=== PATIENT | male | born 1945 | race Caucasian/White ===

== ENCOUNTER → 2020-04-05 | Outpatient (CLI) | payer MEDICARE ==
--- NOTE | 2020-04-05 17:01 | Diagnostic Imaging Report ---
EXAM: CT Abdomen and Pelvis WITHOUT intravenous contrast INDICATION: Abdominal aortic aneurysm COMPARISON: None. TECHNIQUE: Abdomen and pelvis were scanned utilizing a multidetector helical scanner from the lung base to the pubic symphysis without administration of IV contrast. Coronal and sagittal reformations were obtained. IV CONTRAST: None ORAL CONTRAST: Water COMPLICATIONS: None RADIATION DOSE: Total DLP: 695 mGy*cm Dose modulation, iterative reconstruction, and/or weight based adjustment of the mA/kV was utilized to reduce the radiation dose to as low as reasonably achievable. FINDINGS: LOWER THORAX: Normal. HEPATOBILIARY: No focal liver lesion. Status post cholecystectomy. SPLEEN: No splenomegaly. PANCREAS: No focal masses or ductal dilatation. ADRENALS: No adrenal nodules. KIDNEYS/URETERS: No hydronephrosis, stones, or solid mass lesions. PELVIC ORGANS/BLADDER: Unremarkable. PERITONEUM / RETROPERITONEUM: No free air or fluid. LYMPH NODES: No lymphadenopathy. VESSELS: Moderate atherosclerotic calcifications of the abdominal aorta and major branches. Infrarenal abdominal aortic aneurysm measures up to 4.3 x 4.0 cm at its widest point. 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 GI TRACT: Diverticulosis without CT evidence of diverticulitis. No abnormal bowel thickening. No bowel obstruction. Normal appendix. BONES AND SOFT TISSUES: No acute osseous injury. No suspicious lytic or blastic lesions. Prominent degenerative changes of the visualized spine with a prominent Schmorl's node and loss of vertebral body height at L1 and T12. 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 Recommend follow up with [facility] in 12 months for continued surveillance. Signed by: Hal Gallo MD on 04/05/2020 4:58 PM
== END ==
LOC: CARD 15:38
PROVIDERS: ATTEND Family Medicine
DX: I71.4 Abdominal aortic aneurysm, without rupture (principal); I72.3 Aneurysm of iliac artery
CPT/HCPCS: 74176; 93880

== ENCOUNTER 2020-06-21 03:29 | Inpatient (IN) | payer MEDICARE ==
[~2020-06-21] VITALS: Ht 177.8 cm; Wt 81.4 kg
[2020-06-21] MEDS ORDERED: SODIUM CHLORIDE 0.9% 1000ML 1,000 ML IV ONE (03:45)
[2020-06-21] MEDS ORDERED: ACETAMINOPHEN 325 MG TAB PO ONE (03:45)
[2020-06-21] MEDS ORDERED: CEFEPIME 2 GM/NS 0.9% 100 ML 100 ML IV ONE ×2 (03:45→04:15)
[2020-06-21] MEDS ORDERED: PIPER-TAZ 3.375 GM 50 ML IV ONE (03:45)
[2020-06-21 03:55] LABS: BASOPHILS % 0.5 % (0.0-1.0); EOSINOPHILS % 0.1 % (0.0-6.0); HEMOGLOBIN 11.7 g/dL (14.0-18.0); LYMPHOCYTES # (AUTO) 0.6 (1.0-3.2); LYMPHOCYTES % 7.6 % (18.0-39.1); MEAN CORPUSCULAR HEMOGLOBIN 29.1 pg (28-32); MEAN CORPUSCULAR HGB CONC 32.5 g/dL (31-35); MEAN CORPUSCULAR VOLUME 89.6 fL (81-99); MONOCYTES # (AUTO) 0.9 (0.2-0.8); MONOCYTES % 10.3 % (4.4-11.3); NEUTROPHILS # (AUTO) 6.7 (2.1-6.9); PLATELET COUNT 167 x10e3/uL (140-360); RED BLOOD COUNT 4.02 x10e6/uL (4.3-5.7); RED CELL DISTRIBUTION WIDTH 12.8 % (11.7-14.4)
[2020-06-21 03:59] LABS: CLARITY,URINE CLEAR (CLEAR); COLOR,URINE YELLOW (YELLOW); KETONES,URINE 2+ (NEGATIVE); LEUKOCYTE ESTERASE ,URINE NEGATIVE (NEGATIVE); NITRITE,URINE NEGATIVE (NEGATIVE); PROTEIN,URINE DIPSTICK 2+ (NEGATIVE)
[2020-06-21 04:00] LABS: BILIRUBIN,URINE NEGATIVE (NEGATIVE); URINE UROBILINOGEN 1 mg/dL (0.2 - 1)
[2020-06-21 04:04] LABS: INR 1.04; PROTHROMBIN TIME 14.1 seconds (11.9-14.5)
[2020-06-21 04:05] LABS: BACTERIA,URINE FEW /HPF; EPITHELIAL CELLS,URINE MODERATE /LPF; PARTIAL THROMBOPLASTIN TIME 30.7 seconds (23.8-35.5); WBC,URINE (MAN) 0-5 /HPF (0-5)
[2020-06-21] MEDS ORDERED: PIPER-TAZ 3.375 GM 0 ML ONE (04:10)
[2020-06-21 04:13] LABS: AMYLASE 40 U/L (25-125); LIPASE 13 U/L (8-78)
[2020-06-21 04:16] LABS: ALBUMIN 3.9 g/dL (3.5-5.0); ALBUMIN/GLOBULIN RATIO 1.1 (0.8-2.0); ANION GAP 17.7 mmol/L (8-16); CALCIUM 8.9 mg/dL (8.4-10.2); CREATININE, SERUM 2.81 mg/dL (0.72-1.25)
[2020-06-21 04:17] LABS: POTASSIUM 2.7 mmol/L (3.5-5.1)
[2020-06-21 04:22] LABS: CREATINE KINASE MB 2.2 ng/mL (0-5.0)
[2020-06-21] MEDS ORDERED: POTASSIUM CHLORIDE 20MEQ/15ML UDC PO ONE (04:30)
[2020-06-21] MEDS: CEFEPIME 1GM/NS 0.9% 50 ML 50 ML IV SCH ×2 (05:43→18:31)
[2020-06-21] MEDS ORDERED: ONDANSETRON HCL INJ 2MG/ML 2ML 2 MG/ML VIAL IV PRN (05:45)
[2020-06-21] MEDS ORDERED: DEXTROSE IV ONE (09:00)
[2020-06-21] MEDS ORDERED: SOD CHL IV ONE (09:00)
[2020-06-21] MEDS ORDERED: POTASSIUM CHLORIDE IV ONE (09:00)
[2020-06-21] MEDS ORDERED: METFORMIN HCL500 MG PO (13:54)
[2020-06-21] MEDS ORDERED: POTASSIUM CHLO20 ME1 PEG (13:58)
[2020-06-21] MEDS ORDERED: AMARYL4 MG PO (13:59)
[2020-06-21] MEDS ORDERED: BUMETANIDE1 MG PO (13:59)
[2020-06-21] MEDS ORDERED: LISINOPRIL5 MG PO (13:59)
[2020-06-21] MEDS ORDERED: ASPIRIN EC81 MG PO (14:00)
[2020-06-21] MEDS ORDERED: COREG12.5 MG PO (14:00)
[2020-06-21 15:06] VITALS: BP 158/82
[2020-06-21 15:53] VITALS: BP 158/82
[2020-06-21] MEDS ORDERED: VANCOMYCIN 1GM/NS 250 ML 250 ML IV ONE (16:00)
[2020-06-21] MEDS ORDERED: METOPROLOL TART25 MG PO (19:35)
[2020-06-21] MEDS ORDERED: TIZANIDINE HCL4 MG PO (19:35)
[2020-06-21] MEDS ORDERED: RAYALDEE30 MCG PO (19:35)
[2020-06-21] MEDS ORDERED: LASIX80 MG PO (19:35)
[2020-06-21] MEDS ORDERED: NIFEDIPINE ER30 M1 PO (19:35)
[2020-06-21 20:00] VITALS: BP 144/76
[2020-06-21 20:26] VITALS: BP 144/76
[2020-06-21 20:29] VITALS: BP 144/76
[2020-06-22] VITALS: BP 152/87
[2020-06-22] MEDS ORDERED: SODIUM CHLORIDE 0.9% 250ML 250 ML ONE (05:20)
[2020-06-22] MEDS: CEFEPIME 1GM/NS 0.9% 50 ML 50 ML IV SCH ×2 (05:30→18:20)
[2020-06-22] MEDS ORDERED: SIMVASTATIN40 MG PO (07:02)
[2020-06-22] MEDS ORDERED: FAMOTIDINE20 MG PO (07:04)
[2020-06-22] MEDS ORDERED: ASPIRIN ENTERI325 MG PO (07:06)
[2020-06-22] MEDS ORDERED: BENADRYL25 M1 PO (07:08)
[2020-06-22] MEDS ORDERED: FUROSEMIDE40 MG PO (07:10)
[2020-06-22 07:29] LABS: BASOPHILS % 0.6 % (0.0-1.0); EOSINOPHILS # (AUTO) 0.2 (0.0-0.4); EOSINOPHILS % 2.4 % (0.0-6.0); HEMATOCRIT 37.9 % (38.2-49.6); HEMOGLOBIN 12.4 g/dL (14.0-18.0); LYMPHOCYTES % 15.3 % (18.0-39.1); MEAN CORPUSCULAR HEMOGLOBIN 29.8 pg (28-32); MEAN CORPUSCULAR HGB CONC 32.7 g/dL (31-35); MEAN CORPUSCULAR VOLUME 91.1 fL (81-99); MONOCYTES # (AUTO) 0.7 (0.2-0.8); MONOCYTES % 10.7 % (4.4-11.3); NEUTROPHILS # (AUTO) 4.8 (2.1-6.9); NEUTROPHILS % 70.4 % (38.7-80.0); PLATELET COUNT 142 x10e3/uL (140-360); RED BLOOD COUNT 4.16 x10e6/uL (4.3-5.7); RED CELL DISTRIBUTION WIDTH 12.8 % (11.7-14.4)
[2020-06-22 07:35] VITALS: BP 158/78
[2020-06-22] MEDS ORDERED: RAYALDEE30 MCG PO (07:35)
[2020-06-22 07:49] LABS: ALBUMIN 3.7 g/dL (3.5-5.0); ALBUMIN/GLOBULIN RATIO 1.1 (0.8-2.0); ANION GAP 15.3 mmol/L (8-16); CALCIUM 8.9 mg/dL (8.4-10.2); CREATININE, SERUM 2.05 mg/dL (0.72-1.25); POTASSIUM 3.3 mmol/L (3.5-5.1)
[2020-06-22 08:03] LABS: MAGNESIUM 1.9 MG/DL (1.3-2.1)
[2020-06-22] MEDS ORDERED: FLUTICASONE P15.8 ML (08:48)
[2020-06-22] MEDS ORDERED: LOPERAMIDE2 MG PO (08:48)
[2020-06-22] MEDS: LACTASE 3,000 UNIT TAB PO SCH (09:29)
[2020-06-22 11:41] VITALS: BP 144/71
[2020-06-22] MEDS ORDERED: POTASSIUM PHOSPHATE 15 MM in SODIUM CHLORIDE 0.9% 250ML 250 ML IV ONE (12:00)
[2020-06-22] MEDS: ASPIRIN 325 MG TAB EC PO SCH (12:28)
[2020-06-22] MEDS: ALBUTEROL/IPRATROPIUM 3 ML NEB NEB SCH ×2 (13:00→19:03)
[2020-06-22] MEDS: ACETAMINOPHEN 325 MG TAB PO PRN (13:21)
[2020-06-22 15:36] VITALS: BP 133/60
[2020-06-22] MEDS ORDERED: METOPROLOL TARTRATE 25 MG TAB PO SCH (17:00)
[2020-06-22] MEDS ORDERED: LORAZEPAM INJ 2 MG/ML VIAL IV PRN (18:00)
[2020-06-22] MEDS: METOPROLOL TARTRATE 50 MG TAB PO SCH (18:31)
[2020-06-22] MEDS: FAMOTIDINE 20 MG TAB PO SCH (18:31)
[2020-06-22 20:00] VITALS: BP 129/59
[2020-06-22 20:01] VITALS: BP 129/59
[2020-06-22] MEDS: SIMVASTATIN 40 MG TAB PO SCH (20:10)
[2020-06-22] MEDS ORDERED: LACTASE 3,000 UNIT TAB PO SCH (21:00)
[2020-06-23] VITALS (7 sets, daily range): BP systolic 122–139; BP diastolic 46–64
[2020-06-23] MEDS: ALBUTEROL/IPRATROPIUM 3 ML NEB NEB SCH ×3 (01:00→13:00)
[2020-06-23 05:55] LABS: BASOPHILS % 0.8 % (0.0-1.0); HEMATOCRIT 33.2 % (38.2-49.6); HEMOGLOBIN 10.8 g/dL (14.0-18.0); LYMPHOCYTES # (AUTO) 0.6 (1.0-3.2); LYMPHOCYTES % 13.1 % (18.0-39.1); MEAN CORPUSCULAR HEMOGLOBIN 29.5 pg (28-32); MEAN CORPUSCULAR HGB CONC 32.5 g/dL (31-35); MEAN CORPUSCULAR VOLUME 90.7 fL (81-99); MONOCYTES # (AUTO) 0.3 (0.2-0.8); MONOCYTES % 5.7 % (4.4-11.3); NEUTROPHILS # (AUTO) 3.8 (2.1-6.9); NEUTROPHILS % 79.8 % (38.7-80.0); PLATELET COUNT 129 x10e3/uL (140-360); RED BLOOD COUNT 3.66 x10e6/uL (4.3-5.7); RED CELL DISTRIBUTION WIDTH 12.9 % (11.7-14.4)
[2020-06-23] MEDS: CEFEPIME 1GM/NS 0.9% 50 ML 50 ML IV SCH ×2 (05:58→16:49)
[2020-06-23 06:16] LABS: ANION GAP 13.2 mmol/L (8-16); CALCIUM 8.3 mg/dL (8.4-10.2); CREATININE, SERUM 2.18 mg/dL (0.72-1.25); POTASSIUM 3.2 mmol/L (3.5-5.1)
[2020-06-23] MEDS: POTASSIUM CHLORIDE 20 MEQ TAB CR PO SCH (09:52)
[2020-06-23] MEDS: LACTASE 3,000 UNIT TAB PO SCH (09:52)
[2020-06-23] MEDS: ASPIRIN 325 MG TAB EC PO SCH (09:52)
[2020-06-23] MEDS: METOPROLOL TARTRATE 50 MG TAB PO SCH ×2 (09:52→16:49)
[2020-06-23] MEDS: FAMOTIDINE 20 MG TAB PO SCH ×2 (09:52→16:49)
[2020-06-23 16:40] LABS: FREE THYROXINE INDEX 1.6435 (1.4-3.8); THYROID STIMULATING HORMONE 1.978 uIU/mL (0.350-4.940)
[2020-06-23] MEDS: ACETAMINOPHEN 325 MG TAB PO PRN (16:50)
[2020-06-23] MEDS ORDERED: VANCOMYCIN 1GM/NS 250 ML 250 ML IV ONE ×2 (19:00→19:30)
[2020-06-23] MEDS: TAMSULOSIN HCL 0.4 MG CAP PO SCH (19:36)
[2020-06-23] MEDS: SIMVASTATIN 40 MG TAB PO SCH (19:37)
[2020-06-23 21:08] LABS: ALPHA 2 GLOBULIN URINE PEP 24.5 % (.)
[2020-06-23] MEDS: MEROPENEM 1GM 100 ML IV SCH (23:00)
[2020-06-24] VITALS (11 sets, daily range): BP systolic 81–125; BP diastolic 43–64
[2020-06-24] MEDS: ACETAMINOPHEN 325 MG TAB PO PRN ×3 (03:34→22:55)
[2020-06-24] MEDS: MEROPENEM 1GM 100 ML IV SCH ×2 (04:52→13:19)
[2020-06-24 07:12] LABS: ANION GAP 13.3 mmol/L (8-16); CALCIUM 8.4 mg/dL (8.4-10.2); CREATININE, SERUM 2.36 mg/dL (0.72-1.25); MAGNESIUM 1.9 MG/DL (1.3-2.1); PHOSPHORUS 2.7 MG/DL (2.3-4.7); POTASSIUM 3.3 mmol/L (3.5-5.1)
[2020-06-24] MEDS: ALBUTEROL/IPRATROPIUM 3 ML NEB NEB SCH ×3 (07:38→15:02)
[2020-06-24] MEDS: LACTASE 3,000 UNIT TAB PO SCH (09:46)
[2020-06-24] MEDS: ASPIRIN 325 MG TAB EC PO SCH (09:46)
[2020-06-24] MEDS: POTASSIUM CHLORIDE 20 MEQ TAB CR PO SCH (09:46)
[2020-06-24] MEDS: FAMOTIDINE 20 MG TAB PO SCH ×2 (09:47→17:14)
[2020-06-24] MEDS: METOPROLOL TARTRATE 50 MG TAB PO SCH ×2 (09:47→17:00)
[2020-06-24] MEDS: DOCUSATE SODIUM 100 MG CAP PO SCH (10:04)
[2020-06-24] MEDS: SODIUM CHLORIDE 0.9% 1000ML 1,000 ML IV SCH (13:19)
[2020-06-24] MEDS: TAMSULOSIN HCL 0.4 MG CAP PO SCH (20:44)
[2020-06-24] MEDS: SIMVASTATIN 40 MG TAB PO SCH (20:44)
[2020-06-25] VITALS (35 sets, daily range): BP systolic 70–145; BP diastolic 31–99
[2020-06-25] MEDS: SODIUM CHLORIDE 0.9% 1000ML 1,000 ML IV SCH ×3 (00:25→18:05)
[2020-06-25] MEDS: ALBUTEROL/IPRATROPIUM 3 ML NEB NEB SCH ×4 (01:00→19:25)
[2020-06-25] MEDS ORDERED: SODIUM CHLORIDE 0.9% 1000ML 1,000 ML IV SCH (03:45)
[2020-06-25 04:07] LABS: ABG HCO3 22 mmol/L (22-26); ABG PCO2 35 mmHg (35-45); ABG PH 7.39 (7.35-7.45); ABG PO2 76 mmHg (80-105)
[2020-06-25 04:08] LABS: ABG TCO2 23
[2020-06-25 04:10] LABS: BASOPHILS % 0.5 % (0.0-1.0); EOSINOPHILS % 0.3 % (0.0-6.0); HEMATOCRIT 29.1 % (38.2-49.6); HEMOGLOBIN 9.6 g/dL (14.0-18.0); LYMPHOCYTES # (AUTO) 0.4 (1.0-3.2); LYMPHOCYTES % 5.6 % (18.0-39.1); MEAN CORPUSCULAR VOLUME 87.9 fL (81-99); MONOCYTES # (AUTO) 0.4 (0.2-0.8); MONOCYTES % 6.2 % (4.4-11.3); NEUTROPHILS # (AUTO) 5.5 (2.1-6.9); NEUTROPHILS % 86.2 % (38.7-80.0); PLATELET COUNT 90 x10e3/uL (140-360); RED BLOOD COUNT 3.31 x10e6/uL (4.3-5.7); RED CELL DISTRIBUTION WIDTH 13.1 % (11.7-14.4)
[2020-06-25] MEDS ORDERED: NOREPINEPHRINE 8 MG/D5W 250 ML 250 ML ONE (04:32)
[2020-06-25 04:33] LABS: ALBUMIN 2.8 g/dL (3.5-5.0); ANION GAP 13.6 mmol/L (8-16); CALCIUM 7.9 mg/dL (8.4-10.2); CREATININE, SERUM 3.36 mg/dL (0.72-1.25); POTASSIUM 3.6 mmol/L (3.5-5.1)
[2020-06-25] MEDS: NOREPINEPHRINE INJ 4MG/4ML 8 MG in DEXTROSE 5% 250ML 250 ML IV SCH ×2 (04:37→05:11)
[2020-06-25] MEDS: MEROPENEM 500MG/ NS 50ML 50 ML IV SCH (06:07)
[2020-06-25] MEDS ORDERED: MIDAZOLAM HCL 2 MG/2 ML VIAL IV STA (08:19)
[2020-06-25] MEDS ORDERED: MORPHINE SULFATE INJ 4 MG/ML INJ 1ML ONE (08:20)
[2020-06-25] MEDS ORDERED: LIDOCAINE HCL 2% LOCAL 20 ML VIAL ONE (08:28)
[2020-06-25] MEDS ORDERED: MIDAZOLAM HCL 2 MG/2 ML VIAL ONE (08:30)
[2020-06-25] MEDS ORDERED: MORPHINE SULFATE INJ 4 MG/ML INJ 1ML IV ONE (08:30)
[2020-06-25] MEDS: METOPROLOL TARTRATE 50 MG TAB PO SCH ×2 (09:00→17:00)
[2020-06-25] MEDS: FAMOTIDINE 20 MG TAB PO SCH ×2 (09:00→17:00)
[2020-06-25] MEDS: POTASSIUM CHLORIDE 20 MEQ TAB CR PO SCH (09:00)
[2020-06-25] MEDS: ASPIRIN 325 MG TAB EC PO SCH (09:00)
[2020-06-25] MEDS: DOCUSATE SODIUM 100 MG CAP PO SCH (09:00)
[2020-06-25] MEDS: LACTASE 3,000 UNIT TAB PO SCH (09:00)
[2020-06-25] MEDS ORDERED: SODIUM BICARBONATE 8.4% INJ 50 ML SYR IV NR (09:30)
[2020-06-25] MEDS ORDERED: SODIUM BICARB 4.2% 150 MEQ in DEXTROSE 5% 1,000 ML IV SCH (10:00)
[2020-06-25] MEDS: SODIUM BICARBONATE 8.4% 150 ML in DEXTROSE 5% 1,000 ML IV SCH (10:00)
[2020-06-25] MEDS ORDERED: HEPARIN SOD (PORCINE) 1000 UNIT/ML SDV ONE (11:32)
[2020-06-25] MEDS ORDERED: HEPARIN SOD (PORCINE) 1000 UNIT/ML SDV IV PRN (13:00)
[2020-06-25 13:49] LABS: ANION GAP 14.8 mmol/L (8-16); CALCIUM 7.7 mg/dL (8.4-10.2); CREATININE, SERUM 3.77 mg/dL (0.72-1.25); POTASSIUM 3.8 mmol/L (3.5-5.1)
[2020-06-25] MEDS: ACETAMINOPHEN 325 MG SUPP PR PRN (14:49)
[2020-06-25] MEDS: LINEZOLID 600 MG/D5W 300ML 300 ML IV SCH (17:59)
[2020-06-25] MEDS: ACETAMINOPHEN/CODEINE 300MG - 30MG TAB PO PRN (19:30)
[2020-06-25] MEDS: SIMVASTATIN 40 MG TAB PO SCH (20:33)
[2020-06-25] MEDS: TAMSULOSIN HCL 0.4 MG CAP PO SCH (20:33)
[2020-06-25] MEDS: HEPARIN SOD (PORCINE) 5,000 UNIT/ML VIAL SC SCH (21:00)
[2020-06-26] VITALS (17 sets, daily range): BP systolic 97–144; BP diastolic 40–98
[2020-06-26] MEDS: ALBUTEROL/IPRATROPIUM 3 ML NEB NEB SCH ×4 (00:50→19:00)
[2020-06-26] MEDS: SODIUM BICARBONATE 8.4% 150 ML in DEXTROSE 5% 1,000 ML IV SCH ×2 (00:57→18:33)
[2020-06-26] MEDS: ACETAMINOPHEN 325 MG TAB PO PRN (01:38)
[2020-06-26] MEDS ORDERED: NOREPINEPHRINE 8 MG/D5W 250 ML 250 ML ONE (05:20)
[2020-06-26 05:31] LABS: BASOPHILS % 0.6 % (0.0-1.0); EOSINOPHILS # (AUTO) 0.1 (0.0-0.4); EOSINOPHILS % 0.7 % (0.0-6.0); HEMOGLOBIN 8.9 g/dL (14.0-18.0); LYMPHOCYTES # (AUTO) 0.7 (1.0-3.2); LYMPHOCYTES % 10.3 % (18.0-39.1); MEAN CORPUSCULAR HEMOGLOBIN 28.6 pg (28-32); MEAN CORPUSCULAR VOLUME 86.8 fL (81-99); MONOCYTES # (AUTO) 0.2 (0.2-0.8); MONOCYTES % 3.4 % (4.4-11.3); NEUTROPHILS # (AUTO) 5.9 (2.1-6.9); NEUTROPHILS % 84.3 % (38.7-80.0); PLATELET COUNT 85 x10e3/uL (140-360); RED BLOOD COUNT 3.11 x10e6/uL (4.3-5.7); RED CELL DISTRIBUTION WIDTH 13.2 % (11.7-14.4)
[2020-06-26] MEDS: LINEZOLID 600 MG/D5W 300ML 300 ML IV SCH (05:33)
[2020-06-26] MEDS: MEROPENEM 500MG/ NS 50ML 50 ML IV SCH (05:33)
[2020-06-26] MEDS: NOREPINEPHRINE INJ 4MG/4ML 8 MG in DEXTROSE 5% 250ML 250 ML IV SCH (05:35)
[2020-06-26] MEDS: ACETAMINOPHEN/CODEINE 300MG - 30MG TAB PO PRN ×2 (05:38→20:53)
[2020-06-26 05:48] LABS: INR 1.2; PROTHROMBIN TIME 15.8 seconds (11.9-14.5)
[2020-06-26 06:04] LABS: ALBUMIN 2.6 g/dL (3.5-5.0); ALBUMIN/GLOBULIN RATIO 1.1 (0.8-2.0); ANION GAP 14.3 mmol/L (8-16); CALCIUM 7.7 mg/dL (8.4-10.2); CREATININE, SERUM 4.7 mg/dL (0.72-1.25); POTASSIUM 3.3 mmol/L (3.5-5.1)
[2020-06-26] MEDS: SODIUM CHLORIDE 0.9% 1000ML 1,000 ML IV SCH (07:25)
[2020-06-26] MEDS: HEPARIN SOD (PORCINE) 5,000 UNIT/ML VIAL SC SCH (07:46)
[2020-06-26] MEDS: ASPIRIN 325 MG TAB EC PO SCH (07:48)
[2020-06-26] MEDS: DOCUSATE SODIUM 100 MG CAP PO SCH (07:48)
[2020-06-26] MEDS: POTASSIUM CHLORIDE 20 MEQ TAB CR PO SCH (07:49)
[2020-06-26] MEDS: FAMOTIDINE 20 MG TAB PO SCH ×2 (07:49→18:18)
[2020-06-26] MEDS: METOPROLOL TARTRATE 50 MG TAB PO SCH (07:49)
[2020-06-26 08:19] LABS: BAND NEUTROPHILS % (MANUAL) 9 %; LYMPHOCYTES % (MANUAL) 11 % (19-48); MONOCYTES % (MANUAL) 3 % (3.4-9.0); NEUTROPHILS % (MANUAL) 77 % (40-74)
[2020-06-26 08:20] LABS: PLATELET ESTIMATE SLIGHTLY DECREASED; PLATELET MORPHOLOGY COMMENT NORMAL; RBC MORPHOLOGY COMMENT NORMAL
[2020-06-26] MEDS: LACTASE 3,000 UNIT TAB PO SCH (09:00)
[2020-06-26] MEDS ORDERED: POTASSIUM PHOSPHATE 15 MM in SODIUM CHLORIDE 0.9% 250ML 250 ML IV ONE (12:00)
[2020-06-26] MEDS ORDERED: AMIODARONE HCL 150 MG/100 ML BAG IV ONE (18:15)
[2020-06-26] MEDS ORDERED: AMIODARONE HCL 900 MG in DEXTROSE 5% 500ML 500 ML IV SCH (18:15)
[2020-06-26] MEDS ORDERED: AMIODARONE HCL 100 ML IV ONE (18:26)
[2020-06-26] MEDS ORDERED: AMIODARONE HCL 150 MG in DEXTROSE 5% 100ML 100 ML IV SCH (18:35)
[2020-06-26] MEDS ORDERED: HEPARIN SOD (PORCINE) 1000 UNIT/ML SDV IV ONE (18:35)
[2020-06-26] MEDS ORDERED: AMIODARONE HCL 900 MG in DEXTROSE 5 % 500ML BOTTLE 500 ML IV SCH (18:40)
[2020-06-26] MEDS: ACETAMINOPHEN 325 MG SUPP PR PRN (19:45)
[2020-06-26] MEDS: HEPARIN 25,000 UNIT 900 UNIT in DEXTROSE 5% 250ML 250 ML IV SCH (19:46)
[2020-06-26] MEDS: SIMVASTATIN 40 MG TAB PO SCH (20:28)
[2020-06-27] VITALS (15 sets, daily range): BP systolic 81–136; BP diastolic 42–84
[2020-06-27] MEDS: ALBUTEROL/IPRATROPIUM 3 ML NEB NEB SCH ×4 (01:00→22:18)
[2020-06-27] MEDS: SODIUM CHLORIDE 0.9% 1000ML 1,000 ML IV SCH (01:52)
[2020-06-27 06:24] LABS: ANION GAP 17.5 mmol/L (8-16); CALCIUM 7.3 mg/dL (8.4-10.2); CREATININE, SERUM 5.67 mg/dL (0.72-1.25); MAGNESIUM 1.8 MG/DL (1.3-2.1); PHOSPHORUS 2.8 MG/DL (2.3-4.7); POTASSIUM 3.5 mmol/L (3.5-5.1)
[2020-06-27] MEDS: SODIUM BICARBONATE 8.4% 150 ML in DEXTROSE 5% 1,000 ML IV SCH (06:46)
[2020-06-27] MEDS: ASPIRIN 325 MG TAB EC PO SCH (08:52)
[2020-06-27] MEDS: DOCUSATE SODIUM 100 MG CAP PO SCH (08:52)
[2020-06-27] MEDS: FAMOTIDINE 20 MG TAB PO SCH ×2 (08:52→18:00)
[2020-06-27] MEDS: POTASSIUM CHLORIDE 20 MEQ TAB CR PO SCH (08:52)
[2020-06-27] MEDS: FUROSEMIDE 20 MG TAB PO SCH (08:52)
[2020-06-27] MEDS: LACTASE 3,000 UNIT TAB PO SCH (08:52)
[2020-06-27] MEDS ORDERED: MANNITOL 25% 12.5GM/50ML 100 ML ONE (10:50)
[2020-06-27] MEDS ORDERED: SODIUM CHLORIDE 0.9% 1000ML 2,000 ML ONE (10:51)
[2020-06-27] MEDS ORDERED: HEPARIN SOD (PORCINE) 1000 UNIT/ML SDV ONE (10:51)
[2020-06-27] MEDS ORDERED: SODIUM CHLORIDE 0.9% 1000ML 1,000 ML ONE (11:36)
[2020-06-27] MEDS: AMIODARONE HCL 200 MG TAB PO SCH ×2 (13:50→21:35)
[2020-06-27] MEDS: HEPARIN 25,000 UNIT 900 UNIT in DEXTROSE 5% 250ML 250 ML IV SCH (20:00)
[2020-06-27] MEDS: SIMVASTATIN 40 MG TAB PO SCH (21:34)
[2020-06-27] MEDS: ACETAMINOPHEN/CODEINE 300MG - 30MG TAB PO PRN (21:34)
[2020-06-28] VITALS (18 sets, daily range): BP systolic 95–140; BP diastolic 46–106
[2020-06-28] MEDS: ALBUTEROL/IPRATROPIUM 3 ML NEB NEB SCH ×5 (01:00→23:55)
[2020-06-28] MEDS: NOREPINEPHRINE INJ 4MG/4ML 8 MG in DEXTROSE 5% 250ML 250 ML IV SCH (03:00)
[2020-06-28] MEDS: AMIODARONE HCL 200 MG TAB PO SCH ×3 (05:59→20:59)
[2020-06-28] MEDS: ACETAMINOPHEN/CODEINE 300MG - 30MG TAB PO PRN ×3 (05:59→21:17)
[2020-06-28 06:02] LABS: BASOPHILS % 0.3 % (0.0-1.0); EOSINOPHILS # (AUTO) 0.6 (0.0-0.4); EOSINOPHILS % 4.8 % (0.0-6.0); HEMATOCRIT 25.4 % (38.2-49.6); HEMOGLOBIN 8.3 g/dL (14.0-18.0); LYMPHOCYTES # (AUTO) 1.8 (1.0-3.2); LYMPHOCYTES % 13.9 % (18.0-39.1); MEAN CORPUSCULAR HEMOGLOBIN 28.6 pg (28-32); MEAN CORPUSCULAR HGB CONC 32.7 g/dL (31-35); MEAN CORPUSCULAR VOLUME 87.6 fL (81-99); MONOCYTES # (AUTO) 0.6 (0.2-0.8); MONOCYTES % 4.2 % (4.4-11.3); NEUTROPHILS # (AUTO) 10.1 (2.1-6.9); RED CELL DISTRIBUTION WIDTH 13.7 % (11.7-14.4)
[2020-06-28 06:09] LABS: PLATELET COUNT 114 x10e3/uL (140-360)
[2020-06-28 06:27] LABS: ALBUMIN 2.6 g/dL (3.5-5.0); ANION GAP 15.2 mmol/L (8-16); CALCIUM 7.5 mg/dL (8.4-10.2); CREATININE, SERUM 5.36 mg/dL (0.72-1.25); POTASSIUM 4.2 mmol/L (3.5-5.1)
[2020-06-28 06:56] LABS: EOSINOPHILS % (MANUAL) 3 % (0-7); LYMPHOCYTES % (MANUAL) 15 % (19-48); MONOCYTES % (MANUAL) 1 % (3.4-9.0); NEUTROPHILS % (MANUAL) 81 % (40-74); PLATELET ESTIMATE SLIGHTLY DECREASED; PLATELET MORPHOLOGY COMMENT NORMAL; RBC MORPHOLOGY COMMENT NORMAL
[2020-06-28] MEDS: DOCUSATE SODIUM 100 MG CAP PO SCH (08:04)
[2020-06-28] MEDS: ASPIRIN 325 MG TAB EC PO SCH (08:04)
[2020-06-28] MEDS: POTASSIUM CHLORIDE 20 MEQ TAB CR PO SCH (08:05)
[2020-06-28] MEDS: LACTASE 3,000 UNIT TAB PO SCH (08:05)
[2020-06-28] MEDS: FUROSEMIDE 20 MG TAB PO SCH (08:05)
[2020-06-28] MEDS: FAMOTIDINE 20 MG TAB PO SCH ×2 (08:05→17:54)
[2020-06-28] MEDS ORDERED: SODIUM CHLORIDE 0.9% 1000ML 1,000 ML ONE (08:35)
[2020-06-28] MEDS ORDERED: HEPARIN SOD (PORCINE) 1000 UNIT/ML SDV IV PRN (11:00)
[2020-06-28] MEDS ORDERED: SODIUM CHLORIDE 0.9% 1000ML 2,000 ML IV PRN (11:00)
[2020-06-28] MEDS: HEPARIN 25,000 UNIT 900 UNIT in DEXTROSE 5% 250ML 250 ML IV SCH (18:45)
[2020-06-28] MEDS: SIMVASTATIN 40 MG TAB PO SCH (20:59)
[2020-06-29] VITALS (7 sets, daily range): BP systolic 94–132; BP diastolic 60–92
[2020-06-29 04:51] LABS: BASOPHILS % 0.3 % (0.0-1.0); EOSINOPHILS # (AUTO) 0.2 (0.0-0.4); EOSINOPHILS % 1.8 % (0.0-6.0); HEMATOCRIT 23.3 % (38.2-49.6); HEMOGLOBIN 7.8 g/dL (14.0-18.0); LYMPHOCYTES # (AUTO) 1.1 (1.0-3.2); LYMPHOCYTES % 9.5 % (18.0-39.1); MEAN CORPUSCULAR HGB CONC 33.5 g/dL (31-35); MEAN CORPUSCULAR VOLUME 89.6 fL (81-99); MONOCYTES # (AUTO) 0.5 (0.2-0.8); MONOCYTES % 4.7 % (4.4-11.3); NEUTROPHILS # (AUTO) 9.2 (2.1-6.9); NEUTROPHILS % 82.9 % (38.7-80.0); PLATELET COUNT 152 x10e3/uL (140-360); RED CELL DISTRIBUTION WIDTH 13.8 % (11.7-14.4)
[2020-06-29 05:10] LABS: ANION GAP 14.2 mmol/L (8-16); CALCIUM 7.5 mg/dL (8.4-10.2); CREATININE, SERUM 4.42 mg/dL (0.72-1.25); POTASSIUM 4.2 mmol/L (3.5-5.1)
[2020-06-29] MEDS: AMIODARONE HCL 200 MG TAB PO SCH ×3 (06:08→21:40)
[2020-06-29 07:10] LABS: EOSINOPHILS % (MANUAL) 2 % (0-7); LYMPHOCYTES % (MANUAL) 9 % (19-48); MONOCYTES % (MANUAL) 4 % (3.4-9.0); NEUTROPHILS % (MANUAL) 85 % (40-74)
[2020-06-29 07:11] LABS: HYPOCHROMASIA SLIGHT
[2020-06-29 07:12] LABS: PLATELET ESTIMATE ADEQUATE; PLATELET MORPHOLOGY COMMENT NORMAL; RBC MORPHOLOGY COMMENT NORMAL
[2020-06-29] MEDS: ALBUTEROL/IPRATROPIUM 3 ML NEB NEB SCH ×3 (07:20→19:20)
[2020-06-29] MEDS: DOCUSATE SODIUM 100 MG CAP PO SCH (08:10)
[2020-06-29] MEDS: ASPIRIN 325 MG TAB EC PO SCH (08:10)
[2020-06-29] MEDS: FUROSEMIDE 20 MG TAB PO SCH (08:10)
[2020-06-29] MEDS: LACTASE 3,000 UNIT TAB PO SCH (08:10)
[2020-06-29] MEDS: POTASSIUM CHLORIDE 20 MEQ TAB CR PO SCH (08:10)
[2020-06-29] MEDS: FAMOTIDINE 20 MG TAB PO SCH ×2 (08:11→18:11)
[2020-06-29] MEDS: ACETAMINOPHEN/CODEINE 300MG - 30MG TAB PO PRN ×2 (08:11→13:29)
[2020-06-29] MEDS ORDERED: HEPARIN SOD (PORCINE) 1000 UNIT/ML SDV IV PRN (08:15)
[2020-06-29 08:56] LABS: % IRON SATURATION 15 % (15-50); IRON 24 ug/dL (65-175); TOTAL IRON BINDING CAPACITY 162 ug/dL (261-478); TRANSFERRIN 116 mg/dL (174-364)
[2020-06-29] MEDS: HEPARIN 25,000 UNIT 900 UNIT in DEXTROSE 5% 250ML 250 ML IV SCH (18:45)
[2020-06-29] MEDS: TAMSULOSIN HCL 0.4 MG CAP PO SCH (21:40)
[2020-06-29] MEDS: SIMVASTATIN 40 MG TAB PO SCH (21:40)
[2020-06-30] VITALS (11 sets, daily range): BP systolic 87–138; BP diastolic 46–95
[2020-06-30] MEDS: ACETAMINOPHEN 325 MG TAB PO PRN (00:20)
[2020-06-30] MEDS: ALBUTEROL/IPRATROPIUM 3 ML NEB NEB SCH ×4 (00:50→20:15)
[2020-06-30] MEDS: AMIODARONE HCL 200 MG TAB PO SCH (06:37)
[2020-06-30] MEDS: ASPIRIN 325 MG TAB EC PO SCH (08:43)
[2020-06-30] MEDS: LACTASE 3,000 UNIT TAB PO SCH (08:43)
[2020-06-30] MEDS: FAMOTIDINE 20 MG TAB PO SCH ×2 (08:43→17:00)
[2020-06-30] MEDS: DOCUSATE SODIUM 100 MG CAP PO SCH (08:43)
[2020-06-30 12:26] LABS: INR 1.28; PROTHROMBIN TIME 16.6 seconds (11.9-14.5)
[2020-06-30] MEDS ORDERED: FENTANYL CITRATE/PF 100MCG/2 ML INJ ONE (15:50)
[2020-06-30] MEDS ORDERED: MIDAZOLAM HCL 2 MG/2 ML VIAL ONE (15:50)
[2020-06-30] MEDS ORDERED: HEPARIN SOD (PORCINE) 1000 UNIT/ML SDV ONE (15:51)
[2020-06-30] MEDS ORDERED: LIDOCAINE HCL 1% LOCAL INJ 20 ML VIAL ONE (15:51)
[2020-06-30] MEDS ORDERED: SODIUM CHLORIDE 0.9% 250ML 250 ML ONE (15:52)
[2020-06-30] MEDS: TAMSULOSIN HCL 0.4 MG CAP PO SCH (20:51)
[2020-06-30] MEDS: SIMVASTATIN 40 MG TAB PO SCH (20:51)
[2020-07-01] VITALS (8 sets, daily range): BP systolic 86–113; BP diastolic 39–65
[2020-07-01] MEDS: ACETAMINOPHEN 325 MG TAB PO PRN ×2 (00:17→22:58)
[2020-07-01] MEDS: ALBUTEROL/IPRATROPIUM 3 ML NEB NEB SCH ×4 (01:10→19:00)
[2020-07-01 06:22] LABS: ALBUMIN 2.4 g/dL (3.5-5.0); ALBUMIN/GLOBULIN RATIO 0.9 (0.8-2.0); ANION GAP 15.8 mmol/L (8-16); CALCIUM 7.6 mg/dL (8.4-10.2); CREATININE, SERUM 5.8 mg/dL (0.72-1.25); POTASSIUM 3.8 mmol/L (3.5-5.1)
[2020-07-01 07:27] LABS: BASOPHILS % 0.4 % (0.0-1.0); EOSINOPHILS # (AUTO) 0.2 (0.0-0.4); EOSINOPHILS % 2.3 % (0.0-6.0); HEMATOCRIT 22.9 % (38.2-49.6); HEMOGLOBIN 7.4 g/dL (14.0-18.0); LYMPHOCYTES # (AUTO) 0.9 (1.0-3.2); MEAN CORPUSCULAR HEMOGLOBIN 28.4 pg (28-32); MEAN CORPUSCULAR HGB CONC 32.3 g/dL (31-35); MEAN CORPUSCULAR VOLUME 87.7 fL (81-99); MONOCYTES # (AUTO) 0.4 (0.2-0.8); MONOCYTES % 4.1 % (4.4-11.3); NEUTROPHILS # (AUTO) 8.5 (2.1-6.9); PLATELET COUNT 210 x10e3/uL (140-360); RED BLOOD COUNT 2.61 x10e6/uL (4.3-5.7); RED CELL DISTRIBUTION WIDTH 14.3 % (11.7-14.4)
[2020-07-01] MEDS ORDERED: SODIUM CHLORIDE 0.9% 1000ML 2,000 ML IV PRN (10:15)
[2020-07-01] MEDS ORDERED: HEPARIN SOD (PORCINE) 1000 UNIT/ML SDV IV PRN (10:15)
[2020-07-01] MEDS ORDERED: MANNITOL 25% 12.5GM/50 ML VIAL IV PRN (10:15)
[2020-07-01] MEDS ORDERED: ALBUMIN 25% 12.5GM 0.25 GM/ML BTL IV PRN (10:15)
[2020-07-01] MEDS ORDERED: SODIUM CHLORIDE 0.9% 250ML 500 ML IV PRN (10:15)
[2020-07-01] MEDS ORDERED: SODIUM CHLORIDE 0.9% 250ML 250 ML IV ONE (11:30)
[2020-07-01] MEDS: LACTASE 3,000 UNIT TAB PO SCH (11:57)
[2020-07-01] MEDS: ASPIRIN 325 MG TAB EC PO SCH (11:57)
[2020-07-01] MEDS: DOCUSATE SODIUM 100 MG CAP PO SCH (11:57)
[2020-07-01] MEDS: FAMOTIDINE 20 MG TAB PO SCH ×2 (11:58→19:41)
[2020-07-01] MEDS: HEPARIN 25,000 UNIT 25,000 UNIT in DEXTROSE 5% 250ML 250 ML IV SCH (12:45)
[2020-07-01] MEDS: AMIODARONE HCL 200 MG TAB PO SCH ×2 (13:54→21:50)
[2020-07-01] MEDS: SODIUM CHLORIDE FLUSH 10 ML SYR INJ PRN (14:26)
[2020-07-01] MEDS: TAMSULOSIN HCL 0.4 MG CAP PO SCH (20:59)
[2020-07-01] MEDS: SIMVASTATIN 40 MG TAB PO SCH (20:59)
[2020-07-02] VITALS (14 sets, daily range): BP systolic 88–149; BP diastolic 47–122
[2020-07-02] MEDS: ALBUTEROL/IPRATROPIUM 3 ML NEB NEB SCH ×3 (01:00→12:25)
[2020-07-02] MEDS: ACETAMINOPHEN 325 MG TAB PO PRN ×3 (04:00→21:41)
[2020-07-02] MEDS: AMIODARONE HCL 200 MG TAB PO SCH ×4 (05:42→22:04)
[2020-07-02 05:54] LABS: BASOPHILS # (AUTO) 0.1 (0.0-0.1); BASOPHILS % 0.7 % (0.0-1.0); EOSINOPHILS # (AUTO) 0.3 (0.0-0.4); EOSINOPHILS % 3.3 % (0.0-6.0); HEMATOCRIT 24.8 % (38.2-49.6); HEMOGLOBIN 8.2 g/dL (14.0-18.0); LYMPHOCYTES # (AUTO) 1.3 (1.0-3.2); MEAN CORPUSCULAR HEMOGLOBIN 29.3 pg (28-32); MEAN CORPUSCULAR HGB CONC 33.1 g/dL (31-35); MEAN CORPUSCULAR VOLUME 88.6 fL (81-99); MONOCYTES # (AUTO) 0.5 (0.2-0.8); MONOCYTES % 5.3 % (4.4-11.3); NEUTROPHILS # (AUTO) 6.4 (2.1-6.9); NEUTROPHILS % 74.8 % (38.7-80.0); PLATELET COUNT 217 x10e3/uL (140-360); RED CELL DISTRIBUTION WIDTH 14.4 % (11.7-14.4)
[2020-07-02] MEDS: FAMOTIDINE 20 MG TAB PO SCH ×2 (09:18→16:50)
[2020-07-02] MEDS: LACTASE 3,000 UNIT TAB PO SCH (09:18)
[2020-07-02] MEDS: DOCUSATE SODIUM 100 MG CAP PO SCH (09:18)
[2020-07-02] MEDS: ASPIRIN 325 MG TAB EC PO SCH (09:18)
[2020-07-02] MEDS: HEPARIN 25,000 UNIT 25,000 UNIT in DEXTROSE 5% 250ML 250 ML IV SCH (15:06)
[2020-07-02] MEDS: SODIUM CHLORIDE FLUSH 10 ML SYR INJ PRN (15:08)
[2020-07-02] MEDS: LEVALBUTEROL HCL SOLN NEBU 1.25 MG/3 ML NEB INH SCH (18:39)
[2020-07-02] MEDS: SIMVASTATIN 40 MG TAB PO SCH (21:30)
[2020-07-02] MEDS: TAMSULOSIN HCL 0.4 MG CAP PO SCH (21:30)
[2020-07-03] VITALS (12 sets, daily range): BP systolic 83–112; BP diastolic 47–74
[2020-07-03] MEDS: LEVALBUTEROL HCL SOLN NEBU 1.25 MG/3 ML NEB INH SCH ×4 (01:00→18:35)
[2020-07-03] MEDS: AMIODARONE HCL 200 MG TAB PO SCH ×3 (06:59→20:15)
[2020-07-03] MEDS: DOCUSATE SODIUM 100 MG CAP PO SCH (08:33)
[2020-07-03] MEDS: FAMOTIDINE 20 MG TAB PO SCH ×2 (08:33→17:34)
[2020-07-03] MEDS: ASPIRIN 325 MG TAB EC PO SCH (08:33)
[2020-07-03] MEDS: LACTASE 3,000 UNIT TAB PO SCH (08:33)
[2020-07-03] MEDS ORDERED: ZOLPIDEM TARTRATE 5 MG TAB PO ONE (20:00)
[2020-07-03] MEDS: SIMVASTATIN 40 MG TAB PO SCH (20:15)
[2020-07-03] MEDS: TAMSULOSIN HCL 0.4 MG CAP PO SCH (20:15)
[2020-07-04] VITALS (9 sets, daily range): BP systolic 106–119; BP diastolic 49–64
[2020-07-04] MEDS: LEVALBUTEROL HCL SOLN NEBU 1.25 MG/3 ML NEB INH SCH ×4 (00:50→19:25)
[2020-07-04] MEDS: AMIODARONE HCL 200 MG TAB PO SCH ×2 (04:53→15:03)
[2020-07-04] MEDS ORDERED: MIDAZOLAM HCL 2 MG/2 ML VIAL ONE (07:44)
[2020-07-04] MEDS ORDERED: HEPARIN SOD (PORCINE) 1000 UNIT/ML SDV ONE (07:44)
[2020-07-04] MEDS ORDERED: FENTANYL CITRATE/PF 100MCG/2 ML INJ ONE (07:44)
[2020-07-04] MEDS ORDERED: LIDOCAINE HCL 1% LOCAL INJ 20 ML VIAL ONE (08:24)
[2020-07-04] MEDS ORDERED: SODIUM CHLORIDE 0.9% 250ML 250 ML ONE (08:25)
[2020-07-04] MEDS: FAMOTIDINE 20 MG TAB PO SCH ×2 (09:50→16:31)
[2020-07-04] MEDS: LACTASE 3,000 UNIT TAB PO SCH (09:50)
[2020-07-04] MEDS: DOCUSATE SODIUM 100 MG CAP PO SCH (09:50)
[2020-07-04] MEDS: ASPIRIN 325 MG TAB EC PO SCH (09:50)
[2020-07-04] MEDS ORDERED: ONDANSETRON HCL 4 MG ORAL DISINTEGRATING TAB PO PRN (11:00)
[2020-07-04] MEDS: SIMVASTATIN 40 MG TAB PO SCH (21:00)
[2020-07-04] MEDS: TAMSULOSIN HCL 0.4 MG CAP PO SCH (21:00)
[2020-07-04] MEDS: ACETAMINOPHEN 325 MG TAB PO PRN (22:00)
[2020-07-05] VITALS (9 sets, daily range): BP systolic 98–137; BP diastolic 55–76
[2020-07-05] MEDS: LEVALBUTEROL HCL SOLN NEBU 1.25 MG/3 ML NEB INH SCH ×4 (02:20→19:25)
[2020-07-05 04:47] LABS: BASOPHILS % 0.7 % (0.0-1.0); EOSINOPHILS # (AUTO) 0.1 (0.0-0.4); EOSINOPHILS % 1.3 % (0.0-6.0); HEMATOCRIT 24.4 % (38.2-49.6); LYMPHOCYTES # (AUTO) 1.8 (1.0-3.2); LYMPHOCYTES % 30.6 % (18.0-39.1); MEAN CORPUSCULAR HEMOGLOBIN 29.3 pg (28-32); MEAN CORPUSCULAR HGB CONC 32.8 g/dL (31-35); MEAN CORPUSCULAR VOLUME 89.4 fL (81-99); MONOCYTES # (AUTO) 0.5 (0.2-0.8); NEUTROPHILS # (AUTO) 3.5 (2.1-6.9); NEUTROPHILS % 58.6 % (38.7-80.0); PLATELET COUNT 231 x10e3/uL (140-360); RED BLOOD COUNT 2.73 x10e6/uL (4.3-5.7); RED CELL DISTRIBUTION WIDTH 14.6 % (11.7-14.4)
[2020-07-05 05:10] LABS: ANION GAP 14.6 mmol/L (8-16); CALCIUM 7.6 mg/dL (8.4-10.2); CREATININE, SERUM 3.62 mg/dL (0.72-1.25); POTASSIUM 3.6 mmol/L (3.5-5.1)
[2020-07-05] MEDS: DOCUSATE SODIUM 100 MG CAP PO SCH (08:48)
[2020-07-05] MEDS: LACTASE 3,000 UNIT TAB PO SCH (08:48)
[2020-07-05] MEDS: AMIODARONE HCL 200 MG TAB PO SCH (08:48)
[2020-07-05] MEDS: FAMOTIDINE 20 MG TAB PO SCH ×2 (08:48→17:26)
[2020-07-05] MEDS: ASPIRIN 325 MG TAB EC PO SCH (08:48)
[2020-07-05] MEDS: APIXAB 2.5 MG TABLET PO SCH ×2 (09:15→17:26)
[2020-07-05] MEDS: SERTRALINE HCL 50 MG TAB PO SCH (10:16)
[2020-07-05] MEDS: ACETAMINOPHEN 325 MG TAB PO PRN ×2 (10:25→22:37)
[2020-07-05] MEDS: TAMSULOSIN HCL 0.4 MG CAP PO SCH (20:50)
[2020-07-05] MEDS: SIMVASTATIN 40 MG TAB PO SCH (20:50)
[2020-07-06] VITALS (13 sets, daily range): BP systolic 93–135; BP diastolic 47–72
[2020-07-06] MEDS: LEVALBUTEROL HCL SOLN NEBU 1.25 MG/3 ML NEB INH SCH ×4 (01:20→19:00)
[2020-07-06] MEDS: DOCUSATE SODIUM 100 MG CAP PO SCH (09:00)
[2020-07-06] MEDS: SERTRALINE HCL 50 MG TAB PO SCH (13:11)
[2020-07-06] MEDS: LACTASE 3,000 UNIT TAB PO SCH (13:11)
[2020-07-06] MEDS: FAMOTIDINE 20 MG TAB PO SCH ×2 (13:11→19:19)
[2020-07-06] MEDS: APIXAB 2.5 MG TABLET PO SCH ×2 (13:11→19:19)
[2020-07-06] MEDS: AMIODARONE HCL 200 MG TAB PO SCH (13:11)
[2020-07-06] MEDS: ASPIRIN 325 MG TAB EC PO SCH (13:16)
[2020-07-06] MEDS: ACETAMINOPHEN 325 MG TAB PO PRN (21:02)
[2020-07-06] MEDS: SIMVASTATIN 40 MG TAB PO SCH (21:02)
[2020-07-06] MEDS: TAMSULOSIN HCL 0.4 MG CAP PO SCH (21:02)
[2020-07-07] VITALS (11 sets, daily range): BP systolic 104–145; BP diastolic 54–72
[2020-07-07] MEDS: LEVALBUTEROL HCL SOLN NEBU 1.25 MG/3 ML NEB INH SCH ×3 (01:00→12:55)
[2020-07-07] MEDS: DOCUSATE SODIUM 100 MG CAP PO SCH (09:01)
[2020-07-07] MEDS: ASPIRIN 325 MG TAB EC PO SCH (09:01)
[2020-07-07] MEDS: AMIODARONE HCL 200 MG TAB PO SCH (09:01)
[2020-07-07] MEDS: FAMOTIDINE 20 MG TAB PO SCH (09:01)
[2020-07-07] MEDS: LACTASE 3,000 UNIT TAB PO SCH (09:01)
[2020-07-07] MEDS: APIXAB 2.5 MG TABLET PO SCH (09:01)
[2020-07-07] MEDS: SERTRALINE HCL 50 MG TAB PO SCH (09:01)
[2020-07-07] MEDS ORDERED: SIMVASTATIN40 MG PO (12:07)
[2020-07-07] MEDS ORDERED: XOPENEX1.25 MG/3 INH (12:07)
[2020-07-07] MEDS ORDERED: METOPROLOL TART50 MG PO (12:07)
[2020-07-07] MEDS ORDERED: FAMOTIDINE20 MG PO (12:07)
[2020-07-07] MEDS ORDERED: ZOLOFT50 MG PO (12:07)
[2020-07-07] MEDS ORDERED: ELIQUIS2.5 MG PO (12:07)
[2020-07-07] MEDS ORDERED: AMIODARONE HCL200 MG PO (12:07)
[2020-07-07] MEDS ORDERED: FLOMAX0.4 MG PO (12:07)
== END 2020-07-07 13:44 | DRG 871 ==
LOC: ER 03:33 → ERHOLD 05:47 → MED/SURG3 14:45 → IMCU 06-24 14:52 → ICU 06-25 09:38 → IMCU 06-29 21:14
PROVIDERS: ADMIT Internal Medicine; ATTEND Internal Medicine
PROC: 05HY33Z Insertion of Infusion Device into Upper Vein, Percutaneous Approach (ICD-10-PCS; principal; 2020-06-21)
PROC: 5A1D70Z Performance of Urinary Filtration, Intermittent, Less than 6 Hours Per Day (ICD-10-PCS; 2020-06-27)
PROC: 0JH63XZ Insertion of Tunneled Vascular Access Device into Chest Subcutaneous Tissue and Fascia, Percutaneous Approach (ICD-10-PCS; 2020-07-04)
PROC: 06H033Z Insertion of Infusion Device into Inferior Vena Cava, Percutaneous Approach (ICD-10-PCS; 2020-07-04)
DX: A41.9 Sepsis, unspecified organism (principal); J15.9 Unspecified bacterial pneumonia; I63.9 Cerebral infarction, unspecified; N18.6 End stage renal disease; N17.0 Acute kidney failure with tubular necrosis; G81.94 Hemiplegia, unspecified affecting left nondominant side; I12.0 Hypertensive chronic kidney disease with stage 5 chronic kidney disease or end stage renal disease; J44.0 Chronic obstructive pulmonary disease with (acute) lower respiratory infection; Z11.59 Encounter for screening for other viral diseases; I25.10 Atherosclerotic heart disease of native coronary artery without angina pectoris; I25.2 Old myocardial infarction; E87.6 Hypokalemia; I71.9 Aortic aneurysm of unspecified site, without rupture; Z99.2 Dependence on renal dialysis; I48.0 Paroxysmal atrial fibrillation; E83.39 Other disorders of phosphorus metabolism
CPT/HCPCS: 36415; 36556; 36558; 36600; 70450; 71045; 71250; 72125; 72131; 74176; 74470; 76937; 77001; 78306; 80048; 80053; 80202; 81001; 82140; 82150; 82550; 82553; 82575; 82805; 82948; 83010; 83519; 83540; 83605; 83615; 83690; 83735; 83874; 83970; 84100; 84146; 84165; 84166; 84436; 84443; 84466; 84479; 84484; 84550; 85025; 85610; 85651; 85730; 86021; 86039; 86140; 86160; 86200; 86235; 86255; 86431; 86704; 86705; 86706; 86850; 86900; 86920; 87040; 87340; 90962; 93005; 93306; 93970; 94640; 95812; 96361; 96366; 97139; 99152; 99153; 99251; 99284; A9570; C1769; C1892; J0692; J1644; J2001; J2020; J2150; J2250; J2270; J2405; J2543; J3010; J3370; J3480; J7030; J7042; J7050; J7070; P9016; U0002

== ENCOUNTER 2020-07-10 10:02 | Observation (INO) | payer MEDICARE ==
[~2020-07-10] VITALS: Ht 177.8 cm; Wt 81.2 kg
[~2020-07-10 10:02] MED LIST: AMARYL4 MG PO; AMIODARONE HCL200 MG PO; ASPIRIN EC81 MG PO; ASPIRIN ENTERI325 MG PO; BENADRYL25 M1 PO; BUMETANIDE1 MG PO; COREG12.5 MG PO; ELIQUIS2.5 MG PO; FAMOTIDINE20 MG PO; FLOMAX0.4 MG PO; FLUTICASONE P15.8 ML; FUROSEMIDE40 MG PO; LASIX80 MG PO; LISINOPRIL5 MG PO; LOPERAMIDE2 MG PO; METFORMIN HCL500 MG PO; METOPROLOL TART25 MG PO; METOPROLOL TART50 MG PO; NIFEDIPINE ER30 M1 PO; POTASSIUM CHLO20 ME1 PEG; RAYALDEE30 MCG PO; SIMVASTATIN40 MG PO; TIZANIDINE HCL4 MG PO; XOPENEX1.25 MG/3 INH; ZOLOFT50 MG PO
[2020-07-10] MEDS ORDERED: ASPIRIN 81 MG CHEW TAB PO ONE ×2 (10:30→12:45)
--- OUTSIDE RECORDS SUMMARY | 2020-07-10 11:03 | XMS REPORT | Continuity of Care Document ---
Author Author [facility] t Organization [facility] Address [address] [place] [address] Phone Unavailable Care Team Providers Care Communications Specialist Name Role Phone DO BOBBI MURCIA PCP CHELSEY GALDAMEZ Attphys Unavailable BOBBI MURCIA Attphys Unavailable CHELSEY GALDAMEZ Admphys Unavailable Payers Payer Name Policy Type Policy Number Effective Date Expiration Date Fermin leger [employer] Medicare Replacement [id number] 2019 00:00:0 0 [facility] Problems Condition Name Condition Details Condition Category Status Onset Date Resolution Date Last Treatment Date Treating Clinician Comments Source Fever Problem Active [facility] Renal insufficiency Problem Active [facility] Weakness Problem Active [facility] Abdominal pain Problem Active [facility] Allergies, Adverse Reactions, Alerts Allergy Name Allergy Type Status Severity Reaction(s) Onset Date Inacti ve Date Treating Clinician Comments Source Penicillin Allergy to substance Active 2020-06-21 00:00:00 [facility] Penicillins DA Active SV 2015-12-13 00:00:00 [facility] tetracycline DA Active MO 2015-12-13 00:00:00 [facility] TERAMYCIN DA Active IA 2015-12-13 00:00:00 [facility] Social History Social Habit Start Date Stop Date Quantity Comments Source Sex Assigned At 1945 00:00:00 1945 00:00:00 Male [facility] Medications Ordered Medication Name Filled Medication Name Start Date Stop Da te Current Medication? Ordering Clinician Indication Dosage Frequency Signature (SIG) Comments Components Source Aspirin (Aspirin Enteric Coated) 325 Mg TABEC Aspirin (Aspirin Enteric Coated) 325 Mg TABEC Yes 325 Daily [facility] Calcifediol (Rayaldee) 30 Mcg CAP.SA.24H Calcifediol ( Rayaldee) 30 Mcg CAP.SA.24H Yes 1 Bedtime [facility] Diphenhydramine Hcl (Benadryl) 25 Mg CAPSULE Diphenhyd ramine Hcl (Benadryl) 25 Mg CAPSULE Yes 50 Twice A Day as needed for A llergy [facility] Famotidine Famotidine Yes 20 Twice A Day [facility] Fluticasone Propionate Fluticasone Propionate Yes 1 as needed for Allergy [facility] Furosemide (Lasix) 80 Mg TABLET Furosemide (Lasix) 80 Mg TABLET Yes 80 Twice A Day [facility] Loperamide Hcl (Loperamide) 2 Mg TABLET Loperamide Hcl (Trevor ramide) 2 Mg TABLET Yes .5 As Needed as needed for Diarrhe a [facility] Metoprolol Tartrate Metoprolol Tartrate Yes 25 Twice A Day [facility] Nifedipine (Nifedipine Er) 30 Mg TAB.ER.24 Nifedipine (Nifedipine Er) 30 Mg TAB.ER.24 Yes 60 Daily [facility] Simvastatin Simvastatin Yes 40 Bedtime [facility] Tizanidine Hcl Tizanidine Hcl Yes 2 Bedtime [facility] Calcifediol (Rayaldee) 30 Mcg CAP.SA.24H Calcifediol ( Rayaldee) 30 Mcg CAP.SA.24H 2020-06-22 00:00:00 No Bedtime [facility] Furosemide Furosemide 2020-06-22 00:00:00 No 40 Twi ce A Day [facility] Aspirin (Aspirin Ec) 81 Mg TABLET. Aspirin (Aspirin Ec) 81 Mg TABLET. 2020-06-21 00:00:00 No 81 Daily [facility] Bumetanide Bumetanide 2020-06-21 00:00:00 No 1 Twi ce A Day [facility] Carvedilol (Coreg) 12.5 Mg TAB Carvedilol (Coreg) 12.5 Mg TAB 2020-06-21 00:00:00 No 25 Twice A Day [facility] Glimepiride (Amaryl) 4 Mg TABLET Glimepiride (Amaryl) 4 Mg TABLE T 2020-06-21 00:00:00 No 4 Daily [facility] Lisinopril Lisinopril 2020-06-21 00:00:00 No 5 Twi ce A Day [facility] Metformin Hcl Metformin Hcl 2020-06-21 00:00:00 No 500 Twice A Day [facility] Potassium Chloride Potassium Chloride 2020-06-21 00:00:00 No 1 Daily [facility] Vital Signs Vital Name Observation Time Observation Value Comments Source Body Temperature 2020-07-07 12:30:00 98.0 [degF] [facility] BMI (Body Mass Index) 2020-07-02 16:55:00 25.8 kg/m2 [facility] Weight 2020-06-30 06:38:00 179.50 [lb_av] [facility] Procedures Procedure Date / Time Performed Performing Clinician [facility] e Ultrasound guidance for vascular access 2020-06-25 00:00:00 [facility] Computed tomography of cervical spine without contrast 2020-06-07 0 00:00:00 [facility] Computed tomography of lumbar spine without contrast 2020-06-25 00:00:00 [facility] Computed tomography of chest without contrast 2020-06-22 00:00:0 0 [facility] Computed tomography of brain without radiopaque contrast 2020-06 00:00:[address] [facility] [address] of abdomen and pelvis without contrast 2020-06-21 00:00:[address] [facility] [address] of abdomen and pelvis without contrast 2020-04-05 00:00:00 [facility] Encounters Start Date/Time End Date/Time Encounter Type Admission Type Attendi [facility] Care Department Encounter ID Source 2020-04-05 15:38:00 2020-04-05 15:38:00 Registered Clinic 3 BOBBI MURCIA [facility] [id number] [facility] Results Test Description Test Time Test Comments Results Result Comments Source Blood leukocytes automated count (number/volume) 2020-07-05 04:30:00 Test Item White Blood Count (test code = 6690-2) 6.01 4.8-10.8 [facility] count (number/volume)2020-07-05 04:30:00* Test Item Value Reference Range Interpretation Comments Red Blood Count (test code = 789-8) 2.73 4.3-5.7 [facility] measurement (moles/volume)2020-07-05 04:30:00* Test Item Value Reference Range Interpretation Comments Hemoglobin (test code = 48161-4) 8.0 14.0-18.0 [facility] hematocrit (volume fraction)2020-07-05 04:30:00* Test Item Value Reference Range Interpretation Comments Hematocrit (test code = 4544-3) 24.4 38.2-49.6 [facility] erythrocyte mean corpuscular [id number] 04:30:00* Test Item Value Reference Range Interpretation Comments Mean Corpuscular Volume (test code = 787-2) 89.4 81-99 [facility] mean corpuscular hemoglobin (mass per erythrocyte)2020-07-05 04:30:00* Test Item Value Reference Range Interpretation Comments Mean Corpuscular Hemoglobin (test code = 785-6) 29.3 28-32 [facility] erythrocyte mean corpuscular hemoglobin concentration measurement (mass/volume)2020-07-05 04:30:00* Test Item Value Reference Range Interpretation Comments Mean Corpuscular Hemoglobin Concent (test code = 786-4) 32.8 31-35 [facility] HospitalRDW VlgVk-Asb0141-06-30 04:30:00* Test Item Value Reference Range Interpretation Comments Red Cell Distribution Width (test code = 35917-5) 14.6 11.7 -14.4 [facility] platelet count (count/volume)2020-07-05 04:30:00* Test Item Value Reference Range Interpretation Comments Platelet Count (test code = 777-3) 231 140-360 [facility] segmented neutrophil count as percentage of total [id number] 04:30:00* Test Item Value Reference Range Interpretation Comments Neutrophils (%) (Auto) (test code = 01303-7) 58.6 38.7-80.0 [facility] lymphocyte count as percentage ot total wooegsqmwh2252-08-67 04:30:00* Test Item Value Reference Range Interpretation Comments Lymphocytes (%) (Auto) (test code = 736-9) 30.6 18.0-39.1 [facility] monocyte count as percentage of total mlpozcbxfq7826-74-29 04:30:00* Test Item Value Reference Range Interpretation Comments Monocytes (%) (Auto) (test code = 5905-5) 8.0 4.4-11.3 [facility] blood eosinophil count as percentage of total kyvimpoake6457-92-80 04:30:00* Test Item Value Reference Range Interpretation Comments Eosinophils (%) (Auto) (test code = 713-8) 1.3 0.0-6.0 [facility] blood basophil count as percentage of total ruzrabgymr5532-46-12 04:30:00* Test Item Value Reference Range Interpretation Comments Basophils (%) (Auto) (test code = 706-2) 0.7 0.0-1.0 [facility] HospitalFluoroscopic procedure less than one hour phsvtvsp8571-06-23 04:30:00* Test Item Value Reference Range Interpretation Comments IM GRANULOCYTES % (test code = IM GRANULOCYTES %) 0.8 0.0- 1.0 [facility] blood neutrophil count 2020-07-05 04:30:00* Test Item Value Reference Range Interpretation Comments Neutrophils # (Auto) (test code = 751-8) 3.5 2.1-6.9 [facility] lymphocytes count (number/volume) 2020-07-05 04:30:00* Test Item Value Reference Range Interpretation Comments Lymphocytes # (Auto) (test code = 61196-7) 1.8 1.0-3.2 [facility] monocytes automated count (number/volume)2020-07-05 04:30:00* Test Item Value Reference Range Interpretation Comments Monocytes # (Auto) (test code = 742-7) 0.5 0.2-0.8 [facility] HospitalAutom[facility] blood eosinophil count 2020-07-05 04:30:00* Test Item Value Reference Range Interpretation Comments Eosinophils # (Auto) (test code = 711-2) 0.1 0.0-0.4 [facility] HospitalAutom[facility] blood basophil count (count/volume)2020-07-05 04:30:00* Test Item Value Reference Range Interpretation Comments Basophils # (Auto) (test code = 704-7) 0.0 0.0-0.1 [facility] HospitalFluoroscopic procedure less than one hour [id number] 04:30:00* Test Item Value Reference Range Interpretation Comments Absolute Immature Granulocyte (auto (gold t code = Absolute Immature Granulocyte (auto) 0.05 0-0.1 [facility] sodium measurement (moles/volume)2020-07-05 04:30:00* Test Item Value Reference Range Interpretation Comments Sodium Level (test code = 2951-2) 141 136-145 [facility] plasma potassium measurement (moles/volume)2020-07-05 04:30:00* Test Item Value Reference Range Interpretation Comments Potassium Level (test code = 2823-3) 3.6 3.5-5.1 [facility] plasma chloride measurement (moles/volume)2020-07-05 04:30:00* Test Item Value Reference Range Interpretation Comments Chloride Level (test code = 2075-0) 103 98-107 [facility] or plasma carbon dioxide, total measurement (moles/volume)2020-07-05 04:30:00* Test Item Value Reference Range Interpretation Comments Carbon Dioxide Level (test code = 2028-9) 27 22-29 [facility] or plasma anion amc3298-22-70 04:30:00* Test Item Value Reference Range Interpretation Comments Anion Gap (test code = 74174-7) 14.6 8-16 [facility] or plasma urea nitrogen measurement (mass/volume)2020-07-05 04:30:00* Test Item Value Reference Range Interpretation Comments Blood Urea Nitrogen (test code = 3094-0) 22 7-26 [facility] plasma creatinine measurement (mass/volume)2020-07-05 04:30:00* Test Item Value Reference Range Interpretation Comments Creatinine (test code = 2160-0) 3.62 0.72-1.25 [facility] or plasma urea nitrogen/creatinine mass tthhg8929-03-76 04:30:00* Test Item Value Reference Range Interpretation Comments BUN/Creatinine Ratio (test code = 3097-3) 6 6-25 [facility] HospitalEstimated glomerular filtration rate (GFR) tnhohgjnfdyxp9536-48-98 04:30:00* Test Item Value Reference Range Interpretation Comments Estimat Glomerular Filtration Rate (test code = 437326426) 17 >60 Ranges were taken from the National Kidney Disease Education Program and the [facility] literature.Reference ranges:60 or greater: Ryuujl64-08 ( for 3 consecutive months): Chronic kidney disease 15 or less: Kidney failureLegent Orthopedic HospitalGlucose gcitbprjlwd9907-57-69 04:30:00* Test Item Value Reference Range Interpretation Comments Glucose Level (test code = DFI2905) 100 74-118 [facility] or plasma calcium measurement (mass/volume)2020-07-05 04:30:00* Test Item Value Reference Range Interpretation Comments Calcium Level (test code = 44321-4) 7.6 8.4-10.2 [facility] HospitalIR [id number] 09:34:00 [facility] [address] [address] Patient Name: NUVIA HSU MR #: [id number] : 1945 Age/Sex: 74/M Req #: [id number] Adm Physician: CHELSEY GALDAMEZ MD Ordered by: RADHA WALLER, AYESHA WALLER Report #: [id number] Location: [facility] Room/Bed: [place] [address] Procedure: [id number] DX/IR CONSULT Exam Date: Exam Time: REPORT STATUS: Signed Conversion of a nontunneled to tunnel ed dialysis catheter. History: Renal fa ilure. Modality: Fluorosco py. Sedation: Versed 1.5 mg and fentanyl 75 mcg was given intravenously for conscious sedation. Vital signs were monit ored throughout the procedure by a nurse, and remained stable. Physician intra -service time was 20 minutes. Administrative Assistant Receptionist: MD Ramona. Business Insurance Agent: None. Approach: Right internal jugular vein Estimated blood loss: < 5 cc. Specimen: None. Fluoroscopy Time: 0.2 min. Dose (Ka,r): 1.39 mGy. Technique: Informed written consent was obtained. Discussion of risks, benefits, and alternatives were made with the patient. The patient expressed understanding and agreed to proceed. All elements maximal sterile barrier technique was utilized for this procedure, including utilization of sterile scrub solution for skin prep, a large sterile sheet to cover the areas of the patient that were not prepped, and hand hygiene, mask, head covering, and sterile gown for performing radiologist and scrub technologist. The skin was anesthetized with 2% lidocaine. A 0.35 inch diameter guidewire was inserted through the existing nontunneled dialysis catheter into the IVC. A subcutaneous tunnel was created in the right anterior chest wall by blunt dissection. A 19 cm tip to cuff 14.5 Grenadian palindrome catheter was brought through the tunnel. The existing nontunneled hemodialysis catheter was then removed over the guidewire. A peel-away sheath was placed in the right IJ vein and the catheter was advanced through the sheath, with its distal tip terminating in the right atrium. The peel-away sheath was removed. The ports were flushed and aspirated easily following placement. The catheter was sutured to the skin to secure its placement. There is a pursestring suture was placed at the catheter exit site. The small jugular incision site was closed using Dermabond. Vital signs were monitored throughout the procedure by a nurse, and remained stable. The patient tolerated the procedure well and left the department in the same condition. Results: Spot radiograph of the chest demonstrates the new dialysis catheter to lie in the expected position with its tip overlying the superior right atrium. Impression: Successful, uncomplicated conversion of a nontunneled right internal jugular to a tunneled dialysis catheter. Signed by: Dr. Gualberto Greene MD on 9:35 AM Dictated By: GUALBERTO GREENE MD 4 Transcribed By: CONRADO on 07/04/20934 COPY TO: AYESHA GARCIA [facility] [id number] 09:34:00 [place] [address] Patient Name: NUVIA HSU MR #: [id number] : 1945 Age/Sex: 74/M Req #: [id number] Adm Physician: CHELSEY GALDAMEZ MD Ordered by: AYESHA GARCIA MD, MD Report #: [id number] Location: [facility] Room/Bed: [place] [address] Procedure: [id number] FARIDA/MYESHA LOWE CENT DOMINIC PLMT OR REM Exam Date: 07/04/20 Exam Time: 0800 REPORT STATUS: Signed Conve rsion of a nontunneled to tunneled dialysis catheter. History: Renal failure. Modality: Fluoroscopy. Sedat ion: Versed 1.5 mg and fentanyl 75 mcg was given intravenously for conscious s edation. Vital signs were monitored throughout the procedure by a nurse, and remained stable. Physician intra-service time was 20 minutes. Administrative Assistant Receptionist: MD Ramona. Business Insurance Agent: None. Approach: Right internal jugular vein Estimated blood loss: < 5 cc. Specimen: None. Fluoroscopy Time: 0.2 min. Dose (Ka,r): 1.39 mGy. Technique: Informed written consent was obtained. Discussion of risks, benefits, and alternatives were made with the patient. The patient expressed understanding and agreed to proceed. All elements maximal sterile barrier technique was utilized for this procedure, including utilization of sterile scrub solution for skin prep, a large sterile sheet to cover the areas of the patient that were not prepped, and hand hygiene, mask, head covering, and sterile gown for performing radiologist and scrub technologist. The skin w as anesthetized with 2% lidocaine. A 0.35 inch diameter guidewire was inserted through the existing nontunneled dialysis catheter into the IVC. A subcuta neous tunnel was created in the right anterior chest wall by blunt dissection. A 19 cm tip to cuff 14.5 Grenadian palindrome catheter was brought through the tunnel. The existing nontunneled hemodialysis catheter was then removed over t he guidewire. A peel-away sheath was placed in the right IJ vein and the sherwin ter was advanced through the sheath, with its distal tip terminating in the ri ght atrium. The peel-away sheath was removed. The ports were flushed and aspi rated easily following placement. The catheter was sutured to the skin to sec ure its placement. There is a pursestring suture was placed at the catheter ex it site. The small jugular incision site was closed using Dermabond. Vital sig ns were monitored throughout the procedure by a nurse, and remained stable. T he patient tolerated the procedure well and left the department in the same co ndition. Results: Spot radiograph of the chest demonstrates the new dial ysis catheter to lie in the expected position with its tip overlying the super ior right atrium. Impression: Successful, uncomplicated conversion of a nontunneled right internal jugu lar to a tunneled dialysis catheter. Signed by: Dr. Gualberto Greene MD on 9:35 AM Dictated By: GUALBERTO GREENE MD 4 Transcribed By: CONRADO on 07/04/20934 COPY TO: AYESHA GARCIA TUNNELLED CVC INSERT W/O [id number] 09:34:00 [place] [address] Patient Name: NUVIA HSU MR #: [id number] : 1945 Age/Sex: 74/M Req #: [id number] Adm Physician: CHELSEY GALDAMEZ MD Ordered by: AYESHA GARCIA MD, MD Re port #: [id number] Location: [facility] Room/ Bed: [place] [address] Procedure: IR/TUNNELLED CVC INSERT W/O PORT Exam Date: Exam Time: REPORT STATUS: Signed Conversion of a no ntunneled to tunneled dialysis catheter. History: Renal failure. Modality: Fluoroscopy. Sedation: Versed 1 .5 mg and fentanyl 75 mcg was given intravenously for conscious sedation. Vit al signs were monitored throughout the procedure by a nurse, and remained stab le. Physician intra-service time was 20 minutes. Administrative Assistant Receptionist: MD Ramona. Business Insurance Agent: None. Approach: Right internal jugular vein Estimated blood loss: < 5 cc. Specimen: None. Fluoroscopy Time: 0.2 min. Dose (Ka,r): 1.39 mGy. Technique: Informed written consent was obtained. Discussion of risks, benefits, and alternatives were made with the patient. The patient expressed understanding and agreed to proceed. All elements maximal sterile barrier technique was utilized for this procedure, including utilization of sterile scrub solution for skin prep, a large sterile sheet to cover the areas of the patient that were not prepped, and hand hygiene, mask, head covering, and sterile gown for performing radiologist and scrub technologist. The skin was anesthetized with 2% lidocaine. A 0.35 inch diameter guidewire was inserted through the existing nontunneled dialysis catheter into the IVC. A subcutaneous tunnel was created in the right anterior chest wall by blunt dissection. A 19 cm tip to cuff 14.5 Grenadian palindrome catheter was brought through the tunnel. The existing nontunneled hemodialysis catheter was then removed over the guidewire. A peel-away sheath was placed in the right IJ vein and the catheter was advanced through the sheath, with its distal tip terminating in the right atrium. The peel-away sheath was removed. The ports were flushed and aspi rated easily following placement. The catheter was sutured to the skin to sec ure its placement. There is a pursestring suture was placed at the catheter ex it site. The small jugular incision site was closed using Dermabond. Vital sig ns were monitored throughout the procedure by a nurse, and remained stable. T he patient tolerated the procedure well and left the department in the same co ndition. Results: Spot radiograph of the chest demonstrates the new dial ysis catheter to lie in the expected position with its tip overlying the super ior right atrium. Impression: Successful, uncomplicated conversion of a nontunneled right internal jugu lar to a tunneled dialysis catheter. Signed by: Dr. Gualberto Greene MD on 9:35 AM Dictated By: GUALBERTO GREENE MD 4 Transcribed By: CONRADO on 07/04/20934 COPY TO: AYESHA GARCIA Activated partial thromboplastin time (aPTT) in platelet poor plasma by coagulation [id number] 14:25:00* Test Item Value Reference Range Interpretation Comments Activated Partial Thromboplast Time (test code = 64651-2) 47.5 23.8-35.5 [facility] SINGLE (PORTABLE)2020-07-03 08:33:00 [facility] [address] [address] Patient Name: NUVIA HSU MR #: [id number] : 1945 Age/Sex: 74/M Req #: [id number] Adm Physician: CHELSEY GALDAMEZ MD Ordered by: JESÚS SALCEDO MD Report #: [id number] Location: [facility] Room/Bed: [place] [address] Procedure: [id number] DX/CHEST SING LE (PORTABLE) Exam Date: 07/03/20 Exam Time: 0545 REPORT STATUS: Signed EXAMINATION: CHEST SINGLE (PORTABLE) INDICATION: Abdominal pain, fever COMPAR JANICE: Chest radiograph 06/28/2020 FINDINGS: LINES/TUBES:Left IJ ce ntral venous catheter travels superiorly up the right internal jugular vein wh ere it terminates. Right IJ temporary dialysis catheter terminates in the SVC. EKG leads overlie the chest. LUNGS:The lungs are well-inflated. There is l eft basilar opacity silhouetting the left chantal diaphragm. PLEURA:Small le ft pleural effusion. No pneumothorax. MEDIASTINUM:The cardiomediastinal oniel houette appears unchanged in size and shape. Atherosclerotic calcifications of the thoracic aorta. BONES/SOFT TISSUES:No acute osseous injury. ABDOM EN:No free air under the diaphragm. IMPRESSION: Left IJ central venou s catheter remains malpositioned. Increasing left basilar patchy airspace o pacities may represent atelectasis or less likely superimposed aspiration or p neumonia. Small left pleural effusion. Signed by: Sunday Lucero MD on 8:36 AM Dictated By: SUNDAY LUCERO MD 5 Transcribed By: CONRADO on 07/03/20835 COPY TO: JESÚS SALCEDO MD Serum or plasma total bilirubin measurement (mass/volume)2020-07-01 05:30:00* Test Item Value Reference Range Interpretation Comments Total Bilirubin (test code = 1975-2) 0.8 0.2-1.2 [facility] procedure less than one hour [id number] 05:30:00* Test Item Value Reference Range Interpretation Comments Aspartate Amino Transf (AST/SGOT) (test code = Aspartate Amino Transf (AST/SGOT)) 68 5-34 [facility] alanine aminotransferase measurement (enzymatic activity/volume)2020-07-01 05:30:00* Test Item Value Reference Range Interpretation Comments Alanine Aminotransferase (ALT/SGPT) (test code = 1742-6) 29 0-55 [facility]ville[facility] or plasma protein measurement (mass/volume)2020-07-01 05:30:00* Test Item Value Reference Range Interpretation Comments Total Protein (test code = 2885-2) 5.2 6.5-8.1 [facility] or plasma albumin measurement (mass/volume)2020-07-01 05:30:00* Test Item Value Reference Range Interpretation Comments Albumin (test code = 1751-7) 2.4 3.5-5.0 [facility] HospitalPlasma globulin measurement (mass/volume) 2020-07-01 05:30:00* Test Item Value Reference Range Interpretation Comments Globulin (test code = 71394-8) 2.8 2.3-3.5 [facility] or plasma albumin/globulin mass epcwz7877-27-03 05:30:00* Test Item Value Reference Range Interpretation Comments Albumin/Globulin Ratio (test code = 1759-0) 0.9 0.8-2.0 [facility]ville[facility] or plasma alkaline phosphatase measurement (enzymatic activity/volume)2020-07-01 05:30:00* Test Item Value Reference Range Interpretation Comments Alkaline Phosphatase (test code = 6768-6) 101 40-150 [facility] HospitalProthrombin time (PT) in platelet poor plasma by coagulation kyemq8711-57-13 11:40:00* Test Item Value Reference Range Interpretation Comments Prothrombin Time (test code = 5902-2) 16.6 11.9-14.5 [facility] HospitalINR in Platelet poor plasma by Coagulation jlott4926-41-97 11:40:00* Test Item Value Reference Range Interpretation Comments Prothromb Time International Ratio (test code = 6301-6) 1.28 Oral Anticoagulant Therapy INR Values:1. Low Intensity Therapy 1.5 - 2.02 . Moderate Intensity Therapy 2.0 - 3.03. High Intensity Therapy(1) 2.5 - 3. 54. High Intensity Therapy(2) 3.0 - 4.05. Panic Value INR > 5.0 [facility] HospitalBONE and/or JOINT WHOLE VHYM6169-68-87 11:33:00 [place] [address] Patient Name: NUVIA HSU MR #: [id number] : 1945 Age/Sex: 74/M Req #: [id number] [facility] Physician: CHELSEY GALDAMEZ MD Ordered by: BOBBI CAMPOS MD Report #: [id number] Location: ICU Room/Bed: [place] [address] Procedure: [id number] NM/BONE and/or J OINT WHOLE BODY Exam Date: 06/26/20 Exam Time: 0855 REPORT STATUS: Signed This study is a Labeled WBC Study performed on 06/26/2020. It is not a Bone Scan as the CPT code and accession number indicate. Labeled WBC Study Reason fo r exam: 73 M with abdominal pain and fever of unknown origin Comparison: Ch est radiograph 06/26/2020; CT cervical and lumbar spine 06/25/2020; CT abdo/pelv is 06/21/2020 Report: The patient's own white blood cells were labeled with In-111 oxine 0.31 mCi by a commercial radiopharmacy on 06/26/2020. Total body images in the anterior and posterior projections were obtained at 24 hours p ost administration of the labeled white blood cells. Distribution of trac er activity appears physiologic throughout the body. No abnormal focal accumu lation of labeled WBC's is seen. IMPRESSION: No scan evidence of foc al infection/inflammatory process. Signed by: Dr. Ella Romo M.D. on 11:37 AM Dictated By: ELLA ROMO MD 113 Transcribed By: CONRADO on 06/29/20 1137 COPY TO: BOBBI CAMPOS MD Fluoroscopic procedure less than one hour hacijbww5558-66-76 04:30:00* Test Item Value Reference Range Interpretation Comments Differential Total Cells Counted (test code = Differjeffy tial Total Cells Counted) 100 [facility] blood neutrophils/100 leukocytes 2020-06-29 04:30:00* Test Item Value Reference Range Interpretation Comments Neutrophils % (Manual) (test code = 45705-6) 85 40-74 [facility] blood lymphocytes/100 leukocytes 2020-06-29 04:30:00* Test Item Value Reference Range Interpretation Comments Lymphocytes % (Manual) (test code = 737-7) 9 19-48 [facility] blood monocytes/100 leukocytes 2020-06-29 04:30:00* Test Item Value Reference Range Interpretation Comments Monocytes % (Manual) (test code = 744-3) 4 3.4-9.0 [facility] blood eosinophil count as percentage of total xnqhhdtyeb0535-13-45 04:30:00* Test Item Value Reference Range Interpretation Comments Eosinophils % (Manual) (test code = 714-6) 2 0-7 [facility]Blood platelets count by estimate (number/volume)2020-06-29 04:30:00* Test Item Value Reference Range Interpretation Comments Platelet Estimate (test code = 81059-2) ADEQUATE [facility] HospitalPlatelet xtopovlevm8713-86-24 04:30:00* Test Item Value Reference Range Interpretation Comments Platelet Morphology Comment (test code = 12207-1) NORMAL [facility] HospitalBlood hypochromia detection by light fthvfelxad3947-29-15 04:30:00* Test Item Value Reference Range Interpretation Comments Hypochromasia (test code = 728-6) SLIGHT [facility] HospitalRBC prnlvsimia3273-84-69 04:30:00* Test Item Value Reference Range Interpretation Comments Red Cell Morphology Comment (test code = 6742-1) NORMAL [facility] or plasma iron measurement (mass/volume)2020-06-29 04:30:00* Test Item Value Reference Range Interpretation Comments Iron Level (test code = 2498-4) 24 65-175 [facility] or plasma iron binding capacity measurement (mass/volume)2020-06-29 04:30:00* Test Item Value Reference Range Interpretation Comments Total Iron Binding Capacity (test code = 2500-7) 162 261-4 78 [facility] or plasma iron saturation measurement (mass fraction)2020-06-29 04:30:00* Test Item Value Reference Range Interpretation Comments Percent Iron Saturation (test code = 2502-3) 15 15-50 [facility] or plasma transferrin measurement (mass/volume)2020-06-29 04:30:00* Test Item Value Reference Range Interpretation Comments Transferrin (test code = 3034-6) 116 174-364 [facility] HospitalCapillary blood glucose measurement by glucometer (mass/volume)2020-06-27 23:47:00* Test Item Value Reference Range Interpretation Comments Bedside Glucose (test code = 25683-6) 132 70-120 Meter ID: [id number] Orthopedic HospitalAmmonia Ser-mCnc 2020-06-27 19:50:00* Test Item Value Reference Range Interpretation Comments Ammonia (test code = 33025-8) 83 31-123 [facility] HospitalBlood sohtlfi5166-82-89 09:14:00* Test Item Value Reference Range Interpretation Comments Blood Culture (test code = 81111066) NO GROWTH AFTER 5 DAYS, FINAL REPORT [facility] HospitalPhosphorus aryavyozcau5396-30-37 05:50:00 * Test Item Value Reference Range Interpretation Comments Phosphorus Level (test code = LIV0093) 2.8 2.3-4.7 [facility] or plasma magnesium measurement (mass/volume)2020-06-27 05:50:00* Test Item Value Reference Range Interpretation Comments Magnesium Level (test code = 26388-5) 1.8 1.3-2.1 [facility] hepatitis B virus surface antibody assay by radioimmunoassay (units/volume)2020-06-26 17:20:00* Test Item Value Reference Range Interpretation Comments Hepatitis B Surface Antibody, Quant (test code = 5194-6) <3.1 Immunity>9.9 Status of Immunity Anti-HBs Level Inconsistent with Immunity 0.0 - 9.9Consistent with Immunity >9.9[facility]rum or plasma hepatitis B virus core antibody detection by abmupwrvmjs0823-93-92 17:20:00* Test Item Value Reference Range Interpretation Comments Hepatitis B Core Total Antibody (test code = 53692-4) Positive Negative [facility] or plasma hepatitis B virus surface antigen detection by nqmslsmhppc2219-33-84 17:20:00* Test Item Value Reference Range Interpretation Comments Hepatitis B Surface Antigen (test code = 5196-1) Negative Negat william [facility] or plasma hepatitis B virus core IgM antibody detection by rgnxwpiloiy1102-63-23 17:20:00* Test Item Value Reference Range Interpretation Comments Hepatitis B Core IgM Antibody (test code = 81849-0) Negative Ne gative Performed at: [facility] Lab[address] [id number] Director: Darrell Tabares MD, Phone: [phone] [facility] SINGLE (PORTABLE)2020-06-26 08:42:00 [facility] [address] [place] [address] Patient Name: NUVIA HSU MR #: [id number] : 1945 Age/Sex: 74/M Req #: [id number] Adm Physician: CHELSEY GALDAMEZ MD Ordered by: BOBBI CAMPOS MD Report #: [id number] Location: ICU Room/Bed: ICU [facility] Procedure: [id number] DX/CHEST SINGLE (PORTABLE) Exam Date: 06/26/20 Exam Time: 0645 REPORT STATUS: Signed EXAMINATION: C HEST SINGLE (PORTABLE) INDICATION: Shortness of breath COMPARISON: Chest radiograph 06/25/2020 FINDINGS: LINES/TUBES:Right IJ tempor valdemar dialysis catheter terminates in the SVC. Left IJ temporary central venous catheter courses up the right internal jugular vein. LUNGS:The lungs are mo derately inflated. There is perihilar fullness and indistinctness of the pulmo nary vasculature. PLEURA:Trace left pleural effusion. No pneumothorax. MEDIASTINUM:The cardiomediastinal silhouette appears unchanged in size and sh ape. Atherosclerotic calcifications of the thoracic aorta. BONES/SOFT TISSU ES:No acute osseous injury. ABDOMEN:No free air under the diaphragm. IMPRESSION: Left IJ central venous catheter courses superiorly in the right internal jugular vein. Recommend repositioning. Mild pulmonary interstit ial edema. Trace left pleural effusion. No focal pneumonia. Signed by: Sunday Lucero MD on 06/26/2020 8:45 AM Dictated By: SUNDAY LUCERO MD Electron ically Signed By: SUNDAY LUCERO MD on 06/26/20 0845 Transcribed By: CONRADO on 0845 COPY TO: BOBBI CAMPOS MD Manual blood band neutrophils form/100 nlzuadpsjg2323-40-96 04:30:00* Test Item Value Reference Range Interpretation Comments Band Neutrophils % (test code = 764-1) 9 [facility] ZZ9250-27-60 17:53:00 [facility] [address] [place] [address] Patient Name: NUVIA HSU MR #: [id number] : 1945 Age/Sex: 74/M Req #: [id number] Adm Physician: CHELSEY GALDAMEZ MD Ordered by: DAPHNIE KLINE MD Report #: [id number] Location: ICU Room/Bed: ICU [facility] Procedure: CT/CT LUMBAR SP INE WO Exam Date: 06/25/20 Exam Time: 1719 REPORT STATUS: Signed History: Low back p ain Comparison studies: None Technique: Axial images were obtained fro m mid T11 through the sacrum. Coronal and sagittal images reconstructed from t he axial data. Dose modulation, iterative reconstruction, and/or weight based adjustment of the mA/kV was utilized to reduce the radiation dose to as low a s reasonably achievable. Intravenous contrast: None Findings: Number of non-rib bearing vertebral bodies: 5 Alignment: Normal lordosis. No scoliosis. Soft tissues: Incidental atherosclerotic calcifications in a mil dly dilated aorta and in the iliac arteries Paraspinal muscles: Fatty infilt rated from L4 through S1 Vertebrae: Bone are demineralized. Age indet erminate compression fractures along the superior endplate of at T12 and L1 re sult in 50 and less than 30% height loss respectively. The fractures do not ex tend into the posterior margin. No retropulsed fragment displaced into the can al. Otherwise, the vertebrae are normal in height from L2 through S1. No infec tion or neoplasm. Degenerative changes: Mildly degenerated discs from T11 through L2, moderate at L2-3, not significant from L3 to S1. Mild spinal ca nal stenosis at L4-5 due to a disc bulge. No significant foraminal stenosis. N o disc herniations Sacroiliac joints: Minimally degenerated. IMPRES TERRY: 1. No acute abnormalities. 2. Bones are demineralized. Age ind eterminate compression fractures at T12 and L1 result in 50% and 30% height lo ss respectively. No retropulsed fragment displaced into the spinal canal. 3. Moderately degenerated disc at L2-3 but otherwise, no significant degener ative changes. 4. 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 Signed by: Dr. Jeimy Lim M.D. on 06/25/2020 6:00 PM Dictated By: RICKIE DUVAL MD, MD 18 00 Transcribed By: CONRADO on 06/25/20 1800 COPY TO: DAPHNIE KLINE MD CT CERVICAL SPINE [id number] 17:44:00 [place] [address] Patient Name: NUVIA HSU MR #: [id number] : 1945 Age/Sex: 74/M Req #: [id number] Adm Physician: CHELSEY GALDAMEZ MD Ordered by: DAPHNIE KLINE MD Report #: [id number] Location: ICU Room/Bed: ICU [facility] Procedure: [id number] CT/CT CERVICAL SPINE WO Exam Date: 06/25/20 Exam Time: 1719 REPORT STATUS: Signed History: Neck miah n Comparison studies: None Technique: Axial images were obtained throu gh the cervical region. Coronal and sagittal images reconstructed from the axi al data. Dose modulation, iterative reconstruction, and/or weight based adjust ment of the mA/kV was utilized to reduce the radiation dose to as low as reas onably achievable. Intravenous contrast: None Findings: Soft t issues: Incidental atherosclerotic calcifications at the carotid bulbs and at the origins of the subclavian arteries. Alignment: Normal lordosis. No s coliosis. Cervicomedullary junction: No abnormalities. The foramen magnum is p atent. Vertebrae: Bones mildly demineralized. No fractures, infection or neoplasm. Degenerative changes: * Moderate at the atlantoaxial artic ulation. * Mildly degenerated discs from C3 to T1. * Facet arthrosis on th e left from C3 through C7, bilaterally at C7-T1 * Mild foraminal stenosis on the left at C3-4, C5-6 due to facet and uncovertebral arthrosis. * No signi ficant spinal canal stenosis in spite of subtle disc osteophyte complexes. IMPRESSION: 1. No acute abnormalities. 2. Bones are mildly jay neralized but no fractures. 3. Mild degenerative changes, mostly facet art hrosis, but no significant spinal canal or foraminal stenosis. Signed by: Dr. Rickie Lim M.D. on 06/25/2020 5:53 PM Dictated By: RICKIE POLK MD, MD 52 COPY TO: DAPHNIE KLINE MD Serum or plasma lactate dehydrogenase measurement (enzymatic activity/volume)2020-06-25 13:10:00* Test Item Value Reference Range Interpretation Comments Lactate Dehydrogenase (test code = 012102882) 497 125-220 [facility] or plasma haptoglobin measurement (mass/volume)2020-06-25 13:10:00* Test Item Value Reference Range Interpretation Comments Haptoglobin (test code = 4542-7) 97 27-031 Performed at: [facility] [address] [place], [place] [id number] Senior Test Analyst: Benita Acosta MD, Phone: [phone] Health [facility]villeerum or plasma complement C3 measurement (mass/volume)2020-06-25 13:10:00* Test Item Value Reference Range Interpretation Comments Complement C3 (test code = 4485-9) 105 82-167 [facility] or plasma complement C4 measurement (mass/volume)2020-06-25 13:10:00* Test Item Value Reference Range Interpretation Comments Complement C4 (test code = 4498-2) 29 14-44 Performed at: [facility] [place] [address] [id number] Director: Darrell Tabares MD, Phone: [phone] [facility] SINGLE (PORT[facility])2020-06-25 12:52:00 [place] [address] Patient Name: NUVIA HSU MR #: [id number] : 1945 Age/Sex: 74/M Req #: [id number] Adm Physician: CHELSEY GALDAMEZ MD Ordered by: GONZALES BOYD MD Report #: [id number] Location: ICU Room/Bed: [place] [address] Procedure: [id number] DX/CHEST SINGLE ( PORTABLE) Exam Date: 06/25/20 Exam Time: 1225 REPORT STATUS: Signed EXAMINATION: CH EST SINGLE (PORTABLE) INDICATION: S/P LINE PLACEMENT COMPARISON: Multiple prior chest x-ray examinations most recent performed earlier same day FINDINGS: AP view TUBES and LINES: There is a new right IJ central venous catheter with distal tip in SVC.The left IJ central venous cath eter with distal tip toward the right internal jugular vein in suboptimal posi tion, unchanged. LUNGS/PLEURA: Lungs are well inflated. There are bilater al patchy opacities could represent multifocal pneumonia or pulmonary edema, u nchanged. There is persistent left basilar opacity which could be due to effus ion and or atelectasis. HEART AND MEDIASTINUM: The cardiomediastinal oniel houette is unremarkable. BONES AND SOFT TISSUES: No acute osseous lesi on. Soft tissues are unremarkable. UPPER ABDOMEN: No free air under the diaphragm. IMPRESSION: New right IJ central venous catheter with distal tip in SVC, in optimal position. Unchanged left IJ central venous catheter with distal tip toward the right internal jugular vein in suboptimal location. Signed by: Jeferson Kraus MD on 06/25/2020 12:54 PM Dic tated By: JEFERSON KRAUS MD 1254 COPY TO: Fermin BOYD MD CHEST SINGLE (PORTABLE)2020-06-25 09:53:00 [place] [address] Patient Name: NUVIA SHU MR #: [id number] : 1945 Age/Sex: 74/M Req #: [id number] Adm Physician: CHELSEY GALDAMEZ MD Ordered by: CHELSEY GALDAMEZ MD Report #: [id number] Location: ICU Room/Bed: ICU 189 Procedure: [id number] DX/CHEST SIN GLE (PORTABLE) Exam Date: 06/25/20 Exam Time: 1931 REPORT STATUS: Signed EXAMINATION : CHEST SINGLE (PORTABLE) INDICATION: s/p line COMPARISON: None FINDINGS: AP view TUBES and LINES: There is a new left IJ reji tral venous catheter with distal tip toward the right internal jugular vein. LUNGS/PLEURA: Lungs are well inflated. There are bilateral patchy opacitie s could represent multifocal pneumonia or pulmonary edema.. There is new left basilar opacity which could be due to effusion and or atelectasis. HEART AND MEDIASTINUM: The cardiomediastinal silhouette is unremarkable. BON ES AND SOFT TISSUES: No acute osseous lesion. Soft tissues are unremarkable. UPPER ABDOMEN: No free air under the diaphragm. IMPRESSION: New left IJ central venous catheter with distal tip toward the right internal jugular vein in suboptimal location. Bilateral patchy opacities could repr esent multifocal pneumonia or pulmonary edema New left basilar opacity co uld be due to effusion and or atelectasis Signed by: Jeferson Kraus MD on 06/25/2020 9:57 AM Dictated By: JEFERSON KRAUS MD 6 Transcribed By: CONRADO on 956 COPY TO: CHELSEY GALDAMEZ MD CHEST SINGLE (PORTABLE) 2020-06-25 08:01:00 [place] [address] Patient Name: NUVIA HSU MR #: [id number] : 1945 Age/Sex: 74/M Req #: [id number] Adm Physician: CHELSEY GALDAMEZ MD Ordered by: CHELSEY GALDAMEZ MD Report #: [id number] Location: [facility] Room/Bed: [place] [address] Procedure: [id number] DX/CHEST SIN GLE (PORTABLE) Exam Date: 06/25/20 Exam Time: 0600 REPORT STATUS: Signed EXAMINATION : CHEST SINGLE (PORTABLE) INDICATION: CHF COMPARISON: No ne FINDINGS: AP view TUBES and LINES: None. . LUNGS/PLEURA: There are bilateral interstitial opacities likely representing pulmonary edema.. There is left basilar opacity which could be due to atelec tasis or consolidation/pneumonia. HEART AND MEDIASTINUM: Cardiac size is m ildly enlarged. BONES AND SOFT TISSUES: No acute osseous lesion. Soft tissues are unremarkable. UPPER ABDOMEN: No free air under the diaphragm . IMPRESSION: Pulmonary edema. Left basilar opacity could be due to atelectasis or consolidation/pneumonia. Signed by: Jeferson oleary MD on 06/25/2020 8:03 AM Dictated By: JEFERSON KRAUS MD Elect ronically Signed By: JEFERSON KRAUS MD on 06/25/20 08 Transcribed By: ZACH ISAAC on 06/25/20 08 COPY TO: CHELSEY GALDAMEZ MD Arterial blood pH tdtbsungnri5522-49-84 04:00:00* Test Item Value Reference Range Interpretation Comments Arterial Blood pH (test code = 2744-1) 7.39 7.35-7.45 [facility] HospitalpCO2 QoeI2049-27-19 04:00:00* Test Item Value Reference Range Interpretation Comments Arterial Blood Partial Pressure CO2 (test code = 2018-8) 35 35-45 [facility] HospitalpCO2 SrgR6531-43-36 04:00:00* Test Item Value Reference Range Interpretation Comments Arterial Blood Partial Pressure O2 (test code = 2018-8) 76 80-105 [facility] HospitalArterial blood bicarbonate measurement (moles/volume)2020-06-25 04:00:00* Test Item Value Reference Range Interpretation Comments Arterial Blood HCO3 (test code = 1960-4) 22 22-26 [facility] HospitalArterial cord blood carbon dioxide, total measurement by calculation (moles/volume)2020-06-25 04:00:00* Test Item Value Reference Range Interpretation Comments Arterial Blood Total CO2 (test code = 00549-2) 23 [facility] HospitalArterial blood base excess by calculation 2020-06-25 04:00:00* Test Item Value Reference Range Interpretation Comments Arterial Blood Base Excess (test code = 1925-7) -3.0 -2-3 [facility] HospitalArterial blood oxygen saturation xrpuwijzdnl8826-85-19 04:00:00* Test Item Value Reference Range Interpretation Comments Arterial Blood Oxygen Saturation (test code = 2708-6) 95.0 95-98 [facility] HospitalFluoroscopic procedure less than one hour vwbjaukm6151-24-35 04:00:00* Test Item Value Reference Range Interpretation Comments FiO2 (test code = FiO2) 36 4 L NASAL CANNULALegent Orthopedic HospitalErythrocyte sedimentation rate by Westergren dbeywu9747-57-99 14:30:00* Test Item Value Reference Range Interpretation Comments Erythrocyte Sedimentation Rate (test code = 4537-7) 38 0- 13 [facility]villeerum or plasma cyclic citrullinated peptide IgA+IgG antibody assay by immunoassay (units/volume)2020-06-24 14:30:00 * Test Item Value Reference Range Interpretation Comments Cyclic Citrullinated Peptide IgG Ab (test code = 61333-1) 4 0-19 Negative <20 Weak positive 20 - 39 Moderate positive 40 - 59 Strong positive >59Performed at: [facility] Lab[address] [id number] Director: Darrell Tabares MD, Phone: [phone] at: [facility] Lab[address] [id number] Director: Benita Acosta MD, Phone: [phone] Health [facility] Stephenvilleerum or plasma rheumatoid factor measurement (units/volume)2020-06-24 14:30:00* Test Item Value Reference Range Interpretation Comments Rheumatoid Factor (test code = 82155-4) 15.4 0.0-13.9 [facility]villeerum nuclear antibody titer by xoayskvhlhwxhqkmms4935-39-22 14:30:00* Test Item Value Reference Range Interpretation Comments Anti-Nuclear Antibody Screen (test code = 5048-4) Negative . Negative <1:80 Borderline 1:80 Positive > 1:80Performed at: [facility] LabCo[address] [id number] 3Lab Director: Darrell Tabares MD, Phone: [phone] Health Harris [facility] Stephenvilleerum or plasma C reactive protein measurement (mass/volume)2020-06-24 14:30:00* Test Item Value Reference Range Interpretation Comments C-Reactive Protein (test code = 1988-5) 222 0-10 Performed at: [facility] [id number] Director: Darrell Tabares MD, Phone: [phone] Health Harris [facility] Stephenvilleerum proteinase 3 antibody assay by immunoassay (units/volume)2020-06-24 06:20:00* Test Item Value Reference Range Interpretation Comments Anti-Proteinase 3 (c-ANCA) (test code = 89511-8) <3.5 0.0-3 .5 Performed at: [facility] Lab[address] [id number] Senior Test Analyst: Benita Acosta MD, Phone: [phone] Health Harris [facility] Hospital Stephenvilleerum myeloperoxidase antibody assay by immunoassay (units/volume) 2020-06-24 06:20:00* Test Item Value Reference Range Interpretation Comments Myeloperoxidase Antibody (test code = 12202-1) <9.0 0.0-9.0 [facility]ville[facility] or plasma uric acid measurement (mass/volume)2020-06-23 15:59:00* Test Item Value Reference Range Interpretation Comments Uric Acid (test code = 3084-1) 5.6 4.8-8.0 [facility] HospitalFree thyroxine acuil0789-39-89 15:59:00* Test Item Value Reference Range Interpretation Comments Free Thyroxine Index (test code = 37547-6) 1.6435 1.4-3.8 [facility]villeerum or plasma thyroxine (T4) measurement (mass/volume)2020-06-23 15:59:00* Test Item Value Reference Range Interpretation Comments Thyroxine (T4) (test code = 3026-2) 4.97 4.5-10.9 [facility] plasma triiodothyronine resin uptake (T3RU)2020-06-23 15:59:00* Test Item Value Reference Range Interpretation Comments Triiodothyronine (T3) Uptake (test code = 3050-2) 33.07 22.5 -37.0 [facility]ville[facility] or plasma thyrotropin measurement by detection limit <= 0.005 miu/l (units/volume)2020-06-23 15:59:00* Test Item Value Reference Range Interpretation Comments Thyroid Stimulating Hormone (TSH) (test code = 69162-8) 1.978 0.350-4.940 [facility]ville[facility] or plasma prolactin measurement (mass/volume)2020-06-23 15:59:00* Test Item Value Reference Range Interpretation Comments Prolactin (test code = 2842-3) 6.2 4.0-15.2 Performed at: [employer] [id number] Director: Darrell Tabares MD, Phone: [phone] Health [facility] Stephenvillejogren's antibodies (SSA)2020-06-23 15:59:00* Test Item Value Reference Range Interpretation Comments SS-A/Ro Antibody (test code = [id number]) <0.2 0.0-0.9 [facility]ville[facility]ogren's antibodies (SSB)2020-06-23 15:59:00* Test Item Value Reference Range Interpretation Comments SS-B/La Antibody (test code = EJH5992) <0.2 0.0-0.9 Performed at: [employer] [employer] [id number] Director: Darrell Tabares MD, Phone: [phone] Health Harris [facility] Hospital Stephenvilleerum striated muscle antibody titer by sqmatjzqaqnjwiemmx6172-04-42 15:59:00* Test Item Value Reference Range Interpretation Comments Anti-Striated Muscle Antibody (test code = 5372-8) Negative Neg :<1:40 Performed at: [facility] [id number] Senior Test Analyst: Benita Acosta MD, Phone: [phone] Health [facility] Stephenvilleerum acetylcholine receptor antibody assay (moles/volume) 2020-06-23 15:59:00* Test Item Value Reference Range Interpretation Comments Acetylcholine Receptor Binding Ab (test code = 03735-8) <0.03 0.00-0.24 Negative: 0.00 - 0.24 Borderline: 0.25 - 0.40 Positive: > 0.40[facility]ville[facility]um acetylcholine receptor blocking antibody/total acetylcholine antibody azllb5920-37-42 15:59:00* Test Item Value Reference Range Interpretation Comments Acetylcholine Receptor Blocking Ab (test code = 57189-1) 17 0-25 Negative: 0 - 25 Borderline: 26 - 30 Positive: >30[facility]ville[facility]um acetylcholine receptor modulation antibody/total acetylcholine antibody rsukf3388-43-84 15:59:00* Test Item Value Reference Range Interpretation Comments Acetylcholine Recept Modulating Ab (test code = 33576-8) <12 0-20 Negative: <21 Equivocal: 21 - 25 Positive: >25 The assay is linear between values of 12 and 64. Those <12 and >64 are reported as such. No single value for ACR-modulating antibody should be used as a sole basis for diagnosis or response to therapy.[facility]ville[facility] or plasma myoglobin measurement (mass/volume)2020-06-23 15:59:00* Test Item Value Reference Range Interpretation Comments Myoglobin (test code = 2639-3) 961 28-72 Performed at: - [facility] [address] [id number] Director: Darrell Tabares MD, Phone: [phone] Health Harris [facility] Stephenvilleerum perinuclear neutrophil cytoplasmic antibody titer by enspclofwserandzpj6914-12-08 09:39:00* Test Item Value Reference Range Interpretation Comments p-ANCA Titer (test code = 60397-4) <1:20 Neg:<1:20 The presence of positive fluorescence exhibiting P-ANCA orC-ANCA patterns alone is not specific for the diagnosis ofWegener's Granulomatosis (WG) or microscopic polyangiitis.Decisions about treatment should not be based solely onANCA IFA re sults. The International ANCA Group Consensusrecommends follow up testing of po sitive sera with both VT-3 and MPO-ANCA enzyme immunoassays. As many as 5% serum samples are positive only by EIA. Ref. AM J Clin Bdqfxe4375;111:507-513.[facility]opedic HospitalCytoplasmic antineutrophil cytoplasmic antibody (c-ANCA) usvvt1154-83-24 09:39:00* Test Item Value Reference Range Interpretation Comments c-ANCA Titer (test code = 50298-4) <1:20 Neg:<1:20 [facility] atypical perinuclear neutrophil cytoplasmic antibody titer by holraqqarvuxcjcnbt2332-11-84 09:39:00* Test Item Value Reference Range Interpretation Comments Atypical p-ANCA (test code = 13885-4) <1:20 Neg:<1:20 The atypical pANCA pattern has been observed in asignificant percentage of patie nts with ulcerative colitis,primary sclerosing cholangitis and autoimmune hepati tis.Performed at: - [place] [address]Lab Director: Benita Acosta MD, Phone: [phone] Orthopedic HospitalCT CHEST [id number] 15:05:00 [facility] [address] [place] [address] Patient Name: NUVIA HSU MR #: [id number] : 1945 Age/Sex: 74/M Req #: [id number] Adm Physician: CHELSEY GALDAMEZ MD Ordered by: CHELSEY GALDAMEZ MD Report #: [id number] Location: MED/SURG3 Room/Bed: [facility] Procedure: CT/CT CHEST WO Exam Date: 06/22/20 Exam Time: 1200 REPORT STATUS: Signed EXAM: CT Chest WITHOUT intravenous contrast 06/22/2020 12:00 PM INDICATION: Fever, altered mental sta tus COMPARISON: Chest radiograph 06/21/2020 TECHNIQUE: Chest was scanned ut ilizing a multidetector helical scanner from the lung apex through the level o f the adrenal glands without administration of IV contrast. Coronal and sagitt al reformations were obtained. Routine protocol was performed. IV CONTRAS T: None RADIATION DOSE: Total DLP: 510 mGy*cm. Dose modulation, iterative re construction, and/or weight based adjustment of the mA/kV was utilized to redu ce the radiation dose to as low as reasonably achievable. COMPLICATIONS: None FINDINGS: LINES/ TUBES: None. LUNGS AND AIRWAYS: The central ai rways are patent. Moderate bilateral upper lobe predominant centrilobular emp hysema. 2.2 cm area of medial right upper lobe groundglass opacities/consolida tion with adjacent subpleural cystic changes. No additional areas of consolida tion are no pulmonary edema. PLEURA: The pleural spaces are clear. HEA RT AND MEDIASTINUM: The thyroid gland is normal. No mediastinal, hilar or axi llary lymphadenopathy. The heart is normal in size.. Trace pericardial effusi on. Atherosclerotic calcifications involve the aorta, coronary arteries, and proximal great vessels. UPPER ABDOMEN: No acute findings in the upper abdom en. BONES: T12 and L1 degenerative changes with prominent superior endplate Schmorl's nodes. No definite acute osseous injury. No suspicious lytic or b lastic lesions. SOFT TISSUES: Unremarkable. IMPRESSION: 2.2 cm area of medial right upper lobe groundglass/consolidative opacity with adjacent martinez bpleural cystic changes. Findings are likely infectious/inflammatory. Recommen d follow-up chest CT in 3-6 months to assess for stability/resolution. Ba ckground of moderate centrilobular emphysema. Signed by: Sunday Lucero MD on 06/22/2020 3:11 PM Dictated By: SUNDAY LUCERO MD 1511 Transcribed By: CONRADO on 06/22/20 1511 COPY TO: CHELSEY GALDAMEZ MD CT BRAIN [id number] 13:38:00 [place] [address] Patient Name: NUVIA HSU MR #: [id number] : 1945 Age/Sex: 74/M Req #: [id number] [facility] Physician: CHELSEY GALDAMEZ MD Ordered by: CHELSEY GALDAMEZ MD Report #: [id number] Location: [place] [address] Room/Bed: 285-1 Procedure: [id number] CT/CT BRAIN WO Exam Date: 06/22/20 Exam Time: 1200 REPORT STATUS: Signed Examination: CT head wi thout contrast Clinical Indication: Fever. Altered mental status. Technique: Transaxial noncontrast images from the skull base through the vertex were obt ained. Sagittal and coronal reformatted images were done. Dose modulation, ite rative reconstruction, and/or weight based adjustment of the mA/kV was utilize d to reduce the radiation dose to as low as reasonably achievable. Comparis on: None. Findings: Scalp: No abnormalities. Bones: Intact. No fract ures. No blastic or lytic lesions. Brain sulci: Generalized volume loss f or age. Ventricles: Ex vacuo dilatation. No hydrocephalus. Extra-axial space: No abnormalities. Parenchyma: There are subtle patchy areas of low-attenuation within subcortical and periventricular white matter, nonspeci fic, but could represent microvascular ischemic disease. A well-demarcated c ortical based area of hypoattenuation is identified in the right parieto-occip ital region, concerning for external border zone infarct at the [employer] territ ory. A cavity of encephalomalacia in the right putamen from prior infarct/vasc ular insult. No masses or hemorrhage. Suprasellar region: No abnormalit ies. Craniocervical junction: The foramen magnum is patent. No Chiari one m alformation. Incidental findings: Atherosclerotic calcification of the c avernous and supraclinoid internal carotid and V4 segments of the bilateral v ertebral arteries. Impression: 1. No acute intracranial hemorrhage. 2. 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 3. Chronic microvascular ischemic change. 4. Prior infarct/vascular insult of the right putamen. 5. Generalized volume loss for age. Sig rosy by: Dr. Eulalio Joshi M.D. on 06/22/2020 1:42 PM Dictated By: DAVID GARCIA MD 1342 COPY TO: CHELSEY WARREN MD Random serum or plasma vancomycin measurement (mass/volume)2020-06-22 11:04:00* Test Item Value Reference Range Interpretation Comments Random Vancomycin Level (test code = 15387-9) 9.0 [facility] HospitalFluoroscopic procedure less than one hour mercaatk0626-94-16 07:19:00* Test Item Value Reference Range Interpretation Comments Albumin (PEP) (test code = Albumin (PEP)) 3.2 2.9-4.4 [facility] or plasma alpha 1 globulin measurement by electrophoresis (mass/volume)2020-06-22 07:19:00* Test Item Value Reference Range Interpretation Comments Gsgwu-5-Susboptpb (test code = 2865-4) 0.4 0.0-0.4 [facility] or plasma alpha 2 globulin measurement by electrophoresis (mass/volume)2020-06-22 07:19:00* Test Item Value Reference Range Interpretation Comments Mqcxr-7-Jvvkqwdiy (test code = 2868-8) 0.8 0.4-1.0 [facility] or plasma beta globulin measurement by electrophoresis (mass/volume)2020-06-22 07:19:00* Test Item Value Reference Range Interpretation Comments Beta Gamma Globulin (test code = 2871-2) 1.1 0.7-1.3 [facility] or plasma gamma globulin measurement by electrophoresis (mass/volume)2020-06-22 07:19:00* Test Item Value Reference Range Interpretation Comments Gamma Globulins (test code = 2874-6) 1.1 0.4-1.8 [facility] or plasma protein measurement (mass/volume)2020-06-22 07:19:00* Test Item Value Reference Range Interpretation Comments Total Protein (PEP) (test code = 2885-2) 6.6 6.0-8.5 [facility] globulin measurement by calculation (mass/volume)2020-06-22 07:19:00* Test Item Value Reference Range Interpretation Comments Globulin (test code = 08825-2) 3.4 2.2-3.9 [facility] immunoglobulin kappa light chains measurement (mass/volume)2020-06-22 07:19:00* Test Item Value Reference Range Interpretation Comments [place] Light Chain Analysis (test code = 40709-2) 58.4 3.3-1 9.4 [facility]ville[facility] or plasma immunoglobulin free lambda light chains measurement (mass/volume)2020-06-22 07:19:00* Test Item Value Reference Range Interpretation Comments Lambda Light Chain Analysis (test code = 57101-2) 35.4 5.7- 26.3 [facility]ville[facility] immunoglobulin kappa light chains/immunoglobulin lambda light chains mass xntxp0253-97-75 07:19:00* Test Item Value Reference Range Interpretation Comments Totl [place]/Lambda Light Chain Ratio (test code = 80605-5) 1.65 0.26-1.65 Performed at: - [facility] [id number] Director: Darrell Tabares MD, Phone: [phone] at: DA - [facility] [address] [place] [id number] Director: TIM Bolanos MD, Phone: [phone] Health Harris [facility] Hospital Stephenvilleerum or plasma protein monoclonal measurement by electrophoresis (mass/volume)2020-06-22 07:19:00* Test Item Value Reference Range Interpretation Comments Protein Electrophoresis M-Aman (test code = 70533-4) Not Observ ed Not Observed [facility]villeer[facility] or plasma albumin/globulin mass befur7995-29-88 07:19:00* Test Item Value Reference Range Interpretation Comments Albumin/Globulin Ratio (test code = 1759-0) 0.9 0.7-1.7 [facility] HospitalFluoroscopic procedure less than one hour ygcbiger7431-57-61 07:19:00* Test Item Value Reference Range Interpretation Comments Protein Electrophoresis Note (test code = Protein Electropho resis Note) Comment . Protein electrophoresis scan will follow via computer,mail, or radial drill operator for plastic delivery. [facility]ville[facility] or plasma intact pararthyroid hormone measurement (mass/volume)2020-06-22 07:19:00* Test Item Value Reference Range Interpretation Comments Parathyroid Hormone (test code = 2731-8) 33 15-65 [facility]ville[facility] or plasma calcium measurement (mass/volume)2020-06-22 07:19:00* Test Item Value Reference Range Interpretation Comments Calcium (Send out) (test code = 05507-6) 8.8 8.6-10.2 [facility] HospitalFluoroscopic procedure less than one hour kudicvhj5188-84-11 07:19:00* Test Item Value Reference Range Interpretation Comments Parathyroid Hormone Interpretation (test code = Parathyroid Hormone Interpretation) Comment . Interpretation Intact PTH Calcium (pg/mL) (mg/dL)Normal 15 - 65 8.6 - 10.2Pr imary Hyperparathyroidism >65 >10.2Secondary Hyperparathyroidism >65 <10.2Non-Parathyroid Hypercalcemia <65 >10.2Hypoparathyroidism <15 < 8.6Non- Parathyroid Hypocalcemia 15 - 65 < 8.6Performed at: - [facility] [address] [id number] Director: Darrell Tabares MD, Phone: [phone] at: - [facility] [address] [id number] Director: Benita Acosta MD, Phone: [phone] Orthopedic HospitalCHEST SINGLE (PORTABLE)2020-06-21 06:10:00 [place] [address] Patient Name: NUVIA HSU MR #: [id number] : 1945 Age/Sex: 74/M Req #: [id number] Adm Physician: CHELSEY GALDAMEZ MD Ordered by: PHAN EUCEDA MD Report #: [id number] Location: [facility] Room/Bed: [place] [address] Procedure: [id number] DX/CHES T SINGLE (PORTABLE) Exam Date: 06/21/20 Exam Time: 0 425 REPORT STATUS: Signed EXAMIN ATION: CHEST SINGLE (PORTABLE) INDICATION: fever COMPARISON: Non e FINDINGS: The heart is nonenlarged. Pulmonary vessels are n ondistended. No consolidation. No pleural effusion. No pneumothorax. IMPRESSION: No acute thoracic radiographic abnormality. Signed by: Karen Palacio MD on 06/21/2020 6:11 AM Dictated By: KAREN PALACIO MD El ectronically Signed By: KAREN PALACIO MD on 06/21/20610 Transcribed By: JOSSELYN ZEPEDA on 06/21/20610 COPY TO: PHAN EUCEDA MD CT ABDOMEN/PELVIS [id number] 04:57:00 [place] [address] Patient Name: NUVIA HSU MR #: [id number] : 1945 Age/Sex: 74/M Req #: [id number] Adm Physician: CHELSEY GALDAMEZ MD Ordered by: PHAN EUCEDA MD Report #: [id number] Location: [facility] Room/Bed: [address] Procedure: [id number] CT/CT A BDOMEN/PELVIS WO Exam Date: 06/21/20 Exam Time: 0425 REPORT STATUS: Signed EXAM: CT Abdomen and Pelvis WITHOUT contrast INDICATION: Y RLQ PAIN, FEVE R Y COMPARISON: None. TECHNIQUE: Abdomen and pelvis were scanned [email or web address] ng a multidetector helical scanner from the lung base to the pubic symphysis w ithout administration of IV contrast. Absence of intravenous contrast decrease s sensitivity for detection of focal lesions and vascular pathology. Coronal a nd sagittal reformations were obtained. Routine protocol was performed. IV CONTRAST: None ORAL CONTRAST: None COMPLICATIONS: N one RADIATION DOSE: Total DLP: 405.36 mGy*cm Estimated effect william dose: (DLP x 0.015 x size factor) mSv CTDIvol has been reviewed. It i s below the limits set by the Radiation Protocol Committee (RPC). Dose modulation, iterative reconstruction, and/or weight based adjustment of the mA /kV was utilized to reduce the radiation dose to as low as reasonably achievab le. FINDINGS: Limited evaluation of the solid organs secondary to non contrast technique. LOWER THORAX: Unremarkable HEPATOBILIARY: No sig nificant abnormality. GALLBLADDER: There are cholecystectomy clips. SPLEEN: No splenomegaly. PANCREAS: No focal masses or ductal dilatation . ADRENALS: No adrenal nodules KIDNEYS/URETERS: No hydronephros is. No cystic or solid mass lesions. No stones. Minimal perinephric fluid whi ch can be seen in the renal insufficiency. GI TRACT: No abnormal distention , wall thickening, or evidence of bowel obstruction. Mild colonic diverticulo sis of the descending and sigmoid colon without evidence of acute diverticulit is. Appendix is normal. PELVIC ORGANS/BLADDER: Unremarkable. LYMPH NO BERNABE: No lymphadenopathy. VESSELS: Aneurysmal dilatation of the infrarenal a bdominal aorta measuring up to 4.3 cm, similar to prior. Aneurysmal dilatation of the right common iliac artery measuring up to 2.9 cm, similar to prior. An eurysmal dilatation of left common iliac artery measuring up to 2.7 cm, simila r to prior. PERITONEUM / RETROPERITONEUM: No free air or fluid. No mesen teric fat stranding. BONES: Unchanged compression deformity of the T12 ve rtebral body. Degenerative changes of the lumbar spine. SOFT TISSUES: Unr emarkable. IMPRESSION: 1. No acute abdominopelvic process. Normal appendix. 2. 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 Alejandra nued surveillance advised. Signed by: Karen Palacio MD on 06/21/2020 5:14 AM Dictated By: KAREN PALACIO MD 3 Transcribed By: CONRADO on 06/21/20513 COPY TO: PHAN EUCEDA MD Urine color ferkqsxuaieqq7475-72-45 03:45:00* Test Item Value Reference Range Interpretation Comments Urine Color (test code = 5778-6) YELLOW YELLOW DARK YELLOWLegent Orthopedic HospitalUrine zjxvllx3397-46-66 03:45:00* Test Item Value Reference Range Interpretation Comments Urine Clarity (test code = 66014-1) CLEAR CLEAR [facility] Stephenvillepecific gravity of Urine by Test strip 2020-06-21 03:45:00* Test Item Value Reference Range Interpretation Comments Urine Specific [place] (test code = 5811-5) 1.020 1.010-1.02 5 [facility] HospitalUrine pH measurement by automated test zuguy6538-10-32 03:45:00* Test Item Value Reference Range Interpretation Comments Urine pH (test code = 06242-5) 6.5 5-7 [facility] HospitalUrine leukocyte esterase detection by ekxqdqii8734-73-70 03:45:00* Test Item Value Reference Range Interpretation Comments Urine Leukocyte Esterase (test code = 5799-2) NEGATIVE NEGATIVE [facility] HospitalUrine nitrite rozwqnazm2536-43-26 03:45:00* Test Item Value Reference Range Interpretation Comments Urine Nitrite (test code = 86285-9) NEGATIVE NEGATIVE [facility] HospitalUrine protein measurement by test strip (mass/volume)2020-06-21 03:45:00* Test Item Value Reference Range Interpretation Comments Urine Protein (test code = 5804-0) 2+ NEGATIVE [facility] HospitalUrine glucose skqmmfmof0596-98-75 03:45:00* Test Item Value Reference Range Interpretation Comments Urine Glucose (UA) (test code = 2349-9) 1+ NEGATIVE [facility] HospitalUrine ketones detection by automated test lmras9121-78-70 03:45:00* Test Item Value Reference Range Interpretation Comments Urine Ketones (test code = 87346-8) 2+ NEGATIVE [facility] HospitalUrine urobilinogen measurement by test strip (mass/volume)2020-06-21 03:45:00* Test Item Value Reference Range Interpretation Comments Urine Urobilinogen (test code = 76448-8) 1 0.2-1 [facility] HospitalUrine total bilirubin measurement (mass/volume)2020-06-21 03:45:00* Test Item Value Reference Range Interpretation Comments Urine Bilirubin (test code = 1978-6) NEGATIVE NEGATIVE [facility] HospitalUrine erythrocytes qbkfmhttv3745-67-25 03:45:00* Test Item Value Reference Range Interpretation Comments Urine Blood (test code = 56064-9) LARGE NEGATIVE [facility] HospitalAutomated urine sediment leukocyte count by microscopy (number/high power field)2020-06-21 03:45:00* Test Item Value Reference Range Interpretation Comments Urine WBC (test code = 5821-4) 0-5 0-5 [facility] HospitalErythrocytes detection in urine sediment by light omrqtkbkdz5099-76-27 03:45:00* Test Item Value Reference Range Interpretation Comments Urine RBC (test code = 25169-7) 11-20 0-5 [facility] HospitalBacteria detection in urine sediment by light iynakpsfwm8130-02-76 03:45:00* Test Item Value Reference Range Interpretation Comments Urine Bacteria (test code = 63081-8) FEW NONE [facility] HospitalEpithelial cells detection in urine sediment by light bbvztunyzk2404-67-58 03:45:00* Test Item Value Reference Range Interpretation Comments Urine Epithelial Cells (test code = 06617-9) MODERATE NONE [facility] HospitalFluoroscopic procedure less than one hour bykgsfhr7853-82-48 03:45:00* Test Item Value Reference Range Interpretation Comments Lactic Acid Level (test code = Lactic Acid Level) 1.9 0.5- 2.0 [facility]ville[facility] or plasma creatine kinase measurement (enzymatic activity/volume)2020-06-21 03:45:00* Test Item Value Reference Range Interpretation Comments Creatine Kinase (test code = 2157-6) 1960 30-200 [facility]villeerum or plasma creatine kinase MB measurement (mass/volume)2020-06-21 03:45:00* Test Item Value Reference Range Interpretation Comments Creatine Kinase MB (test code = 65451-9) 2.20 0-5.0 [facility] HospitalTroponin I measurement by highly sensitive enzyme ocghlvhtxfl9275-47-32 03:45:00* Test Item Value Reference Range Interpretation Comments Troponin I (test code = 90086-9) 0.119 0-0.300 [facility]ville[facility] or plasma amylase measurement (enzymatic activity/volume)2020-06-21 03:45:00* Test Item Value Reference Range Interpretation Comments Amylase Level (test code = 1798-8) 40 25-125 [facility]villeerum or plasma lipase measurement (enzymatic activity/volume)2020-06-21 03:45:00* Test Item Value Reference Range Interpretation Comments Lipase (test code = 3040-3) 13 8-78 [facility] HospitalUrine protein measurement (mass/volume) 2020-06-21 03:45:00* Test Item Value Reference Range Interpretation Comments Urine Protein (test code = 2888-6) 71.8 Not Estab. [facility]24 hour urine albumin/total protein ratio by sjjimcjsvsomiwt7923-81-55 03:45:00* Test Item Value Reference Range Interpretation Comments Urine Albumin (test code = 29557-6) 21.1 . [facility]24 hour urine alpha 1 globulin/total protein by shusgtjreimoexf6550-51-63 03:45:00* Test Item Value Reference Range Interpretation Comments Urine Unoar-1-Dcvmmvky (test code = 34412-9) 7.4 . [facility]24 hour urine alpha 2 globulin/total protein by nasyjurllchkcth4214-28-12 03:45:00* Test Item Value Reference Range Interpretation Comments Urine Ufsep-7-Qjqpuhvxl (test code = 56070-1) 24.5 . [facility]24 hour urine beta globulin/total protein ratio by ounfnanajingjru4463-06-25 03:45:00* Test Item Value Reference Range Interpretation Comments Urine Beta Globulin (test code = 30516-2) 29.6 . [facility]24 hour urine gamma globulin/total protein ratio by [id number] 03:45:00* Test Item Value Reference Range Interpretation Comments Urine Gamma Globulin (test code = 32239-2) 17.4 . [facility]/total protein by [id number] 03:45:00* Test Item Value Reference Range Interpretation Comments Urine Random PEP M-Aman % (test code = 72233-5) 3.4 Not O bserved [facility]Flu[facility] procedure less than one hour [id number] 03:45:00* Test Item Value Reference Range Interpretation Comments Protein Electrophoresis Note (test code = Protein Electropho resis Note) Comment . Protein electrophoresis scan will follow via computer,mail, or radial drill operator for plastic delivery. Performed at: - [facility] [id number] Director: Darrell Tabares MD, Phone: [phone] at: - [facility] [address] [id number] Director: TIM Bolanos MD, Phone: [phone] HospitalFluoroscopic procedure less than one hour [id number] 03:45:00* Test Item Value Reference Range Interpretation Comments Coronavirus (PCR) (test code = Coronavirus (PCR)) NOT DETECTED NOTD ETECTED SARS-COV2/RT-PCR CEPHEIDResults are for the detection of SARS-COV-2 RNA. The TATE S-COV-2 RNA is generally detectable in nasopharyngeal swab specimens during the acute phase of infection. Positive results are indicitive of active infection wi th SARS-COV-2; clinical correlation with patient history and other diagnostic in formation is necessary to determine patient infection status. Positive results d o not rule out bacterial infection or co-infection with other viruses. The agent detected may not be the definite cause of the disease.The limit of detection fo r this assay is 250 copies/mLThe SARS-CoV-2 test is a rapid, real-time RT-PCR te st intended for the qualitative detection of nucleic acid from SARS-CoV-2 in kana opharyngeal swab specimen collected from individuals suspected of COVID-19 by [facility] provider. This test has not been Food and Drug Administration (FD A) cleared or approved and has been authorized by FDA under an Emergency Use Aut horization (EUA). This EUA will be effective until the declaration that circumst ances exist justifying the authorization of the emergency use of in vitro diagno stic test for detection and or diagnosis of COVID-19 is terminated under section 564(b) of the Act, or the the EUA is revoked under 564(g) of the ACT.[facility]CT [facility]/PELVIS [id number] 16:52:00 [place] [address] Patient Name: NUVIA HSU MR #: [id number] : 1945 Age/Sex: 74/M Req #: [id number] Adm Physician: Ordered by: BOBBI MURCIA DO Report #: [id number] Location: CARD Room/Bed: Procedure: [id number] CT/CT ABDOMEN/P DIANE WO Exam Date: 04/05/20 Exam Time: 1600 REPORT STATUS: Signed EXAM: CT Abdomen and Pelvis WITHOUT intravenous contrast INDICATION: Abdominal aortic aneu rysm COMPARISON: None. TECHNIQUE: Abdomen and pelvis were scanned util izing a multidetector helical scanner from the lung base to the pubic symphysi s without administration of IV contrast. Coronal and sagittal reformations wer e obtained. IV CONTRAST: None ORAL CONTRAST: Water COMPLICATIONS: None RADIATION DOSE: Total DLP: 695 mGy*cm Dose mod ulation, iterative reconstruction, and/or weight based adjustment of the mA/kV was utilized to reduce the radiation dose to as low as reasonably achievable. FINDINGS: LOWER THORAX: Normal. HEPATOBILIARY: No focal liver lesi on. Status post cholecystectomy. SPLEEN: No splenomegaly. PANCREAS: No focal masses or ductal dilatation. ADRENALS: No adrenal nodules. KIDNEYS /URETERS: No hydronephrosis, stones, or solid mass lesions. PELVIC ORGANS/BLAD BRAIN: Unremarkable. PERITONEUM / RETROPERITONEUM: No free air or fluid. LY MPH NODES: No lymphadenopathy. VESSELS: Moderate atherosclerotic calcification s of the abdominal aorta and major branches. Infrarenal abdominal aortic aneur ysm measures up to 4.3 x 4.0 cm at its widest point. Both common iliac arterie s are also aneurysmal, measuring up to 2.8 cm on the right and 2.8 cm on the l eft. GI TRACT: Diverticulosis without CT evidence of diverticulitis. No abn ormal bowel thickening. No bowel obstruction. Normal appendix. BONES AND SOFT TISSUES: No acute osseous injury. No suspicious lytic or blastic lesions. Prominent degenerative changes of the visualized spine with a prominent Schmo rl's node and loss of vertebral body height at L1 and T12. 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 Recommend follow up with [facility] in 12 months for continued surveillance. Signed by: Sunday Lucero MD on 0 4:58 PM Dictated By: SUNDAY LUCERO MD 57 Transcribed By: CONRADO on 04/05/201657 COPY TO: BOBBI MURCIA DO - CT ABDOMEN W/O [id number] 13:16:00 Name: NUVIA HSU [facility] : 1945 Age/S: 73 / M [address] Unit #: [id number] Loc: [place], [place] [address] Phys: Alysha Rivero DO Acct: [id number] Di s Date: Status: REG CLI PHONE #: Exam Date: 03/11/2019 1237 FAX #: Reason: ABDOMINAL AORTIC ANEURYSM EXAMS: CPT CODE: [id number] CT ABDOMEN W/ O CONT 92806 HISTORY: Abdominal aortic aneurysm. COMPARISON: CT scan from November 06, 2016 and December 13, 2015. CT of abdomen: Stone protocol. Automated exposure control. The lung bases are clear. Scarring. Hepatic parenchym a is unremarkable on this noncontrast exam. Patient is post cholecystectom y. Unremarkable spleen. The stomach distended incompletely however it is normal in appearance. Mildly thickened wall of the duodenum. Correl ate for duodenitis. No inflammatory change noted. Noncontras t pancreas and adrenals are normal. Kidneys are free from hydroure teronephrosis. No calyceal stones. Renal vascular calcifications. Moderate cortical atrophy of the right kidney. No pathologic adenopa thy. Fusiform aneurysmal dilatation of the distal abdominal aorta just pro ximal to the aortic bifurcation measuring 4.2 cm in width and that is unch anged. Aneurysmal dilatation as well of both common iliac arteries which a lso appears unchanged at 3 cm on the right and 2.8 cm on the left. No bowel obstruction or colitis or diverticulitis. Constipation. Mi ldly thickened wall of the jejunal loops without inflammation. This could represent from underdistention or mild enteritis. Correlate with white hannah l count. Appendix is normal. No free fluid or free air. Subcutaneo us tissues and the musculature demonstrated normal appearance with small f at-containing ventral hernia at the level of the umbilicus. No lytic or bl astic lesions are noted within the bony skeleton. DJD. Loss of height of s uperior endplate of T12 vertebral body noted again. IMPRES TERRY: Stable chest from distal abdominal aortic aneurysm proxi mal to the aortic bifurcation measuring 4.2 cm demonstrating no change. 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 PAGE 1 Signed Report (CONTINUED) Name: NUVIA HSU [facility]AHIDA AEL [facility] : 1945 Age/S: 73 / M [address] [facility] Unit #: [id number] Loc: [place] [address] Phys: Kareem Rivero DO Acct: [id number] Dis Date: Stat us: REG CLI PHONE #: [phone] Exam Date: 03/11/2019 1233 FAX #: [phone] Reason: ABDOMINAL AORTIC ANEURYSM EXAMS: CPT CODE: [id number] CT ABDOMEN W/O CONT 38583 <Continued> Normal appendix without bowel obstruction or colitis or diverticulitis. Mildly thickened duodenal wall and the jejunal wall which could represent enteritis. No inflammatory changes. Correlate with white cell count. No free fluid or free air. at 1316 Reported and signed by: Robbin Paulson M.D. CC: Kareem Rivero Technologist:Jessica VelásquezRT(R),CT; Maggie CTDI: DLP: Trnscb Date/Time: 03/11/2019 (2979) HeraclioTH4 Orig Print D/T: S: 03/11/2019 (6067) PAGE 2 Signed Report
--- NOTE | 2020-07-10 11:07 | Diagnostic Imaging Report ---
EXAMINATION: CHEST SINGLE (PORTABLE) INDICATION: Chest pain. COMPARISON: Chest radiograph 07/03/2020. FINDINGS: LINES/TUBES: Interval removal of left IJ central venous catheter and right IJ non tunneled hemodialysis catheter. Interval placement of a right IJ tunneled hemodialysis catheter with catheter tip in the SVC. LUNGS/PLEURA: The lungs are well-inflated. Interval decrease in small left pleural effusion and left basilar patchy opacity. Interval resolution of mild pulmonary interstitial edema. Central vascular congestion. MEDIASTINUM: The cardiomediastinal silhouette appears unchanged in size and shape. Atherosclerotic calcifications of the thoracic aorta. BONES/SOFT TISSUES: No acute osseous abnormality. ABDOMEN: No free air under the diaphragm. IMPRESSION: Interval decrease in small left pleural effusion with decreased left basilar patchy opacity, which may represent atelectasis or infection. Interval resolution of mild pulmonary interstitial edema. Signed by: Dr. Valdemar Giles MD on 07/10/2020 11:04 AM
[2020-07-10 11:36] LABS: BASOPHILS # (AUTO) 0.1 (0.0-0.1); BASOPHILS % 1.3 % (0.0-1.0); EOSINOPHILS # (AUTO) 0.3 (0.0-0.4); EOSINOPHILS % 3.5 % (0.0-6.0); HEMATOCRIT 28.6 % (38.2-49.6); HEMOGLOBIN 9.1 g/dL (14.0-18.0); LYMPHOCYTES # (AUTO) 3.2 (1.0-3.2); LYMPHOCYTES % 45.4 % (18.0-39.1); MEAN CORPUSCULAR HGB CONC 31.8 g/dL (31-35); MEAN CORPUSCULAR VOLUME 91.1 fL (81-99); MONOCYTES # (AUTO) 0.7 (0.2-0.8); MONOCYTES % 9.4 % (4.4-11.3); NEUTROPHILS # (AUTO) 2.9 (2.1-6.9); NEUTROPHILS % 40.1 % (38.7-80.0); PLATELET COUNT 289 x10e3/uL (140-360); RED BLOOD COUNT 3.14 x10e6/uL (4.3-5.7); RED CELL DISTRIBUTION WIDTH 14.7 % (11.7-14.4)
[2020-07-10 11:49] LABS: INR 1.07; PROTHROMBIN TIME 14.4 seconds (11.9-14.5)
[2020-07-10 11:50] LABS: PARTIAL THROMBOPLASTIN TIME 27.4 seconds (23.8-35.5)
[2020-07-10 12:02] LABS: ALBUMIN 2.4 g/dL (3.5-5.0); ALBUMIN/GLOBULIN RATIO 0.6 (0.8-2.0); ANION GAP 11.6 mmol/L (8-16); CREATININE, SERUM 3.84 mg/dL (0.72-1.25); POTASSIUM 3.6 mmol/L (3.5-5.1)
[2020-07-10 12:10] LABS: CREATINE KINASE MB 2.3 ng/mL (0-5.0)
--- NOTE | 2020-07-10 12:36 | Emergency Department Note ---
History of Present Illnes History of Present Illness Chief Complaint: General Medicine Complaints History of Present Illness This is a 74 year old male Chief Complaint Comment 74 y/o male presents to ED with c/o clogged dialysis cath to R subclavian. Pt last had dialysis of last week. Missed Friday. Pt ALSO HAD CHEST PAIN . Historian: Patient, Senior Application Software Engineer/EMS Arrival Mode: [facility] CORPORATE DEVELOPMENT ANALYST: See EMS Report Onset (how long ago): day(s) (2) Location: CHEST Quality: DULL Radiation: Denies non-radiation, Denies back, Denies neck, Denies extremity, Denies abdomen, Denies periumbilical, Denies flank, Denies proximal, Denies distal, Denies other Severity: mild Onset quality: gradual Duration (how long): day(s) (2) Timing of current episode: intermittent Progression: waxing and waning Chronicity: new Context: Denies recent illness, Denies recent surgery, Denies recent immobilization, Denies recent travel, Denies trauma/injury, Denies new medications, Denies hx of DVT/PE, Denies non-compliance w/ medications, Denies other Relieving factors: none Exacerbating factors: none Associated symptoms: Denies denies other symptoms, Denies confusion, Denies chest pain, Denies cough, Denies diaphoresis, Denies fever/chills, Denies headaches, Denies loss of appetite, Denies malaise, Denies nausea/vomiting, Denies rash, Denies seizure, Denies shortness of breath, Denies syncope, Denies weakness, Denies other Treatments prior to arrival: none Past Medical/Family History Physician Review I have reviewed the patient's past medical and family history. Any updates have been documented here. Past Medical History Recent Fever: No Clinical Suspicion of Infectio: No New/Unexplained Change in Ment: No Past Medical History: Hypertension, CHF, SC, CVA, CAD, Chronic Kidney Disease Other Medical History: ckd stage 3 Past Surgical History: Cholecysctectomy Other Surgery: heart catheterization Social History Smoking Cessation: Former smoker Counseling Performed: Yes Alcohol Use: None Any Illegal Drug Use: No Other Any Pre-Existing Lines (PICC,: No Review of Systems Review of Systems Constitutional: Reports no symptoms EENTM: Reports no symptoms Cardiovascular: Reports as per HPI Respiratory: Reports no symptoms Gastrointestinal: Reports no symptoms Genitourinary: Reports no symptoms Musculoskeletal: Reports no symptoms Integumentary: Reports no symptoms Neurological: Reports no symptoms Psychological: Reports no symptoms Endocrine: Reports no symptoms Hematological/Lymphatic: Reports no symptoms Physical Exam Related Data Allergies: Coded Allergies: Penicillins (Verified Allergy, Unknown, 06/21/20) Triage Vital Signs Vital Signs Date Time Temp Pulse Resp B/P (MAP) Pulse Ox O2 Delivery O2 Flow Rate FiO2 07/10/20 10:19 98.5 58 11 136/47 96 Room Air Vital signs reviewed: Yes Physical Exam CONSTITUTIONAL Constitutional: Present well-developed, Present well-nourished HENT HENT: Present normocephalic, Present atraumatic, Present oropharynx clear/ moist, Present nose normal HENT L/R: Present left ext ear normal, Present right ext ear normal EYES Eyes: Reports PERRL, Reports conjunctivae normal NECK Neck: Present ROM normal; Absent supple, Absent thyromegaly, Absent tracheal deviation, Absent stridor, Absent JVD, Absent cervical adenopathy, Absent carotid bruit, Absent other PULMONARY Pulmonary: Present effort normal, Present breath sounds normal CARDIOVASCULAR Cardiovascular: Present regular rhythm, Present heart sounds normal, Present capillary refill normal, Present normal rate; Absent irregular rhythm, Absent intact distal pulses, Absent tachycardia, Absent bradycardia, Absent murmur, Absent gallop, Absent friction rub, Absent palpable pulses, Absent strong pulses, Absent weak pulses, Absent LLE edema, Absent RLE edema, Absent other GASTROINTESTINAL Abdominal: Present soft, Present nontender, Present bowel sounds normal GENITOURINARY Genitourinary: Present exam deferred SKIN Skin: Present warm, Present dry; Absent erythema, Absent pale, Absent rash, Absent jaundiced, Absent bruising, Absent lesion, Absent other MUSCULOSKELETAL Musculoskeletal: Present ROM normal; Absent edema, Absent deformity, Absent tenderness, Absent swelling, Absent ot her NEUROLOGICAL Neurological: Present alert, Present oriented x 3, Present no gross motor or sensory deficits PSYCHOLOGICAL Psychological: Present mood/affect normal, Present judgement normal Results Laboratory Result Diagram: 07/10/20 1122 07/10/20 1122 Laboratory Laboratory Tests Test 07/10/20 11:22 White Blood Count 7.10 x10e3/uL (4.8-10.8) Red Blood Count 3.14 x10e6/uL (4.3-5.7) Hemoglobin 9.1 g/dL (14.0-18.0) Hematocrit 28.6 % (38.2-49.6) Mean Corpuscular Volume 91.1 fL (81-99) Mean Corpuscular Hemoglobin 29.0 pg (28-32) Mean Corpuscular Hemoglobin Concent 31.8 g/dL (31-35) Red Cell Distribution Width 14.7 % (11.7-14.4) Platelet Count 289 x10e3/uL (140-360) Neutrophils (%) (Auto) 40.1 % (38.7-80.0) Lymphocytes (%) (Auto) 45.4 % (18.0-39.1) Monocytes (%) (Auto) 9.4 % (4.4-11.3) Eosinophils (%) (Auto) 3.5 % (0.0-6.0) Basophils (%) (Auto) 1.3 % (0.0-1.0) Neutrophils # (Auto) 2.9 (2.1-6.9) Lymphocytes # (Auto) 3.2 (1.0-3.2) Monocytes # (Auto) 0.7 (0.2-0.8) Eosinophils # (Auto) 0.3 (0.0-0.4) Basophils # (Auto) 0.1 (0.0-0.1) Absolute Immature Granulocyte (auto 0.02 x10e3/uL (0-0.1) Prothrombin Time 14.4 seconds (11.9-14.5) Prothromb Time International Ratio 1.07 Activated Partial Thromboplast Time 27.4 seconds (23.8-35.5) Sodium Level 139 mmol/L (136-145) Potassium Level 3.6 mmol/L (3.5-5.1) Chloride Level 106 mmol/L (98-107) Carbon Dioxide Level 25 mmol/L (22-29) Anion Gap 11.6 mmol/L (8-16) Blood Urea Nitrogen 39 mg/dL (7-26) Creatinine 3.84 mg/dL (0.72-1.25) Estimat Glomerular Filtration Rate 15 ML/MIN (60-) BUN/Creatinine Ratio 10 (6-25) Glucose Level 109 mg/dL (74-118) Calcium Level 8.0 mg/dL (8.4-10.2) Total Bilirubin 0.5 mg/dL (0.2-1.2) Aspartate Amino Transf (AST/SGOT) 40 IU/L (5-34) Alanine Aminotransferase (ALT/SGPT) 31 IU/L (0-55) Alkaline Phosphatase 74 IU/L (40-150) Creatine Kinase 30 IU/L (30-200) Creatine Kinase MB 2.30 ng/mL (0-5.0) Troponin I 0.023 ng/mL (0-0.300) Total Protein 6.5 g/dL (6.5-8.1) Albumin 2.4 g/dL (3.5-5.0) Globulin 4.1 g/dL (2.3-3.5) Albumin/Globulin Ratio 0.6 (0.8-2.0) Lab results reviewed: Yes Imaging Imaging results reviewed: Yes Procedures 12 Lead ECG Interpretation ECG Interpretation : ECG: ECG 1 Wood Miller: Interpreted by ED physician Date: Jul 10, 2020 Time: 10:43 Rhythm: sinus bradycardia Rate: normal BPM: 50 Conduction: right bundle branch block ST segments normal: Yes T waves normal: Yes Assessment & Plan Medical Decision Making MDM CHEST PAIN CRF Reassessment Reassessment time: 12:34 Reassessment BETTER Assessment & Plan Final Impression: (1) Chest pain (2) CRF (chronic renal failure) (3) Dialysis catheter clot or failure Depart Disposition: ADMITTED Last Vital Signs Date Time Temp Pulse Resp B/P (MAP) Pulse Ox O2 Delivery O2 Flow Rate FiO2 07/10/20 11:28 98.0 100 18 150/81 99 Room Air Home Meds Active Scripts Famotidine (FAMOTIDINE) 20 Mg Tab, 20 MG PO BID for 60 Days, TAB Prov:BOBBI CAMPOS MD 07/07/20 Levalbuterol Hcl (XOPENEX) 1.25 Mg/3 Ml Vial.neb, 1.25 MG INH BID for 90 Days, #30 CAP Prov:BOBBI CAMPOS MD 07/07/20 Metoprolol Tartrate (METOPROLOL TARTRATE) 50 Mg Tablet, 50 MG PO BID for 30 Days, #60 Prov:BOBBI CAMPOS MD 07/07/20 Tamsulosin Hcl* (FLOMAX*) 0.4 Mg Cap, 0.4 MG PO HS for 30 Days, #30 CAP Prov:BOBBI CAMPOS MD 07/07/20 Simvastatin (SIMVASTATIN) 40 Mg Tablet, 40 MG PO HS for 30 Days, #30 Prov:BOBBI CAMPOS MD 07/07/20 Sertraline Hcl (ZOLOFT) 50 Mg Tablet, 50 MG PO DAILY for 30 Days, #30 Prov:BOBBI CAMPOS MD 07/07/20 Apixaban (Eliquis) 2.5 Mg Tablet, 2.5 MG PO BID for 30 Days, #30 Prov:BOBBI CAMPOS MD 07/07/20 Amiodarone Hcl (AMIODARONE HCL) 200 Mg Tablet, 400 MG PO DAILY for 30 Days, #30 Prov:BOBBI CAMPOS MD 07/07/20 Reported Medications Fluticasone Propionate (Fluticasone Propionate) 15.8 Ml Powell.susp, 1 SPRAYS NA PRN for ALLERGY 06/22/20 Loperamide Hcl (LOPERAMIDE) 2 Mg Tablet, 0.5 TAB PO PRN PRN for DIARRHEA, CAP 06/22/20 Diphenhydramine Hcl (BENADRYL) 25 Mg Capsule, 50 MG PO BID PRN for ALLERGY 06/22/20 Aspirin (ASPIRIN ENTERIC COATED) 325 Mg Tabec, 325 MG PO DAILY, #30 TAB 06/22/20 Famotidine (FAMOTIDINE) 20 Mg Tab, 20 MG PO BID, #30 TAB 06/22/20 Simvastatin (SIMVASTATIN) 40 Mg Tablet, 40 MG PO HS, #30 TAB 06/22/20 Tizanidine Hcl (TIZANIDINE HCL) 4 Mg Tablet, 2 MG PO HS, TAB 06/21/20 Calcifediol (Rayaldee) 30 Mcg Cap.sa.24h, 1 CAP PO HS 06/21/20 Nifedipine (NIFEDIPINE ER) 30 Mg Tab.er.24, 60 MG PO DAILY 06/21/20 Metoprolol Tartrate (METOPROLOL TARTRATE) 25 Mg Tablet, 25 MG PO BID, TAB 06/21/20 Furosemide (LASIX) 80 Mg Tablet, 80 MG PO BID, TAB 06/21/20 Medications in the ED Aspirin 81 mg PRN ONCE PO ; Start 07/10/20 at 10:30; Stop 07/10/20 at 10:33; Status AMY BALTAZAR MD Jul 10, 2020 12:36
--- OUTSIDE RECORDS SUMMARY | 2020-07-10 12:56 | XMS REPORT | Continuity of Care Document ---
Author Author [facility] t Organization [facility] Address [address] [place] [address] Phone Unavailable Care Team Providers Care Ingot Buggy Operator Name Role Phone DO BOBBI MURCIA PCP AMY ESCOBAR Attphys Unavailable RUDOLPH, CHELSEY Attphys Unavailable BOBBI MURCIA Attphys Unavailable RUDOLPH, CHELSEY Admphys Unavailable Payers Payer Name Policy Type Policy Number Effective Date Expiration Date S arsen [employer] Replacement [id number] 2019 00:00:0 0 [facility] Problems Condition Name Condition Details Condition Category Status Onset Date Resolution Date Last Treatment Date Treating Clinician Comments Source Fever Problem Active [facility] Renal insufficiency Problem Active [facility] Weakness Problem Active [facility] Abdominal pain Problem Active [facility] Allergies, Adverse Reactions, Alerts Allergy Name Allergy Type Status Severity Reaction(s) Onset Date Inacti ve Date Treating Clinician Comments Source Penicillin Allergy to substance Active 2020-06-21 00:00:00 [facility] Penicillins DA Active SV 2015-12-13 00:00:00 [facility] tetracycline DA Active [place] 2015-12-13 00:00:00 [facility] TERAMYCIN DA Active DC 2015-12-13 00:00:00 [facility] Social History Social Habit Start Date Stop Date Quantity Comments Source Sex Assigned At 1945 00:00:00 1945 00:00:00 Male [facility] Medications Ordered Medication Name Filled Medication Name Start Date Stop Da te Current Medication? Ordering Clinician Indication Dosage Frequency Signature (SIG) Comments Components Source Aspirin (Aspirin Enteric Coated) 325 Mg TABEC Aspirin (Aspirin Enteric Coated) 325 Mg TABEC Yes 325 Daily [facility] Calcifediol (Rayaldee) 30 Mcg CAP.SA.24H Calcifediol ( Rayaldee) 30 Mcg CAP.SA.24H Yes 1 Bedtime [facility] Diphenhydramine Hcl (Benadryl) 25 Mg CAPSULE Diphenhyd ramine Hcl (Benadryl) 25 Mg CAPSULE Yes 50 Twice A Day as needed for A llergy [facility] Famotidine Famotidine Yes 20 Twice A Day [facility] Fluticasone Propionate Fluticasone Propionate Yes 1 as needed for Allergy [facility] Furosemide (Lasix) 80 Mg TABLET Furosemide (Lasix) 80 Mg TABLET Yes 80 Twice A Day [facility] Loperamide Hcl (Loperamide) 2 Mg TABLET Loperamide Hcl (Trevor ramide) 2 Mg TABLET Yes .5 As Needed as needed for Diarrhe a [facility] Metoprolol Tartrate Metoprolol Tartrate Yes 25 Twice A Day [facility] Nifedipine (Nifedipine Er) 30 Mg TAB.ER.24 Nifedipine (Nifedipine Er) 30 Mg TAB.ER.24 Yes 60 Daily [facility] Simvastatin Simvastatin Yes 40 Bedtime [facility] Tizanidine Hcl Tizanidine Hcl Yes 2 Bedtime [facility] Calcifediol (Rayaldee) 30 Mcg CAP.SA.24H Calcifediol ( Rayaldee) 30 Mcg CAP.SA.24H 2020-06-22 00:00:00 No Bedtime [facility] Furosemide Furosemide 2020-06-22 00:00:00 No 40 Twi ce A Day [facility] Aspirin (Aspirin Ec) 81 Mg TABLET. Aspirin (Aspirin Ec) 81 Mg TABLET. 2020-06-21 00:00:00 No 81 Daily [facility] Bumetanide Bumetanide 2020-06-21 00:00:00 No 1 Twi ce A Day [facility] Carvedilol (Coreg) 12.5 Mg TAB Carvedilol (Coreg) 12.5 Mg TAB 2020-06-21 00:00:00 No 25 Twice A Day [facility] Glimepiride (Amaryl) 4 Mg TABLET Glimepiride (Amaryl) 4 Mg TABLE T 2020-06-21 00:00:00 No 4 Daily [facility] Lisinopril Lisinopril 2020-06-21 00:00:00 No 5 Twi ce A Day [facility] Metformin Hcl Metformin Hcl 2020-06-21 00:00:00 No 500 Twice A Day [facility] Potassium Chloride Potassium Chloride 2020-06-21 00:00:00 No 1 Daily [facility] Vital Signs Vital Name Observation Time Observation Value Comments Source Body Temperature 2020-07-07 12:30:00 98.0 [degF] [facility] BMI (Body Mass Index) 2020-07-02 16:55:00 25.8 kg/m2 [facility] Weight 2020-06-30 06:38:00 179.50 [lb_av] [facility] Procedures Procedure Date / Time Performed Performing Clinician [facility] e Ultrasound guidance for vascular access 2020-06-25 00:00:00 [facility] Computed tomography of cervical spine without contrast 2020-06-07 0 00:00:00 [facility] Computed tomography of lumbar spine without contrast 2020-06-25 00:00:00 [facility] Computed tomography of chest without contrast 2020-06-22 00:00:0 0 [facility] Computed tomography of brain without radiopaque contrast 2020-06 00:00:[address] [facility] [address] of abdomen and pelvis without contrast 2020-06-21 00:00:[address] [facility] CT of abdomen and pelvis without contrast 2020-04-05 00:00:00 [facility] Encounters Start Date/Time End Date/Time Encounter Type Admission Type [facility] Care Department Encounter ID Source 2020-04-05 15:38:00 2020-04-05 15:38:00 Registered Clinic 3 BOBBI MURCIA [facility] [id number] [facility] Results Test Description Test Time Test Comments Results Result Comments Source CHEST SINGLE (PORTABLE) 2020-07-10 10:58:00 [facility] [address] [address] Patient Name: NUVIA HSU MR #: [id number] : 1945 Age/Sex: 74/M Req #: [id number] Adm Physician: Ordered by: AMY ESCOBAR MD Report #: [id number] Location: ER Room/Bed: Procedure: [id number] DX/CHEST SINGLE (PORTABLE) Exam Date: 07/10/20 Exam Time: 1044 REPORT STATUS: Signed EXAMINATION: CHEST SINGLE (PORTABLE) INDICATION: Chest pain. COMPARISON: Chest radiograph 07/03/2020. FINDINGS: LINES/TUBES: Interval removal of left IJ central venous catheter and right IJ non tunneled hemodialysis catheter. Interval placement of a right IJ tunneled hemodialysis catheter with catheter tip in the SVC. LUNGS/PLEURA: The lungs are well-inflated. Interval decrease in small left pleural effusion and left basilar patchy opacity. Interval resolution of mild pulmonary interstitial edema. Central vascular congestion. MEDIASTINUM: The cardiomediastinal silhouette appears unchanged in size and shape. Atherosclerotic calcifications of the thoracic aorta. BONES/SOFT TISSUES: No acute osseous abnormality. ABDOMEN: No free air under the diaphragm. IMPRESSION: Interval decrease in small left pleural effusion with decreased left basilar patchy opacity, which may represent atelectasis or infection. Interval resolution of mild pulmonary interstitial edema. Signed by: Dr. Gonzales Boyd MD on 07/10/2020 11:04 AM Dictated By: GONZALES BOYD MD 03 Transcribed By: CONRADO on 07/10/201103 COPY TO: AMY ESCOBAR MD Blood leukocytes automated count (number/volume) 2020-07-05 04:30:00 Test Item White Blood Count (test code = 6690-2) 6.01 4.8-10.8 [facility] count (number/volume)2020-07-05 04:30:00* Test Item Value Reference Range Interpretation Comments Red Blood Count (test code = 789-8) 2.73 4.3-5.7 [facility] hemoglobin measurement (moles/volume)2020-07-05 04:30:00* Test Item Value Reference Range Interpretation Comments Hemoglobin (test code = 10835-8) 8.0 14.0-18.0 [facility] blood hematocrit (volume fraction)2020-07-05 04:30:00* Test Item Value Reference Range Interpretation Comments Hematocrit (test code = 4544-3) 24.4 38.2-49.6 [facility] erythrocyte mean corpuscular ckjpcm7040-09-61 04:30:00* Test Item Value Reference Range Interpretation Comments Mean Corpuscular Volume (test code = 787-2) 89.4 81-99 [facility] erythrocyte mean corpuscular hemoglobin (mass per erythrocyte)2020-07-05 04:30:00* Test Item Value Reference Range Interpretation Comments Mean Corpuscular Hemoglobin (test code = 785-6) 29.3 28-32 [facility] erythrocyte mean corpuscular hemoglobin concentration measurement (mass/volume)2020-07-05 04:30:00* Test Item Value Reference Range Interpretation Comments Mean Corpuscular Hemoglobin Concent (test code = 786-4) 32.8 31-35 [facility] HospitalRDW FfuIf-Rak2086-82-30 04:30:00* Test Item Value Reference Range Interpretation Comments Red Cell Distribution Width (test code = 19244-1) 14.6 11.7 -14.4 [facility] blood platelet count (count/volume)2020-07-05 04:30:00* Test Item Value Reference Range Interpretation Comments Platelet Count (test code = 777-3) 231 140-360 [facility] blood segmented neutrophil count as percentage of total vfbfajxsju9579-96-40 04:30:00* Test Item Value Reference Range Interpretation Comments Neutrophils (%) (Auto) (test code = 37507-5) 58.6 38.7-80.0 [facility] blood lymphocyte count as percentage ot total nsktgxaqde9757-61-99 04:30:00* Test Item Value Reference Range Interpretation Comments Lymphocytes (%) (Auto) (test code = 736-9) 30.6 18.0-39.1 [facility]Autom[facility] blood monocyte count as percentage of total zbonyxgitw5578-21-10 04:30:00* Test Item Value Reference Range Interpretation Comments Monocytes (%) (Auto) (test code = 5905-5) 8.0 4.4-11.3 [facility]Autom[facility] blood eosinophil count as percentage of total boooxynwah4230-00-76 04:30:00* Test Item Value Reference Range Interpretation Comments Eosinophils (%) (Auto) (test code = 713-8) 1.3 0.0-6.0 [facility]Autom[facility] blood basophil count as percentage of total yjapuadmiz7736-40-71 04:30:00* Test Item Value Reference Range Interpretation Comments Basophils (%) (Auto) (test code = 706-2) 0.7 0.0-1.0 [facility] HospitalFluoroscopic procedure less than one hour yjvfqwtq6253-72-63 04:30:00* Test Item Value Reference Range Interpretation Comments IM GRANULOCYTES % (test code = IM GRANULOCYTES %) 0.8 0.0- 1.0 [facility] blood neutrophil count 2020-07-05 04:30:00* Test Item Value Reference Range Interpretation Comments Neutrophils # (Auto) (test code = 751-8) 3.5 2.1-6.9 [facility] lymphocytes count (number/volume) 2020-07-05 04:30:00* Test Item Value Reference Range Interpretation Comments Lymphocytes # (Auto) (test code = 75493-7) 1.8 1.0-3.2 [facility] monocytes automated count (number/volume)2020-07-05 04:30:00* Test Item Value Reference Range Interpretation Comments Monocytes # (Auto) (test code = 742-7) 0.5 0.2-0.8 [facility]Autom[facility] blood eosinophil count 2020-07-05 04:30:00* Test Item Value Reference Range Interpretation Comments Eosinophils # (Auto) (test code = 711-2) 0.1 0.0-0.4 [facility]Autom[facility] blood basophil count (count/volume)2020-07-05 04:30:00* Test Item Value Reference Range Interpretation Comments Basophils # (Auto) (test code = 704-7) 0.0 0.0-0.1 [facility] HospitalFluoroscopic procedure less than one hour mwbbtbpj9481-20-30 04:30:00* Test Item Value Reference Range Interpretation Comments Absolute Immature Granulocyte (auto (gold t code = Absolute Immature Granulocyte (auto) 0.05 0-0.1 [facility] sodium measurement (moles/volume)2020-07-05 04:30:00* Test Item Value Reference Range Interpretation Comments Sodium Level (test code = 2951-2) 141 136-145 [facility] or plasma potassium measurement (moles/volume)2020-07-05 04:30:00* Test Item Value Reference Range Interpretation Comments Potassium Level (test code = 2823-3) 3.6 3.5-5.1 [facility] or plasma chloride measurement (moles/volume)2020-07-05 04:30:00* Test Item Value Reference Range Interpretation Comments Chloride Level (test code = 2075-0) 103 98-107 [facility]er[facility] or plasma carbon dioxide, total measurement (moles/volume)2020-07-05 04:30:00* Test Item Value Reference Range Interpretation Comments Carbon Dioxide Level (test code = 2028-9) 27 22-29 [facility] or plasma anion tee0152-96-39 04:30:00* Test Item Value Reference Range Interpretation Comments Anion Gap (test code = 46737-8) 14.6 8-16 [facility] or plasma urea nitrogen measurement (mass/volume)2020-07-05 04:30:00* Test Item Value Reference Range Interpretation Comments Blood Urea Nitrogen (test code = 3094-0) 22 7-26 [facility] or plasma creatinine measurement (mass/volume)2020-07-05 04:30:00* Test Item Value Reference Range Interpretation Comments Creatinine (test code = 2160-0) 3.62 0.72-1.25 [facility] or plasma urea nitrogen/creatinine mass izwpr3576-12-77 04:30:00* Test Item Value Reference Range Interpretation Comments BUN/Creatinine Ratio (test code = 3097-3) 6 6-25 [facility] HospitalEstimated glomerular filtration rate (GFR) rmxfjpjxedcck1593-44-27 04:30:00* Test Item Value Reference Range Interpretation Comments Estimat Glomerular Filtration Rate (test code = 709040768) 17 >60 Ranges were taken from the National Kidney Disease Education Program and the [employer] literature.Reference ranges:60 or greater: Fqcsfp64-82 ( for 3 consecutive months): Chronic kidney disease 15 or less: Kidney failureMethodist McKinney HospitalGlucose pvrngqnwqfe4323-34-83 04:30:00* Test Item Value Reference Range Interpretation Comments Glucose Level (test code = BFB3337) 100 74-118 [facility] or plasma calcium measurement (mass/volume)2020-07-05 04:30:00* Test Item Value Reference Range Interpretation Comments Calcium Level (test code = 54900-7) 7.6 8.4-10.2 [facility] HospitalIR AXHTUDI2684-51-04 09:34:00 [facility] [address] [address] Patient Name: NUVIA HSU MR #: [id number] : 1945 Age/Sex: 74/M Req #: [id number] [facility] Physician: CHELSEY GALDAMEZ MD Ordered by: RADHA WALLER, AYESHA WALLER Report #: [id number] Location: [facility] Room/Bed: [address] [address] Procedure: [id number] DX/IR CONSULT Exam Date: Exam Time: REPORT STATUS: Signed Conversion of a nontunneled to tunnel ed dialysis catheter. History: Renal fa ilure. Modality: Fluorosco py. Sedation: Versed 1.5 mg and fentanyl 75 mcg was given intravenously for conscious sedation. Vital signs were monit ored throughout the procedure by a nurse, and remained stable. Physician intra -service time was 20 minutes. Hand Stone Polisher: MD Ramona. Hat Binder: None. Approach: Right internal jugular vein Estimated [...] A 19 cm tip to cuff 14.5 Estonian palindrome catheter was brought through the tunnel. [...] CONRADO on 07/04/20934 COPY TO: AYESHA GARCIA [facility] OR [id number] 09:34:[address] [address] Patient Name: NUVIA HSU MR #: [id number] : 1945 Age/Sex: 74/M Req #: [id number] Adm Physician: CHELSEY GALDAMEZ MD Ordered by: AYESHA GARCIA MD, MD Report #: [id number] Location: [facility] Room/Bed: [address] [place] [address] Procedure: [id number] FARIDA/MYESHA LOWE CENT DOMINIC PLMT OR REM [...] stable. Physician intra-service time was 20 minutes. Hand Stone Polisher: MD Ramona. Hat Binder: None. Approach: Right internal jugular vein Estimated [...] A 19 cm tip to cuff 14.5 Estonian palindrome catheter was brought through the tunnel. [...] TO: AYESHA GARCIA TUNNELLED CVC INSERT W/O [id number] 09:34:[address] [address] Patient Name: NUVIA HSU MR #: [id number] : 1945 Age/Sex: 74/M Req #: [id number] Adm Physician: CHELSEY GALDAMEZ MD Ordered by: RADHA WALLER, AYESHA WALLER Re port #: [id number] Location: [facility] Room/ Bed: [address] [address] Procedure: IR/TUNNELLED CVC INSERT W/O PORT Exam Date: Exam Time: REPORT STATUS: Signed Conversion of a no ntunneled to tunneled dialysis catheter. History: Renal failure. Modality: Fluoroscopy. Sedation: Versed 1 .5 mg and fentanyl 75 mcg was given intravenously for conscious sedation. Vit al signs were monitored throughout the procedure by a nurse, and remained stab le. Physician intra-service time was 20 minutes. Hand Stone Polisher: MD Ramona. Hat Binder: None. Approach: Right internal jugular vein Estimated [...] A 19 cm tip to cuff 14.5 Estonian palindrome catheter was brought through the tunnel. [...] (aPTT) in platelet poor plasma by coagulation nuwci9206-99-35 14:25:00* Test Item Value Reference Range Interpretation Comments Activated Partial Thromboplast Time (test code = 98259-1) 47.5 23.8-35.5 [facility] SINGLE (PORTABLE)2020-07-03 08:33:00 [facility] [address] [address] Patient Name: NUVIA HSU MR #: [id number] : 1945 Age/Sex: 74/M Req #: [id number] Adm Physician: CHELSEY GALDAMEZ MD Ordered by: JESÚS SALCEDO MD Report #: [id number] Location: [facility] Room/Bed: [address] [address] Procedure: [id number] DX/CHEST SING LE (PORTABLE) Exam Date: 07/03/20 [...] Bilirubin (test code = 1975-2) 0.8 0.2-1.2 [facility] HospitalFluoroscopic procedure less than one hour rwvemybm7551-05-89 05:30:00* Test Item Value Reference Range Interpretation Comments Aspartate Amino Transf (AST/SGOT) (test code = Aspartate Amino Transf (AST/SGOT)) 68 5-34 [facility] or plasma alanine aminotransferase measurement (enzymatic activity/volume)2020-07-01 05:30:00* Test Item Value Reference Range Interpretation Comments Alanine Aminotransferase (ALT/SGPT) (test code = 1742-6) 29 0-55 [facility] Hospitaler[facility] or plasma protein measurement (mass/volume)2020-07-01 05:30:00* Test Item Value Reference Range Interpretation Comments Total Protein (test code = 2885-2) 5.2 6.5-8.1 [facility] or plasma albumin measurement (mass/volume)2020-07-01 05:30:00* Test Item Value Reference Range Interpretation Comments Albumin (test code = 1751-7) 2.4 3.5-5.0 [facility] HospitalPlasma globulin measurement (mass/volume) 2020-07-01 05:30:00* Test Item Value Reference Range Interpretation Comments Globulin (test code = 34250-0) 2.8 2.3-3.5 [facility] or plasma albumin/globulin mass hjrhf5612-01-06 05:30:00* Test Item Value Reference Range Interpretation Comments Albumin/Globulin Ratio (test code = 1759-0) 0.9 0.8-2.0 [facility] or plasma alkaline phosphatase measurement (enzymatic activity/volume)2020-07-01 05:30:00* Test Item Value Reference Range Interpretation Comments Alkaline Phosphatase (test code = 6768-6) 101 40-150 [facility] HospitalProthrombin time (PT) in platelet poor plasma by coagulation tdqlt8454-40-32 11:40:00* Test Item Value Reference Range Interpretation Comments Prothrombin Time (test code = 5902-2) 16.6 11.9-14.5 [facility] HospitalINR in Platelet poor plasma by Coagulation lymvc9167-49-22 11:40:00* Test Item Value Reference Range Interpretation Comments Prothromb Time International Ratio (test code = 6301-6) 1.28 Oral Anticoagulant Therapy INR Values:1. Low Intensity Therapy 1.5 - 2.02 . Moderate Intensity Therapy 2.0 - 3.03. High Intensity Therapy(1) 2.5 - 3. 54. High Intensity Therapy(2) 3.0 - 4.05. Panic Value INR > 5.0 [facility] HospitalBONE and/or JOINT WHOLE RBCZ7649-91-64 11:33:00 [facility] [address] [place] [address] Patient Name: NUVIA HSU MR #: [id number] : 1945 Age/Sex: 74/M Req #: [id number] Adm Physician: CHELSEY GALDAMEZ MD Ordered by: BOBBI CAMPOS MD Report #: [id number] Location: ICU Room/Bed: [address] [address] Procedure: [id number] NM/BONE and/or J OINT WHOLE BODY Exam [...] 11:37 AM Dictated By: ELLA ROMO MD 1137 Transcribed By: CONRADO on 06/29/20 1137 COPY TO: BOBBI CAMPOS MD Fluoroscopic procedure less than one hour sxukghtq7076-84-66 04:30:00* Test Item Value Reference Range Interpretation Comments Differential Total Cells Counted (test code = Differen tial Total Cells Counted) 100 [facility] blood neutrophils/100 leukocytes 2020-06-29 04:30:00* Test Item Value Reference Range Interpretation Comments Neutrophils % (Manual) (test code = 14005-0) 85 40-74 [facility] blood lymphocytes/100 leukocytes 2020-06-29 04:30:00* Test Item Value Reference Range Interpretation Comments Lymphocytes % (Manual) (test code = 737-7) 9 19-48 [facility] blood monocytes/100 leukocytes 2020-06-29 04:30:00* Test Item Value Reference Range Interpretation Comments Monocytes % (Manual) (test code = 744-3) 4 3.4-9.0 [facility] blood eosinophil count as percentage of total drxwnbdtvw1411-00-54 04:30:00* Test Item Value Reference Range Interpretation Comments Eosinophils % (Manual) (test code = 714-6) 2 0-7 [facility] platelets count by estimate (number/volume)2020-06-29 04:30:00* Test Item Value Reference Range Interpretation Comments Platelet Estimate (test code = 57210-4) ADEQUATE [facility] HospitalPlatelet qmzyuxvfbq5278-93-90 04:30:00* Test Item Value Reference Range Interpretation Comments Platelet Morphology Comment (test code = 05927-7) NORMAL [facility] HospitalBlood hypochromia detection by light mdhcjcjtcb5684-33-75 04:30:00* Test Item Value Reference Range Interpretation Comments Hypochromasia (test code = 728-6) SLIGHT [facility] HospitalRBC qohyhzyfwk5876-52-98 04:30:00* Test Item Value Reference Range Interpretation Comments Red Cell Morphology Comment (test code = 6742-1) NORMAL [facility] or plasma iron measurement (mass/volume)2020-06-29 04:30:00* Test Item Value Reference Range Interpretation Comments Iron Level (test code = 2498-4) 24 65-175 [facility]er[facility] or plasma iron binding capacity measurement (mass/volume)2020-06-29 04:30:00* Test Item Value Reference Range Interpretation Comments Total Iron Binding Capacity (test code = 2500-7) 162 261-4 78 [facility]erum or plasma iron saturation measurement (mass fraction)2020-06-29 04:30:00* Test Item Value Reference Range Interpretation Comments Percent Iron Saturation (test code = 2502-3) 15 15-50 [facility]er[facility] or plasma transferrin measurement (mass/volume)2020-06-29 04:30:00* Test Item Value Reference Range Interpretation Comments Transferrin (test code = 3034-6) 116 174-364 [facility] HospitalCapillary blood glucose measurement by glucometer (mass/volume)2020-06-27 23:47:00* Test Item Value Reference Range Interpretation Comments Bedside Glucose (test code = 03933-5) 132 70-120 Meter ID: [id number] McKinney HospitalAmmonia Ser-mCnc 2020-06-27 19:50:00* Test Item Value Reference Range Interpretation Comments Ammonia (test code = 38683-5) 83 31-123 [facility] HospitalBlood shazgvm4675-95-80 09:14:00* Test Item Value Reference Range Interpretation Comments Blood Culture (test code = 69672291) NO GROWTH AFTER 5 DAYS, FINAL REPORT [facility] HospitalPhosphorus poibquknaya2713-39-72 05:50:00 * Test Item Value Reference Range Interpretation Comments Phosphorus Level (test code = RPI9726) 2.8 2.3-4.7 [facility] or plasma magnesium measurement (mass/volume)2020-06-27 05:50:00* Test Item Value Reference Range Interpretation Comments Magnesium Level (test code = 79207-1) 1.8 1.3-2.1 [facility] hepatitis B virus surface antibody assay by radioimmunoassay (units/volume)2020-06-26 17:20:00* Test Item Value Reference Range Interpretation Comments Hepatitis B Surface Antibody, Quant (test code = 5194-6) <3.1 Immunity>9.9 Status of Immunity Anti-HBs Level Inconsistent with Immunity 0.0 - 9.9Consistent with Immunity >9.9[facility] or plasma hepatitis B virus core antibody detection by tpinkzdzvjg0536-67-48 17:20:00* Test Item Value Reference Range Interpretation Comments Hepatitis B Core Total Antibody (test code = 14826-8) Positive Negative [facility] or plasma hepatitis B virus surface antigen detection by mchcqgtvmlz4575-37-96 17:20:00* Test Item Value Reference Range Interpretation Comments Hepatitis B Surface Antigen (test code = 5196-1) Negative Negat william [facility]er[facility] or plasma hepatitis B virus core IgM antibody detection by dwrbelcpkqb7401-10-94 17:20:00* Test Item Value Reference Range Interpretation Comments Hepatitis B Core IgM Antibody (test code = 41653-7) Negative Ne gative Performed at: [facility] [id number] Director: Darrell Tabares MD, Phone: [phone] [facility] ([facility])2020-06-26 08:42:00 [facility] [address] [place] [address] Patient Name: NUVIA HSU MR #: [id number] : 1945 Age/Sex: 74/M Req #: [id number] Adm Physician: CHELSEY GALDAMEZ MD Ordered by: BOBBI CAMPOS MD Report #: [id number] Location: ICU Room/Bed: ICU [facility] Procedure: [id number] DX/CHEST SINGLE (PORTABLE) Exam Date: 06/26/20 Exam [...] 8:45 AM Dictated By: SUNDAY LUCERO MD [facility] Signed By: SUNDAY LUCERO MD on 09/21/20 0845 Transcribed By: CONRADO on 844 COPY TO: BOBBI CAMPOS MD Manual blood band neutrophils form/100 pugzjzgtyd6790-51-22 04:30:00* Test Item Value Reference Range Interpretation Comments Band Neutrophils % (test code = 764-1) 9 [facility]CT LUMBAR SPINE RN6509-75-43 17:53:00 [facility] [address] [place] [address] Patient Name: NUVIA HSU MR #: [id number] : 1945 Age/Sex: 74/M Req #: [id number] Adm Physician: CHELSEY GALDAMEZ MD Ordered by: DAPHNIE KLINE MD Report #: [id number] Location: ICU Room/Bed: ICU [facility] Procedure: [id number] CT/CT LUMBAR SP INE WO Exam Date: [...] TO: DAPHNIE KLINE MD CT CERVICAL SPINE DW4289-95-30 17:44:00 [place] [address] Patient Name: NUVIA HSU MR #: [id number] : 1945 Age/Sex: 74/M Req #: [id number] Adm Physician: CHELSEY GALDAMEZ MD Ordered by: DAPHNIE KLINE MD Report #: [id number] Location: ICU Room/Bed: ICU [facility] Procedure: [id number] CT/CT CERVICAL SPINE WO Exam Date: 06/25/20 [...] Interpretation Comments Lactate Dehydrogenase (test code = 600234070) 497 125-220 [facility] or plasma haptoglobin measurement (mass/volume)2020-06-25 13:10:00* Test Item Value Reference Range Interpretation Comments Haptoglobin (test code = 4542-7) 97 34-355 Performed at: - [facility] [id number] [employer] Hand: Benita Acosta MD, Phone: [phone] Hermann [facility] Hospitalerum or plasma complement C3 measurement (mass/volume)2020-06-25 13:10:00* Test Item Value Reference Range Interpretation Comments Complement C3 (test code = 4485-9) 105 82-167 [facility]er[facility] or plasma complement C4 measurement (mass/volume)2020-06-25 13:10:00* Test Item Value Reference Range Interpretation Comments Complement C4 (test code = 4498-2) 29 14-44 Performed at: [employer] [facility] [address] [id number] Director: Darrell Tabares MD, Phone: [phone] McKinney HospitalCHES SINGLE (PORTABLE)2020-06-25 12:52:00 [place] [address] Patient Name: NUVIA HSU MR #: [id number] : 1945 Age/Sex: 74/M Req #: [id number] Adm Physician: CHELSEY GALDAMEZ MD Ordered by: GONZALES BOYD MD Report #: [id number] Location: ICU Room/Bed: [place] [address] Procedure: [id number] DX/CHEST SINGLE ( PORTABLE) Exam Date: 06/25/20 [...] Fermin BOYD MD CHEST SINGLE (PORTABLE)2020-06-25 09:53:00 [place] [address] Patient Name: NUVIA HSU MR #: [id number] : 1945 Age/Sex: 74/M Req #: [id number] Adm Physician: CEHLSEY GALDAMEZ MD Ordered by: CHELSEY GALDAMEZ MD Report #: [id number] Location: ICU Room/Bed: ICU 189 Procedure: [id number] DX/CHEST SIN GLE (PORTABLE) Exam Date: 06/25/20 [...] GALDAMEZ MD CHEST SINGLE (PORTABLE) 2020-06-25 08:01:00 [place] [address] Patient Name: NUVIA HSU MR #: [id number] : 1945 Age/Sex: 74/M Req #: [id number] Adm Physician: CHELSEY GALDAMEZ MD Ordered by: CHELSEY GALDAMEZ MD Report #: [id number] Location: [facility] Room[place] [address] Procedure: [id number] DX/CHEST SIN GLE (PORTABLE) Exam Date: 06/25/20 [...] 08 Transcribed By: ZACH ISAAC on 06/25/20 0803 COPY TO: CHELSEY GALDAMEZ MD Arterial blood pH zyesnxnpnob0401-06-17 04:00:00* Test Item Value Reference Range Interpretation Comments Arterial Blood pH (test code = 2744-1) 7.39 7.35-7.45 [facility] HospitalpCO2 FxlI7168-21-69 04:00:00* Test Item Value Reference Range Interpretation Comments Arterial Blood Partial Pressure CO2 (test code = 2018-) 35 35-45 [facility] HospitalpCO2 SiwD5546-27-07 04:00:00* Test Item Value Reference Range Interpretation Comments Arterial Blood Partial Pressure O2 (test code = 2018-8) 76 80-105 [facility] HospitalArterial blood bicarbonate measurement (moles/volume)2020-06-25 04:00:00* Test Item Value Reference Range Interpretation Comments Arterial Blood HCO3 (test code = 1960-4) 22 22-26 [facility] HospitalArterial cord blood carbon dioxide, total measurement by calculation (moles/volume)2020-06-25 04:00:00* Test Item Value Reference Range Interpretation Comments Arterial Blood Total CO2 (test code = 95749-8) 23 [facility] HospitalArterial blood base excess by calculation 2020-06-25 04:00:00* Test Item Value Reference Range Interpretation Comments Arterial Blood Base Excess (test code = 1925-7) -3.0 -2-3 [facility] HospitalArterial blood oxygen saturation btedratzdpz5224-31-80 04:00:00* Test Item Value Reference Range Interpretation Comments Arterial Blood Oxygen Saturation (test code = 2708-6) 95.0 95-98 [facility] HospitalFluoroscopic procedure less than one hour zytfzqbo1469-62-75 04:00:00* Test Item Value Reference Range Interpretation Comments FiO2 (test code = FiO2) 36 4 L NASAL CANNULAMethodist McKinney HospitalErythrocyte sedimentation rate by Westergren bhfpgb6072-77-90 14:30:00* Test Item Value Reference Range Interpretation Comments Erythrocyte Sedimentation Rate (test code = 4537-7) 38 0- 13 [facility]er[facility] or plasma cyclic citrullinated peptide IgA+IgG antibody assay by immunoassay (units/volume)2020-06-24 14:30:00 * Test Item Value Reference Range Interpretation Comments Cyclic Citrullinated Peptide IgG Ab (test code = 02186-3) 4 0-19 Negative <20 Weak positive 20 - 39 Moderate positive 40 - 59 Strong positive >59Performed at: - [facility] [id number] Director: Darrell Tabares MD, Phone: [phone] at: [facility] [id number] Director: Benita Acosta MD, Phone: [phone] Hermann Southeast Hospitalerum or plasma rheumatoid factor measurement (units/volume)2020-06-24 14:30:00* Test Item Value Reference Range Interpretation Comments Rheumatoid Factor (test code = 16387-6) 15.4 0.0-13.9 [facility] Hospitaler[facility] nuclear antibody titer by ujrwewozbvskleawqb8910-46-93 14:30:00* Test Item Value Reference Range Interpretation Comments Anti-Nuclear Antibody Screen (test code = 5048-4) Negative . Negative <1:80 Borderline 1:80 Positive > 1:80Performed at: [facility] [id number] 3Lab Director: Darrell Tabares MD, Phone: [phone] Hermann Southeast Hospitalerum or plasma C reactive protein measurement (mass/volume)2020-06-24 14:30:00* Test Item Value Reference Range Interpretation Comments C-Reactive Protein (test code = 1988-5) 222 0-10 Performed at: [employer] [facility] [id number] Director: Darrell Tabares MD, Phone: [phone] Hermann Southeast Hospitalerum proteinase 3 antibody assay by immunoassay (units/volume)2020-06-24 06:20:00* Test Item Value Reference Range Interpretation Comments Anti-Proteinase 3 (c-ANCA) (test code = 66951-5) <3.5 0.0-3 .5 Performed at: [facility] [id number] [employer] Hand: Benita Acosta MD, Phone: [phone] Hermann Southeast Hospitalerum myeloperoxidase antibody assay by immunoassay (units/volume) 2020-06-24 06:20:00* Test Item Value Reference Range Interpretation Comments Myeloperoxidase Antibody (test code = 69280-6) <9.0 0.0-9.0 [facility]er[facility] or plasma uric acid measurement (mass/volume)2020-06-23 15:59:00* Test Item Value Reference Range Interpretation Comments Uric Acid (test code = 3084-1) 5.6 4.8-8.0 [facility] HospitalFree thyroxine lwhlc0543-97-57 15:59:00* Test Item Value Reference Range Interpretation Comments Free Thyroxine Index (test code = 56988-9) 1.6435 1.4-3.8 [facility]er[facility] or plasma thyroxine (T4) measurement (mass/volume)2020-06-23 15:59:00* Test Item Value Reference Range Interpretation Comments Thyroxine (T4) (test code = 3026-2) 4.97 4.5-10.9 [facility]er[facility] or plasma triiodothyronine resin uptake (T3RU)2020-06-23 15:59:00* Test Item Value Reference Range Interpretation Comments Triiodothyronine (T3) Uptake (test code = 3050-2) 33.07 22.5 -37.0 [facility]er[facility] or plasma thyrotropin measurement by detection limit <= 0.005 miu/l (units/volume)2020-06-23 15:59:00* Test Item Value Reference Range Interpretation Comments Thyroid Stimulating Hormone (TSH) (test code = 54475-0) 1.978 0.350-4.940 [facility] Hospitaler[facility] or plasma prolactin measurement (mass/volume)2020-06-23 15:59:00* Test Item Value Reference Range Interpretation Comments Prolactin (test code = 2842-3) 6.2 4.0-15.2 Performed at: [facility] [id number] Director: Darrell Tabares MD, Phone: [phone] Hermann Southeast Hospitaljogren's antibodies (SSA)2020-06-23 15:59:00* Test Item Value Reference Range Interpretation Comments SS-A/Ro Antibody (test code = IEG5811) <0.2 0.0-0.9 [facility] Hospitaljogren's antibodies (SSB)2020-06-23 15:59:00* Test Item Value Reference Range Interpretation Comments SS-B/La Antibody (test code = EEJ5972) <0.2 0.0-0.9 Performed at: [facility] [id number] Director: Darrell Tabares MD, Phone: [phone] Hermann Southeast Hospitalerum striated muscle antibody titer by ulcugrcqleufdihhol0681-35-16 15:59:00* Test Item Value Reference Range Interpretation Comments Anti-Striated Muscle Antibody (test code = 5372-8) Negative Neg :<1:40 Performed at: [facility] [id number] [employer] Hand: Benita Acosta MD, Phone: [phone] Hermann Southeast Hospitalerum acetylcholine receptor antibody assay (moles/volume) 2020-06-23 15:59:00* Test Item Value Reference Range Interpretation Comments Acetylcholine Receptor Binding Ab (test code = 84853-1) <0.03 0.00-0.24 Negative: 0.00 - 0.24 Borderline: 0.25 - 0.40 Positive: > 0.40[facility] Hospitalerum acetylcholine receptor blocking antibody/total acetylcholine antibody ioicu6477-56-95 15:59:00* Test Item Value Reference Range Interpretation Comments Acetylcholine Receptor Blocking Ab (test code = 25416-2) 17 0-25 Negative: 0 - 25 Borderline: 26 - 30 Positive: >30[facility] Hospitalerum acetylcholine receptor modulation antibody/total acetylcholine antibody lapnc0879-71-99 15:59:00* Test Item Value Reference Range Interpretation Comments Acetylcholine Recept Modulating Ab (test code = 30015-4) <12 0-20 Negative: <21 Equivocal: 21 - 25 Positive: >25 The assay is linear between values of 12 and 64. Those <12 and >64 are reported as such. No single value for ACR-modulating antibody should be used as a sole basis for diagnosis or response to therapy.[facility] Hospitalerum or plasma myoglobin measurement (mass/volume)2020-06-23 15:59:00* Test Item Value Reference Range Interpretation Comments Myoglobin (test code = 2639-3) 961 28-72 Performed at: - [facility] [id number] Director: Darrell Tabares MD, Phone: [phone] Hermann Southeast Hospitalerum perinuclear neutrophil cytoplasmic antibody titer by yddsclzrxwyhhzlddn8927-27-42 09:39:00* Test Item Value Reference Range Interpretation Comments p-ANCA Titer (test code = 19795-7) <1:20 Neg:<1:20 The presence of positive fluorescence exhibiting P-ANCA orC-ANCA patterns alone is not specific for the diagnosis ofWegener's Granulomatosis (WG) or microscopic polyangiitis.Decisions about treatment should not be based solely onANCA IFA re sults. The International ANCA Group Consensusrecommends follow up testing of po sitive sera with both CO-3 and MPO-ANCA enzyme immunoassays. As many as 5% serum samples are positive only by EIA. Ref. AM J Clin Teutnu6965;111:507-513.[facility] HospitalCytoplasmic antineutrophil cytoplasmic antibody (c-ANCA) bnzts3000-70-68 09:39:00* Test Item Value Reference Range Interpretation Comments c-ANCA Titer (test code = 57518-9) <1:20 Neg:<1:20 [facility]er[facility] atypical perinuclear neutrophil cytoplasmic antibody titer by ntlqeofauezuivmmyh3761-28-81 09:39:00* Test Item Value Reference Range Interpretation Comments Atypical p-ANCA (test code = 44867-2) <1:20 Neg:<1:20 The atypical pANCA pattern has been observed in asignificant percentage of patie nts with ulcerative colitis,primary sclerosing cholangitis and autoimmune hepati tis.Performed at: - [place] [address]Lab Director: Benita Acosta MD, Phone: [phone] McKinney HospitalCT CHEST IV6274-20-40 15:05:00 [place] [address] Patient Name: NUVIA HSU MR #: [id number] : 1945 Age/Sex: 74/M Req #: [id number] Adm Physician: CHELSEY GALDAMEZ MD Ordered by: CHELSEY GALDAMEZ MD Report #: [id number] Location: MED/SURG3 Room/Bed: [facility] Procedure: [id number] CT/CT CHEST WO Exam Date: 06/22/20 Exam [...] COPY TO: CHELSEY GALDAMEZ MD CT BRAIN WR2380-19-29 13:38:00 [place] [id number] Patient Name: NUVIA HSU MR #: [id number] : 1945 Age/Sex: 74/M Req #: [id number] Adm Physician: CHELSEY GALDAMEZ MD Ordered by: CHELSEY GALDAMEZ MD Report #: [id number] Location: [place] [address] Room/Bed: [facility] Procedure: [id number] CT/CT BRAIN WO Exam Date: 06/22/20 Exam [...] for external border zone infarct at the [employer] territ ory. 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 3. Chronic microvascular ischemic change. [...] Comments Random Vancomycin Level (test code = 51512-4) 9.0 [facility] HospitalFluoroscopic procedure less than one hour anlsnbpi3987-75-75 07:19:00* Test Item Value Reference Range Interpretation Comments Albumin (PEP) (test code = Albumin (PEP)) 3.2 2.9-4.4 [facility]er[facility] or plasma alpha 1 globulin measurement by electrophoresis (mass/volume)2020-06-22 07:19:00* Test Item Value Reference Range Interpretation Comments Wowgt-5-Odyvgleju (test code = 2865-4) 0.4 0.0-0.4 [facility] Hospitalerum or plasma alpha 2 globulin measurement by electrophoresis (mass/volume)2020-06-22 07:19:00* Test Item Value Reference Range Interpretation Comments Bhwhj-3-Hsxvuegwy (test code = 2868-8) 0.8 0.4-1.0 [facility] Hospitalerum or plasma beta globulin measurement by electrophoresis (mass/volume)2020-06-22 07:19:00* Test Item Value Reference Range Interpretation Comments Beta Gamma Globulin (test code = 2871-2) 1.1 0.7-1.3 [facility] Hospitalerum or plasma gamma globulin measurement by electrophoresis (mass/volume)2020-06-22 07:19:00* Test Item Value Reference Range Interpretation Comments Gamma Globulins (test code = 2874-6) 1.1 0.4-1.8 [facility] Hospitalerum or plasma protein measurement (mass/volume)2020-06-22 07:19:00* Test Item Value Reference Range Interpretation Comments Total Protein (PEP) (test code = 2885-2) 6.6 6.0-8.5 [facility] Hospitalerum globulin measurement by calculation (mass/volume)2020-06-22 07:19:00* Test Item Value Reference Range Interpretation Comments Globulin (test code = 04694-3) 3.4 2.2-3.9 [facility]er[facility] immunoglobulin kappa light chains measurement (mass/volume)2020-06-22 07:19:00* Test Item Value Reference Range Interpretation Comments Amity Light Chain Analysis (test code = 17235-6) 58.4 3.3-1 9.4 [facility]er[facility] or plasma immunoglobulin free lambda light chains measurement (mass/volume)2020-06-22 07:19:00* Test Item Value Reference Range Interpretation Comments Lambda Light Chain Analysis (test code = 51668-3) 35.4 5.7- 26.3 [facility] Hospitaler[facility] immunoglobulin kappa light chains/immunoglobulin lambda light chains mass bndsg0625-78-26 07:19:00* Test Item Value Reference Range Interpretation Comments Totl Amity/Lambda Light Chain Ratio (test code = 61313-7) 1.65 0.26-1.65 Performed at: - [facility] [address] [id number] Director: Darrell Tabares MD, Phone: [phone] at: [facility] - [facility] [address] [id number] Director: TIM Bolanos MD, Phone: [phone] Hermann Southeast Hospitalerum or plasma protein monoclonal measurement by electrophoresis (mass/volume)2020-06-22 07:19:00* Test Item Value Reference Range Interpretation Comments Protein Electrophoresis M-Aman (test code = 89965-9) Not Observ ed Not Observed [facility]er[facility] or plasma albumin/globulin mass ddvfp6410-91-88 07:19:00* Test Item Value Reference Range Interpretation Comments Albumin/Globulin Ratio (test code = 1759-0) 0.9 0.7-1.7 [facility] HospitalFluoroscopic procedure less than one hour fpsfcjuz4501-57-68 07:19:00* Test Item Value Reference Range Interpretation Comments Protein Electrophoresis Note (test code = Protein Electropho resis Note) Comment . Protein electrophoresis scan will follow via computer,mail, or child and family services worker delivery. [facility] Hospitalerum or plasma intact pararthyroid hormone measurement (mass/volume)2020-06-22 07:19:00* Test Item Value Reference Range Interpretation Comments Parathyroid Hormone (test code = 2731-8) 33 15-65 [facility] Hospitalerum or plasma calcium measurement (mass/volume)2020-06-22 07:19:00* Test Item Value Reference Range Interpretation Comments Calcium (Send out) (test code = 59475-0) 8.8 8.6-10.2 [facility] HospitalFluoroscopic procedure less than one hour sgdhysss9518-07-63 07:19:00* Test Item Value Reference Range Interpretation Comments Parathyroid Hormone Interpretation (test code = Parathyroid Hormone Interpretation) Comment . Interpretation Intact PTH Calcium (pg/mL) (mg/dL)Normal 15 - 65 8.6 - 10.2Pr imary Hyperparathyroidism >65 >10.2Secondary Hyperparathyroidism >65 <10.2Non-Parathyroid Hypercalcemia <65 >10.2Hypoparathyroidism <15 < 8.6Non- Parathyroid Hypocalcemia 15 - 65 < 8.6Performed at: HD - [facility] [address] [id number] Director: Darrell Tabares MD, Phone: [phone] at: BN - [facility] [address] [id number] Director: Benita Acosta MD, Phone: [phone] McKinney HospitalCHEST SINGLE (PORTABLE)2020-06-21 06:10:00 [place] [address] Patient Name: NUVIA HSU MR #: [id number] : 1945 Age/Sex: 74/M Req #: [id number] Adm Physician: CHELSEY GALDAMEZ MD Ordered by: PHAN EUCEDA MD Report #: [id number] Location: [facility] Room/Bed: [place] [address] Procedure: [id number] DX/CHES T SINGLE (PORTABLE) Exam Date: 06/21/20 [...] COPY TO: PHAN EUCEDA MD CT ABDOMEN/PELVIS QD7937-00-98 04:57:00 [place] [address] Patient Name: NUVIA HSU MR #: [id number] : 1945 Age/Sex: 74/M Req #: [id number] Adm Physician: CHELSEY GALDAMEZ MD Ordered by: PHAN EUCEDA MD Report #: [id number] Location: [facility] Room/Bed: [place] [address] Procedure: [id number] CT/CT A BDOMEN/PELVIS WO Exam Date: 06/21/20 Exam Time: 0425 REPORT STATUS: Signed EXAM: CT Abdomen and Pelvis WITHOUT contrast INDICATION: Y RLQ PAIN, FEVE R Y COMPARISON: None. TECHNIQUE: Abdomen and pelvis were scanned util[employer] [place] ng a multidetector helical scanner from the [...] COPY TO: PHAN EUCEDA MD Urine color fwxfmbtldpljk5446-80-39 03:45:00* Test Item Value Reference Range Interpretation Comments Urine Color (test code = 5778-6) YELLOW YELLOW DARK YELLOWMethodist McKinney HospitalUrine atocycs9300-55-99 03:45:00* Test Item Value Reference Range Interpretation Comments Urine Clarity (test code = 85123-5) CLEAR CLEAR [facility] Hospitalpecific gravity of Urine by Test strip 2020-06-21 03:45:00* Test Item Value Reference Range Interpretation Comments Urine Specific Art (test code = 5811-5) 1.020 1.010-1.02 5 [facility] HospitalUrine pH measurement by automated test qjzug1400-01-45 03:45:00* Test Item Value Reference Range Interpretation Comments Urine pH (test code = 92135-1) 6.5 5-7 [facility] HospitalUrine leukocyte esterase detection by dosyrjny1938-82-56 03:45:00* Test Item Value Reference Range Interpretation Comments Urine Leukocyte Esterase (test code = 5799-2) NEGATIVE NEGATIVE [facility] HospitalUrine nitrite clblrfrua4967-91-94 03:45:00* Test Item Value Reference Range Interpretation Comments Urine Nitrite (test code = 99555-5) NEGATIVE NEGATIVE [facility] HospitalUrine protein measurement by test strip (mass/volume)2020-06-21 03:45:00* Test Item Value Reference Range Interpretation Comments Urine Protein (test code = 5804-0) 2+ NEGATIVE [facility] HospitalUrine glucose znflmsfjn6855-51-58 03:45:00* Test Item Value Reference Range Interpretation Comments Urine Glucose (UA) (test code = 2349-9) 1+ NEGATIVE [facility] HospitalUrine ketones detection by automated test bwiiu4378-12-85 03:45:00* Test Item Value Reference Range Interpretation Comments Urine Ketones (test code = 50758-3) 2+ NEGATIVE [facility] HospitalUrine urobilinogen measurement by test strip (mass/volume)2020-06-21 03:45:00* Test Item Value Reference Range Interpretation Comments Urine Urobilinogen (test code = 08571-6) 1 0.2-1 [facility] HospitalUrine total bilirubin measurement (mass/volume)2020-06-21 03:45:00* Test Item Value Reference Range Interpretation Comments Urine Bilirubin (test code = 1978-6) NEGATIVE NEGATIVE [facility] HospitalUrine erythrocytes bnzbvotbt6754-15-71 03:45:00* Test Item Value Reference Range Interpretation Comments Urine Blood (test code = 53066-4) LARGE NEGATIVE [facility] HospitalAutomated urine sediment leukocyte count by microscopy (number/high power field)2020-06-21 03:45:00* Test Item Value Reference Range Interpretation Comments Urine WBC (test code = 5821-4) 0-5 0-5 [facility] HospitalErythrocytes detection in urine sediment by light eypozezpev1790-97-00 03:45:00* Test Item Value Reference Range Interpretation Comments Urine RBC (test code = 36393-6) 11-20 0-5 [facility] HospitalBacteria detection in urine sediment by light aasitmsoqy3341-25-59 03:45:00* Test Item Value Reference Range Interpretation Comments Urine Bacteria (test code = 31598-9) FEW NONE [facility] HospitalEpithelial cells detection in urine sediment by light gaykavqxcs8104-48-51 03:45:00* Test Item Value Reference Range Interpretation Comments Urine Epithelial Cells (test code = 75594-0) MODERATE NONE [facility] HospitalFluoroscopic procedure less than one hour fmoaiaeh5908-56-95 03:45:00* Test Item Value Reference Range Interpretation Comments Lactic Acid Level (test code = Lactic Acid Level) 1.9 0.5- 2.0 [facility] Hospitalerum or plasma creatine kinase measurement (enzymatic activity/volume)2020-06-21 03:45:00* Test Item Value Reference Range Interpretation Comments Creatine Kinase (test code = 2157-6) 1960 30-200 [facility] Hospitalerum or plasma creatine kinase MB measurement (mass/volume)2020-06-21 03:45:00* Test Item Value Reference Range Interpretation Comments Creatine Kinase MB (test code = 17363-2) 2.20 0-5.0 [facility] by highly sensitive enzyme gphfdqowqcf9273-76-35 03:45:00* Test Item Value Reference Range Interpretation Comments Troponin I (test code = 98014-9) 0.119 0-0.300 [facility] amylase measurement (enzymatic activity/volume)2020-06-21 03:45:00* Test Item Value Reference Range Interpretation Comments Amylase Level (test code = 1798-8) 40 25-125 [facility] lipase measurement (enzymatic activity/volume)2020-06-21 03:45:00* Test Item Value Reference Range Interpretation Comments Lipase (test code = 3040-3) 13 8-78 [facility] (mass/volume) 2020-06-21 03:45:00* Test Item Value Reference Range Interpretation Comments Urine Protein (test code = 2888-6) 71.8 Not Estab. [facility] albumin/total protein ratio by ebkgbrbuffuvclg8829-73-96 03:45:00* Test Item Value Reference Range Interpretation Comments Urine Albumin (test code = 77672-4) 21.1 . [facility] alpha 1 globulin/total protein by vmehfxdrltlvaba9421-17-11 03:45:00* Test Item Value Reference Range Interpretation Comments Urine Ddzde-5-Pcrdiqqt (test code = 91856-1) 7.4 . [facility] alpha 2 globulin/total protein by ryiiyqtabjrswsh8509-85-17 03:45:00* Test Item Value Reference Range Interpretation Comments Urine Wekzh-9-Jibczvisz (test code = 49906-3) 24.5 . [facility] beta globulin/total protein ratio by yhsmzlvvsawxjci5615-79-16 03:45:00* Test Item Value Reference Range Interpretation Comments Urine Beta Globulin (test code = 95822-5) 29.6 . [facility] gamma globulin/total protein ratio by tzzxjzuuwjpojwt3973-64-16 03:45:00* Test Item Value Reference Range Interpretation Comments Urine Gamma Globulin (test code = 05757-2) 17.4 . [facility] protein monoclonal/total protein by gufnkbzdyibbqfg0612-56-30 03:45:00* Test Item Value Reference Range Interpretation Comments Urine Random PEP M-Aman % (test code = 41583-8) 3.4 Not O bserved [facility]Fluoroscopic procedure less than one hour mqkzryyi7948-21-99 03:45:00* Test Item Value Reference Range Interpretation Comments Protein Electrophoresis Note (test code = Protein Electropho resis Note) Comment . Protein electrophoresis scan will follow via computer,mail, or child and family services worker delivery. Performed at: - [facility] [id number] Director: Darrell Tabares MD, Phone: [phone] at: - [facility] [address] [id number] Director: TIM Bolanos MD, Phone: [phone] [facility] HospitalFluoroscopic procedure less than one hour nuakscxy7577-87-70 03:45:00* Test Item Value Reference Range Interpretation [...] collected from individuals suspected of COVID-19 by [facility] provider. This test has not been [...] EUA is revoked under 564(g) of the ACT.[facility]/PELVIS [id number] 16:52:00 [place] [address] Patient Name: NUVIA HSU MR #: [id number] : 1945 Age/Sex: 74/M Req #: [id number] Adm Physician: Ordered by: BOBBI MURCIA DO Report #: [id number] Location: CARD Room/Bed: Procedure: [id number] CT/CT ABDOMEN/P DIANE WO Exam Date: 04/05/20 [...] BOBBI MURCIA DO - CT ABDOMEN W/O [id number] 13:16:00 Name: NUVIA HSU [facility] : 1945 Age/S: 73 / [facility] [address] [facility]: [id number] Loc: [place] [address] Phys: Alysha Rivero DO Acct: [id number] Di s Date: Status: REG CLI PHONE #: Exam Date: 03/11/2019 1233 FAX #: [phone] Reason: ABDOMINAL AORTIC ANEURYSM EXAMS: CPT CODE: [id number] CT ABDOMEN W/ O CONT 56685 HISTORY: Abdominal aortic aneurysm. COMPARISON: CT scan [...] 1 Signed Report (CONTINUED) Name: NUVIA HSU Patrica [facility] : 1945 Age/S: 73 / M [address] [facility] Unit #: [id number] Loc: [place] [address] Phys: Kareem Rivero DO Acct: [id number] Dis Date: Stat us: REG CLI PHONE #: [phone] Exam Date: 03/11/2019 1233 FAX #: [phone] Reason: ABDOMINAL AORTIC ANEURYSM EXAMS: CPT CODE: [id number] CT ABDOMEN W/O CONT 53460 <Continued> Normal appendix without bowel obstruction or colitis or diverticulitis. Mildly thickened duodenal wall and the jejunal wall which could represent enteritis. No inflammatory changes. Correlate with white cell count. No free fluid or free air. at 1316 Reported and signed by: Robbin Paulson M.D. CC: Kareem Rivero Technologist:Jessica VelásquezRT(R),CT; Maggie CTDI: DLP: Trnscb Date/Time: 03/11/2019 (3549) HeraclioTH4 Orig Print D/T: S: 03/11/2019 (8854) PAGE 2 Signed Report
[2020-07-10] MEDS ORDERED: HEPARIN SOD (PORCINE) 1000 UNIT/ML SDV ONE (13:10)
--- NOTE | 2020-07-10 15:07 | Consultation ---
DATE OF CONSULTATION: 07/10/2020 HISTORY OF PRESENT ILLNESS: The patient is seen in the emergency room. A 74-year-old gentleman apparently cleared out to the emergency room because of malfunctioning dialysis catheter. His last dialysis was . He is otherwise comfortable, awake, alert. by bedside. No apparent distress. PAST MEDICAL HISTORY: Past history of underlying COPD, prostate enlargement, recent rihcg-vj-pzizfep kidney failure, ATN leading to end-stage renal disease, hyperlipidemia, history of prior smoking, history or prior cholecystectomy, history of coronary artery disease, status post PCI and stenting. Currently, awake, alert, oriented x3, in no apparent distress. by bedside. Denies shortness of breath, nausea, or vomiting. LABORATORY DATA: Blood tests shows a white count of 7.1 and hemoglobin is 9.1. Phosphorus 2.8 and magnesium 1.8. The phosphorus and magnesium are from June, so his most recent labs show sodium 139, potassium 3.6, bicarbonate 25, BUN 39, and creatinine 3.84. ALLERGIES: HE IS ALLERGIC TO PENICILLIN. HOME MEDICATIONS: Have not been reconciled yet. The patient is still in the ER. PHYSICAL EXAMINATION: GENERAL: Awake, alert, lying supine, in no apparent distress. VITAL SIGNS: Blood pressure of 130/60, pulse rate 77, afebrile. HEAD AND NECK: Cornea clear. Oral mucosa moist. Neck veins flat. LUNGS: Decreased air entry at bases. Relatively clear. HEART: S1 and S2 audible. ABDOMEN: Otherwise soft and nontender. No apparent visceromegaly. EXTREMITIES: Lower extremity, no edema. IMPRESSION AND PLAN: Malfunctioning dialysis catheter, end-stage renal disease. IR to address malfunctioning catheter after dialysis. We will see and attempt to use the catheter and see if it works. Discussed with and the patient. Please see orders. MD SUSANNAH Cartagena/MODL /[id number]
[2020-07-10 18:22] VITALS: BP 146/74
--- NOTE | 2020-07-10 18:46 | NUR ---
per film archivist, when starting dialysis filtration patient became short of breath and complained of pain at site and in back. film archivist notified Dr. Davis and dialysis was stopped. Dr. Davis will assess cath tomorrow. no orders received. patient stable at this time.
--- NOTE | 2020-07-10 19:15 | NUR ---
BEDSIDE SHIFT REPORT RECEIVED. PATIENT IS RESTING IN BED, AAOX3. RESP EVEN AND UNLABORED. TELE IN PLACE. EDUCATED PT ABOUT FALL PRECAUTIONS. PT VERBALIZED UNDERSTANDING. CALL LIGHT WITH IN EASY REACH. INSTRUCTED PT TO USE CALL LIGHT FOR ALL THE NEEDS. BED IS LOW AND LOCKED. SIDE RAILS X2. BED ALARM IS ON. PT DENIES NEEDS AT THIS TIME.
[2020-07-10 20:00] VITALS: BP 101/48
[2020-07-10] MEDS ORDERED: DIPHENHYDRAMINE HCL 25 MG CAP PO PRN (20:00)
[2020-07-10] MEDS: METOPROLOL TARTRATE 50 MG TAB PO SCH (20:09)
[2020-07-10] MEDS: LEVALBUTEROL HCL SOLN NEBU 1.25 MG/3 ML NEB INH SCH (20:10)
[2020-07-10] MEDS ORDERED: LOPERAMIDE HCL 2 MG CAP PO PRN (20:15)
[2020-07-10 20:55] LABS: CREATINE KINASE MB 1.9 ng/mL (0-5.0)
[2020-07-10] MEDS ORDERED: SIMVASTATIN 40 MG TAB PO SCH (21:00)
[2020-07-10] MEDS: TIZANIDINE HCL 4 MG TAB PO SCH (21:00)
[2020-07-10] MEDS: TAMSULOSIN HCL 0.4 MG CAP PO SCH (21:05)
[2020-07-10] MEDS: SIMVASTATIN 40 MG TAB PO SCH (21:06)
--- NOTE | 2020-07-10 22:10 | History and Physical ---
CHIEF COMPLAINT: Malfunction of the dialysis catheter. HISTORY OF PRESENT ILLNESS: Mr. Acevedo is a 74-year-old male, who was discharged recently from the hospital. The patient was discharged on July 07, 2020. The patient initially came in with generalized weakness, became septic, but had fever, gradually improved. Also, diagnosed with atrial fibrillation. He was discharged at [facility] for rehabilitation on July 07 and the patient came back today because malfunction of the permanent dialysis catheter. He was diagnosed with end-stage renal disease when he was in the hospital here. He denies any complaints of chest pain, nausea, or vomiting. Now, he has a longstanding history of smoking. He smoked 6 packs per day for 30 years and quit 20 years ago. REVIEW OF SYSTEMS: GENERAL: Denies any fever or chills. HEAD: Denies any head trauma. ENT: Denies any earache. CVS: Denies any chest pain. RESPIRATORY: Denies any shortness of breath. Rest of the review of systems are negative except as in HPI. PAST MEDICAL HISTORY: Coronary artery disease, history of stroke, hypertension, CKD, now end-stage renal disease. FAMILY AND SOCIAL HISTORY: He is an ex-smoker. Does not smoke any more. He has history of aortic stents and peripheral arterial disease. PHYSICAL EXAMINATION: VITAL SIGNS: Temperature 98.0, pulse of 72, blood pressure 127/60, respiratory rate of 18, and O2 saturation 98% on 2 L. HEENT: Head is atraumatic and normocephalic. NECK: Supple. CHEST: Clear to auscultation bilaterally. No wheezing. HEART: S1 and S2 audible. ABDOMEN: Soft. Awake and alert. Catheter appears to be normal. LABORATORY DATA: White count of 7000, hemoglobin 9.1, and platelets 289. Chemistry reviewed. ASSESSMENT/PLAN: Mr. Acevedo is a 74-year-old male with malfunctioning dialysis catheter. Overall, the patient is doing well. Current problem: 1. Malfunctioning dialysis catheter. 2. History of atrial fibrillation. 3. Hypertension. 4. Chronic obstructive pulmonary disease. 5. Long-term anticoagulation for atrial fibrillation. 6. Hyperlipidemia. 7. Coronary artery disease. PLAN: Interventional Radiology has been consulted for evaluation of malfunctioning HD access. We will consult Nephrology for routine hemodialysis. Continue home medications. Once cleared by other services, the patient will be discharged back to [facility]. MD SELENA Kaufman/PRIYANKA /[id number]
[2020-07-10 22:13] VITALS: BP 101/48
[2020-07-11] VITALS (8 sets, daily range): BP systolic 105–135; BP diastolic 40–61
[2020-07-11 05:47] LABS: BASOPHILS # (AUTO) 0.1 (0.0-0.1); BASOPHILS % 1.2 % (0.0-1.0); EOSINOPHILS # (AUTO) 0.4 (0.0-0.4); EOSINOPHILS % 5.2 % (0.0-6.0); HEMATOCRIT 26.2 % (38.2-49.6); HEMOGLOBIN 8.5 g/dL (14.0-18.0); LYMPHOCYTES # (AUTO) 3.5 (1.0-3.2); LYMPHOCYTES % 47.5 % (18.0-39.1); MEAN CORPUSCULAR HEMOGLOBIN 29.8 pg (28-32); MEAN CORPUSCULAR HGB CONC 32.4 g/dL (31-35); MEAN CORPUSCULAR VOLUME 91.9 fL (81-99); MONOCYTES # (AUTO) 0.8 (0.2-0.8); NEUTROPHILS # (AUTO) 2.5 (2.1-6.9); NEUTROPHILS % 34.7 % (38.7-80.0); PLATELET COUNT 241 x10e3/uL (140-360); RED BLOOD COUNT 2.85 x10e6/uL (4.3-5.7); RED CELL DISTRIBUTION WIDTH 14.9 % (11.7-14.4)
[2020-07-11 06:22] LABS: CREATINE KINASE MB 1.8 ng/mL (0-5.0)
[2020-07-11] MEDS ORDERED: HEPARIN SOD (PORCINE) 1000 UNIT/ML SDV IV PRN (06:45)
[2020-07-11] MEDS ORDERED: SODIUM CHLORIDE 0.9% 1000ML 2,000 ML IV PRN (06:45)
[2020-07-11] MEDS: LEVALBUTEROL HCL SOLN NEBU 1.25 MG/3 ML NEB INH SCH ×2 (07:00→19:00)
[2020-07-11 07:25] LABS: ALBUMIN 2.2 g/dL (3.5-5.0); ALBUMIN/GLOBULIN RATIO 0.6 (0.8-2.0); ANION GAP 11.7 mmol/L (8-16); CALCIUM 7.8 mg/dL (8.4-10.2); CREATININE, SERUM 3.12 mg/dL (0.72-1.25); POTASSIUM 3.7 mmol/L (3.5-5.1)
[2020-07-11] MEDS: METOPROLOL TARTRATE 50 MG TAB PO SCH ×2 (08:01→16:27)
[2020-07-11] MEDS: SERTRALINE HCL 50 MG TAB PO SCH (08:01)
[2020-07-11] MEDS: FAMOTIDINE 20 MG TAB PO SCH ×2 (08:01→16:27)
[2020-07-11] MEDS: AMIODARONE HCL 200 MG TAB PO SCH (08:01)
[2020-07-11] MEDS ORDERED: APIXAB 2.5 MG TABLET PO SCH (09:00)
--- NOTE | 2020-07-11 17:53 | NUR ---
per IR, they are planning a tunnelled cath removal and new placement of tunnelled cath in morning. consent completed and on chart. patient aware of NPO after midnight tonight.
--- NOTE | 2020-07-11 19:10 | NUR ---
Bedside shift report received from morning nurse. Pt alert and oriented to name, lying in bed HOB 45 degrees. Denies pain at this time. Call light within reach.
[2020-07-11] MEDS: TAMSULOSIN HCL 0.4 MG CAP PO SCH (20:52)
[2020-07-11] MEDS: TIZANIDINE HCL 4 MG TAB PO SCH (20:53)
[2020-07-11] MEDS: SIMVASTATIN 40 MG TAB PO SCH (20:53)
--- NOTE | 2020-07-11 21:00 | NUR ---
Dr. Owusu rounded, no further orders.
[2020-07-12] VITALS (8 sets, daily range): BP systolic 111–134; BP diastolic 51–70
[2020-07-12] MEDS ORDERED: ONDANSETRON HCL INJ 2MG/ML 2ML 2 MG/ML VIAL IV PRN (06:30)
--- NOTE | 2020-07-12 06:36 | NUR ---
RECEIVED BEDSIDE SHIFT REPORT FROM OFF GOING NURSE. PATIENT IS RESTING IN BED, NO ACUTE DISTRESS NOTED. CALL LIGHT WITHIN REACH. BED IN THE LOWEST POSITION.
[2020-07-12 06:41] LABS: ALBUMIN 2.1 g/dL (3.5-5.0); ALBUMIN/GLOBULIN RATIO 0.6 (0.8-2.0); ANION GAP 10.8 mmol/L (8-16); CALCIUM 7.7 mg/dL (8.4-10.2); CREATININE, SERUM 2.98 mg/dL (0.72-1.25); POTASSIUM 3.8 mmol/L (3.5-5.1)
[2020-07-12] MEDS: LEVALBUTEROL HCL SOLN NEBU 1.25 MG/3 ML NEB INH SCH ×2 (07:00→19:00)
[2020-07-12] MEDS: METOPROLOL TARTRATE 50 MG TAB PO SCH ×2 (09:00→16:05)
[2020-07-12] MEDS: FAMOTIDINE 20 MG TAB PO SCH ×2 (09:00→16:23)
--- NOTE | 2020-07-12 09:09 | NUR ---
DR. GARCIA CALLED AND SPOKE TO THIS NURSE. PER , NOTIFY IR TO REMOVE TUNNELED DIALYSIS CATHETER ONLY, NO NEED TO REPLACE.
--- NOTE | 2020-07-12 10:45 | NUR ---
CALLED AND SPOKE WITH RANDA ABOUT RETURNING PT BACK TO [facility], SHE STATES HE IS READY AND WANT S TO RETURN TO BEGIN HIS THERAPY AGAIN, EDUCATED ABOUT IMM, SIGNED AND WILL FAX CLINICALS TO [phone]. COMPLETE RTF AND GIVE TO CM TO FILE IN CHART.
--- NOTE | 2020-07-12 11:16 | Diagnostic Imaging Report ---
Right Tunneled dialysis catheter Removal. History: No longer requiring hemodialysis. Modality: None. Sedation: None Video Control Engineer: Wenceslao Velásquez MD. Reading Teacher: None. Approach: Right anterior chest. Estimated blood loss: < 5 cc. Specimen: None. Technique: The procedure including risks and benefits were explained to the patient, who expressed understanding. After informed written consent was obtained, the patient's right anterior chest region was prepped and draped in the usual sterile fashion. The skin was anesthetized with lidocaine. The tunneled dialysis catheter was then removed in total with blunt dissection and gentle traction. The skin entry site was then dressed with sterile gauze and Tegaderm. The patient tolerated the procedure well. Impression: Successful, uncomplicated removal of a right tunneled dialysis catheter. Signed by: Wenceslao Velásquez MD on 07/12/2020 11:12 AM
[2020-07-12] MEDS: AMIODARONE HCL 200 MG TAB PO SCH (11:51)
[2020-07-12] MEDS: SERTRALINE HCL 50 MG TAB PO SCH (11:51)
--- NOTE | 2020-07-12 12:10 | NUR ---
PER DR. GARCIA, PATIENT IS TO FOLLOW UP WITH HIM IN 15 DAYS.
--- NOTE | 2020-07-12 19:06 | NUR ---
BEDSIDE SHIFT REPORT GIVEN TO ONCOMING NURSE. PATIENT IS IN STABLE CONDITION, SHE IS RESTING IN BED. CALL LIGHT WITHIN REACH. BED IN THE LOWEST POSITION. Addendum: 07/12/20 at 1913 by CHIO REHMAN RN HE IS IN STABLE CONDITION
[2020-07-12] MEDS ORDERED: ONDANSETRON HCL 4 MG ORAL DISINTEGRATING TAB PO PRN (19:15)
--- NOTE | 2020-07-12 20:05 | Progress Note ---
DATE: SUBJECTIVE: The patient is breathing much better. No distress. Awake and alert. Dr. Davis recommended to discontinue the dialysis catheter. The patient does not require hemodialysis. PHYSICAL EXAMINATION: VITAL SIGNS: Temperature 98.5, pulse of 60, blood pressure 119/60, respiratory rate of 18, and O2 saturation 100% on room air. CHEST: Clear to auscultation bilaterally. HEART: S1, S2 audible. ABDOMEN: Soft. NEUROLOGIC: Awake and alert. LABORATORY DATA: White count of 7000, hemoglobin 8.5, platelets 241. Chemistry reviewed. Creatinine is down to 2.98. ASSESSMENT/PLAN: Mr. Acevedo is a 74-year-old male who was admitted with malfunctioning dialysis catheter. However, the patient has improved and Dr. Davis has recommended that the patient does not need hemodialysis. It has been removed. History of atrial fibrillation, currently stable. Chronic obstructive pulmonary disease is stable. The patient is weak and need subacute rehabilitation. He will be transferred to SNF in a.m. The patient can be discharged once the discharge planning is complete. MD SELENA Kaufman/PRIYANKA /[id number]
[2020-07-12] MEDS: TAMSULOSIN HCL 0.4 MG CAP PO SCH (21:00)
[2020-07-12] MEDS: SIMVASTATIN 40 MG TAB PO SCH (21:00)
[2020-07-12] MEDS: TIZANIDINE HCL 4 MG TAB PO SCH (21:00)
[2020-07-13] VITALS (7 sets, daily range): BP systolic 100–137; BP diastolic 53–71
--- NOTE | 2020-07-13 08:13 | NUR ---
FAXED PT NOT TO COMPLETE REFERRAL FOR [facility].,
[2020-07-13] MEDS: AMIODARONE HCL 200 MG TAB PO SCH (08:15)
[2020-07-13] MEDS: FAMOTIDINE 20 MG TAB PO SCH ×2 (08:16→18:35)
[2020-07-13] MEDS: SERTRALINE HCL 50 MG TAB PO SCH (08:16)
[2020-07-13] MEDS: METOPROLOL TARTRATE 50 MG TAB PO SCH ×2 (08:16→18:35)
--- NOTE | 2020-07-13 10:30 | NUR ---
SPOKE WITH BUILDING REP, STILL PENDING WILL LET KNOW WHEN GET AUTH
[2020-07-13] MEDS: TAMSULOSIN HCL 0.4 MG CAP PO SCH (20:07)
[2020-07-13] MEDS: TIZANIDINE HCL 4 MG TAB PO SCH (20:07)
[2020-07-13] MEDS: SIMVASTATIN 40 MG TAB PO SCH (20:07)
--- NOTE | 2020-07-13 21:03 | Discharge Summary ---
FINAL DIAGNOSES: 1. Malfunctioning dialysis catheter. 2. Chronic obstructive pulmonary disease. 3. Hypertension. 4. History of atrial fibrillation. 5. Hyperlipidemia. 6. Coronary artery disease. ADMISSION HISTORY AND HOSPITAL COURSE: Mr. Acevedo is a 74-year-old male, presented to the emergency room with malfunctioning dialysis catheter. The patient was recently here with history of atrial fibrillation, COPD, currently stable. Dr. Davis was consulted. He recommended removal of the dialysis catheter as the patient's kidney function has improved, which was removed by Interventional Radiology. The patient is cleared to be discharged from Nephrology standpoint. He will be discharged back to [facility] once the Case Management clears the patient to be discharged. Discharge medication list reviewed. MD SELENA Kaufman/PRIYANKA /[id number]
[2020-07-14] VITALS (8 sets, daily range): BP systolic 101–147; BP diastolic 47–72
[2020-07-14] MEDS: AMIODARONE HCL 200 MG TAB PO SCH (08:49)
[2020-07-14] MEDS: SERTRALINE HCL 50 MG TAB PO SCH (08:50)
[2020-07-14] MEDS: METOPROLOL TARTRATE 50 MG TAB PO SCH ×2 (08:50→17:00)
[2020-07-14] MEDS: FAMOTIDINE 20 MG TAB PO SCH ×2 (08:50→17:01)
--- NOTE | 2020-07-14 13:49 | NUR ---
CALLED FACILITY STILL PENDING AUTH
--- NOTE | 2020-07-14 16:00 | NUR ---
CALLED AND SPOKE WITH KAMRAN AT [facility] SHE STATES SHE SPOKE WITH CM AT INSURANCE AND WILL CALL WITH JEROME, KAMRAN WILL CALL ALE THE NURSE WITH MOT AND PACKET GIVEN TO NURSE AT NURSES STATION TO COMPLETE TRANSFER.
--- NOTE | 2020-07-14 19:47 | NUR ---
Received change of shift report from AM nurse. Walking rounds completed.
[2020-07-14] MEDS: SIMVASTATIN 40 MG TAB PO SCH (20:10)
[2020-07-14] MEDS: TIZANIDINE HCL 4 MG TAB PO SCH (20:10)
[2020-07-14] MEDS: TAMSULOSIN HCL 0.4 MG CAP PO SCH (20:10)
[2020-07-15] VITALS (8 sets, daily range): BP systolic 98–141; BP diastolic 43–62
--- NOTE | 2020-07-15 05:50 | NUR ---
Patient resting quitly at this time.
[2020-07-15] MEDS: AMIODARONE HCL 200 MG TAB PO SCH (09:19)
[2020-07-15] MEDS: METOPROLOL TARTRATE 50 MG TAB PO SCH ×2 (09:20→17:00)
[2020-07-15] MEDS: FAMOTIDINE 20 MG TAB PO SCH ×2 (09:20→17:32)
[2020-07-15] MEDS: SERTRALINE HCL 50 MG TAB PO SCH (09:20)
--- NOTE | 2020-07-15 09:27 | NUR ---
NO MOT RECEIVED YESTERDAY FROM [facility] CALL PLACED TO KAMRAN LAWS, [employer] TECHNICIAN AT [phone] TO CHECK ON STATUS OF AUTH
--- NOTE | 2020-07-15 13:37 | NUR ---
SPOKE WITH LAUREN AT [facility] WHO STATES SHE STILL DOESN'T HAVE AUTH FROM INSURANCE CM SPOKE WITH DR CAMPOS REGARDING DELAY IN SNF AUTH; HE STATES THAT IF P.T. CLEARS THE PT FRIDAY FOR SAFE DC HOME PT MAY GO HOME WITH HOME HEALTH CARE
--- NOTE | 2020-07-15 19:27 | NUR ---
Patient received lying in bed. AAO x 4. Patient had no complaints of pain. Respirations even and non-labored. Safety measures implemented. Patient instructed to call for assistance when needed. Call light within reach.
[2020-07-15] MEDS: TIZANIDINE HCL 4 MG TAB PO SCH (20:43)
[2020-07-15] MEDS: TAMSULOSIN HCL 0.4 MG CAP PO SCH (20:43)
[2020-07-15] MEDS: SIMVASTATIN 40 MG TAB PO SCH (20:43)
[2020-07-16] VITALS (8 sets, daily range): BP systolic 108–133; BP diastolic 53–62
[2020-07-16] MEDS: METOPROLOL TARTRATE 50 MG TAB PO SCH ×2 (08:49→16:08)
[2020-07-16] MEDS: FAMOTIDINE 20 MG TAB PO SCH ×2 (08:49→16:50)
[2020-07-16] MEDS: SERTRALINE HCL 50 MG TAB PO SCH (08:49)
[2020-07-16] MEDS: AMIODARONE HCL 200 MG TAB PO SCH (08:49)
--- NOTE | 2020-07-16 19:15 | NUR ---
Patient received lying in bed. No acute distress noted. Fall precautions implemented. Call light within reach.
--- NOTE | 2020-07-16 21:12 | Progress Note ---
DATE: SUBJECTIVE: The patient is doing well. No distress. The patient was supposed to go to [facility]. Discharge was canceled as the patient's bed was not available. PHYSICAL EXAMINATION: VITAL SIGNS: Temperature 97.8, pulse of 50, and blood pressure 132/62. CHEST: Clear. GENERAL: Awake and alert. ABDOMEN: Soft. LABORATORY DATA: Last labs were on 07/12. I will recheck labs in a.m. ASSESSMENT/PLAN: Mr. Acevedo is a 74-year-old male, who was admitted for malfunctioning dialysis catheter, now improved. Nephrology decided not to perform dialysis as the patient is improved. The patient is weak and will be referred to SNF for rehabilitation, if the patient is unable to get bed at SNF, then may need to go home with home health. MD SELENA Kaufman/PRIYANKA /[id number]
[2020-07-16] MEDS: TIZANIDINE HCL 4 MG TAB PO SCH (21:43)
[2020-07-16] MEDS: SIMVASTATIN 40 MG TAB PO SCH (21:43)
[2020-07-16] MEDS: TAMSULOSIN HCL 0.4 MG CAP PO SCH (21:43)
[2020-07-17] VITALS: BP 99/56
[2020-07-17 04:00] VITALS: BP 119/46
--- NOTE | 2020-07-17 07:00 | NUR ---
RCD PT AT BED PT IS ALERT AND ORIENTED PT RESTING ON BED IV PATENT BED LOW AND LOCKED CALL LIGHT IN REACH
[2020-07-17 07:05] LABS: BASOPHILS # (AUTO) 0.1 (0.0-0.1); BASOPHILS % 1.5 % (0.0-1.0); EOSINOPHILS # (AUTO) 0.5 (0.0-0.4); EOSINOPHILS % 7.3 % (0.0-6.0); HEMOGLOBIN 8.8 g/dL (14.0-18.0); LYMPHOCYTES # (AUTO) 3.2 (1.0-3.2); MEAN CORPUSCULAR HGB CONC 32.6 g/dL (31-35); MEAN CORPUSCULAR VOLUME 92.2 fL (81-99); MONOCYTES # (AUTO) 0.8 (0.2-0.8); MONOCYTES % 10.4 % (4.4-11.3); NEUTROPHILS # (AUTO) 2.8 (2.1-6.9); NEUTROPHILS % 37.4 % (38.7-80.0); PLATELET COUNT 172 x10e3/uL (140-360); RED BLOOD COUNT 2.93 x10e6/uL (4.3-5.7); RED CELL DISTRIBUTION WIDTH 14.7 % (11.7-14.4)
[2020-07-17 07:38] LABS: ANION GAP 12.1 mmol/L (8-16); CALCIUM 7.8 mg/dL (8.4-10.2); CREATININE, SERUM 2.44 mg/dL (0.72-1.25); POTASSIUM 4.1 mmol/L (3.5-5.1)
--- NOTE | 2020-07-17 07:52 | NUR ---
CALLED FACILITY, WILL UPDATE SOON POSSIBLE, STILL PENDING
[2020-07-17 07:59] VITALS: BP 123/54
[2020-07-17 08:31] VITALS: BP 123/54
--- NOTE | 2020-07-17 08:31 | NUR ---
FAXED NOTES IN COMPUTER TO FACILITY FOR UPDATES
[2020-07-17] MEDS: SERTRALINE HCL 50 MG TAB PO SCH (09:00)
[2020-07-17] MEDS: AMIODARONE HCL 200 MG TAB PO SCH (09:00)
[2020-07-17] MEDS: METOPROLOL TARTRATE 50 MG TAB PO SCH ×2 (09:00→16:04)
[2020-07-17] MEDS: FAMOTIDINE 20 MG TAB PO SCH ×2 (09:00→16:04)
--- NOTE | 2020-07-17 09:45 | NUR ---
Patient ambulated ~55 ft with CGA using a RW. May go home with home PT. Pt has a walker at home. Addendum: 07/17/20 at 0946 by Duc Almaguer PT Amended: Links added.
--- NOTE | 2020-07-17 11:20 | NUR ---
FAXED HAND WRITTEN NOTES TO FACILITY
[2020-07-17 12:05] VITALS: BP 128/58
--- NOTE | 2020-07-17 13:29 | NUR ---
WAS TOLD THE IS A DENIAL ISSUED AND PEER TO PEER IS OFFERED [phone] [facility], PENDING CASE # [id number], CALLED RANDA AND SHE STATES HE HAD [facility] AND WANTS THEM AGAIN. WILL FAX TO [phone]
--- NOTE | 2020-07-17 13:35 | NUR ---
Dr Espinoza said OK to discharge home with home health.
--- NOTE | 2020-07-17 13:38 | NUR ---
FAXED TO [facility] PER FAMILY REQUEST
[2020-07-17 15:41] VITALS: BP 143/53
--- NOTE | 2020-07-17 17:19 | NUR ---
PATIENT WENT HOME IN SAFE CONDITION WITH HIS
== END 2020-07-17 17:13 | disposition home or self-care (01) ==
LOC: ER 10:30 → ERHOLD 12:36 → MED/SURG2 16:43
PROVIDERS: ADMIT Internal Medicine Pulmonary Disease; ATTEND Internal Medicine Pulmonary Disease
DX: T82.41XA Breakdown (mechanical) of vascular dialysis catheter, initial encounter (principal); I48.91 Unspecified atrial fibrillation; Z79.01 Long term (current) use of anticoagulants; I25.10 Atherosclerotic heart disease of native coronary artery without angina pectoris; Z87.891 Personal history of nicotine dependence; I12.0 Hypertensive chronic kidney disease with stage 5 chronic kidney disease or end stage renal disease; N18.6 End stage renal disease; N40.0 Benign prostatic hyperplasia without lower urinary tract symptoms; Z95.5 Presence of coronary angioplasty implant and graft; J44.9 Chronic obstructive pulmonary disease, unspecified; Z11.59 Encounter for screening for other viral diseases
CPT/HCPCS: 36415 ×4; 36589 ×2; 71045; 74470 ×2; 80048; 80053 ×3; 82550 ×2; 82553 ×2; 84484 ×2; 85025 ×3; 85610; 85730; 93005; 97110 ×2; 97116 ×2; 97139 ×3; 97162; 97530 ×5; 99251; 99284; G0378 ×8; J1644; J2405; U0002; 90962

== ENCOUNTER 2020-10-10 20:55 | Inpatient (IN) | payer MEDICARE ==
[~2020-10-10] VITALS: Ht 177.8 cm; Wt 98.0 kg
[2020-10-10 22:05] LABS: BASOPHILS # (AUTO) 0.1 (0.0-0.1); BASOPHILS % 0.7 % (0.0-1.0); EOSINOPHILS # (AUTO) 0.6 (0.0-0.4); EOSINOPHILS % 7.2 % (0.0-6.0); HEMATOCRIT 29.7 % (38.2-49.6); HEMOGLOBIN 9.2 g/dL (14.0-18.0); LYMPHOCYTES # (AUTO) 0.9 (1.0-3.2); LYMPHOCYTES % 10.5 % (18.0-39.1); MEAN CORPUSCULAR VOLUME 90.3 fL (81-99); MONOCYTES # (AUTO) 0.7 (0.2-0.8); MONOCYTES % 8.2 % (4.4-11.3); NEUTROPHILS % 72.9 % (38.7-80.0); PLATELET COUNT 188 x10e3/uL (140-360); RED BLOOD COUNT 3.29 x10e6/uL (4.3-5.7); RED CELL DISTRIBUTION WIDTH 13.7 % (11.7-14.4)
[2020-10-10 22:25] LABS: ALBUMIN 2.9 g/dL (3.5-5.0); ALBUMIN/GLOBULIN RATIO 0.8 (0.8-2.0); ANION GAP 12.7 mmol/L (8-16); CREATININE, SERUM 2.35 mg/dL (0.72-1.25); POTASSIUM 3.7 mmol/L (3.5-5.1)
[2020-10-10 23:16] LABS: CREATINE KINASE MB 1.5 ng/mL (0-5.0)
[2020-10-11] VITALS (8 sets, daily range): BP systolic 128–145; BP diastolic 51–63
[2020-10-11 05:32] LABS: BASOPHILS # (AUTO) 0.1 (0.0-0.1); BASOPHILS % 0.8 % (0.0-1.0); EOSINOPHILS # (AUTO) 0.3 (0.0-0.4); EOSINOPHILS % 3.4 % (0.0-6.0); HEMATOCRIT 30.1 % (38.2-49.6); HEMOGLOBIN 9.3 g/dL (14.0-18.0); LYMPHOCYTES # (AUTO) 1.4 (1.0-3.2); LYMPHOCYTES % 17.7 % (18.0-39.1); MEAN CORPUSCULAR HGB CONC 30.9 g/dL (31-35); MEAN CORPUSCULAR VOLUME 90.7 fL (81-99); MONOCYTES # (AUTO) 0.7 (0.2-0.8); MONOCYTES % 8.4 % (4.4-11.3); NEUTROPHILS # (AUTO) 5.4 (2.1-6.9); NEUTROPHILS % 69.4 % (38.7-80.0); PLATELET COUNT 177 x10e3/uL (140-360); RED BLOOD COUNT 3.32 x10e6/uL (4.3-5.7); RED CELL DISTRIBUTION WIDTH 13.6 % (11.7-14.4)
[2020-10-11 05:51] LABS: ANION GAP 11.6 mmol/L (8-16); CALCIUM 7.9 mg/dL (8.4-10.2); CREATININE, SERUM 2.27 mg/dL (0.72-1.25); POTASSIUM 3.6 mmol/L (3.5-5.1)
[2020-10-11 06:43] LABS: CREATINE KINASE MB 2.3 ng/mL (0-5.0)
[2020-10-11] MEDS: FAMOTIDINE 20 MG TAB PO SCH ×2 (10:24→16:59)
[2020-10-11] MEDS: SERTRALINE HCL 50 MG TAB PO SCH (10:24)
[2020-10-11] MEDS: APIXAB 2.5 MG TABLET PO SCH ×2 (10:24→16:59)
[2020-10-11] MEDS: FUROSEMIDE INJ 10 MG/ML 4 ML VIAL IV SCH (10:24)
[2020-10-11 15:31] LABS: CREATINE KINASE MB 2.5 ng/mL (0-5.0)
[2020-10-11] MEDS ORDERED: LEVALBUTEROL HCL SOLN NEBU 1.25 MG/3 ML NEB INH SCH (19:00)
[2020-10-11] MEDS: TAMSULOSIN HCL 0.4 MG CAP PO SCH (21:00)
[2020-10-11] MEDS: SIMVASTATIN 40 MG TAB PO SCH (21:01)
[2020-10-11] MEDS: TIZANIDINE HCL 4 MG TAB PO SCH (21:02)
[2020-10-12] VITALS (8 sets, daily range): BP systolic 124–153; BP diastolic 52–61
[2020-10-12 05:16] LABS: BASOPHILS # (AUTO) 0.1 (0.0-0.1); BASOPHILS % 0.8 % (0.0-1.0); EOSINOPHILS # (AUTO) 0.7 (0.0-0.4); EOSINOPHILS % 9.7 % (0.0-6.0); LYMPHOCYTES # (AUTO) 1.4 (1.0-3.2); LYMPHOCYTES % 18.5 % (18.0-39.1); MEAN CORPUSCULAR HEMOGLOBIN 28.4 pg (28-32); MEAN CORPUSCULAR VOLUME 88.7 fL (81-99); MONOCYTES # (AUTO) 0.7 (0.2-0.8); MONOCYTES % 9.5 % (4.4-11.3); NEUTROPHILS # (AUTO) 4.6 (2.1-6.9); NEUTROPHILS % 61.2 % (38.7-80.0); PLATELET COUNT 160 x10e3/uL (140-360); RED BLOOD COUNT 2.82 x10e6/uL (4.3-5.7); RED CELL DISTRIBUTION WIDTH 13.6 % (11.7-14.4)
[2020-10-12 06:13] LABS: ANION GAP 10.3 mmol/L (8-16); CALCIUM 7.7 mg/dL (8.4-10.2); CREATININE, SERUM 2.38 mg/dL (0.72-1.25); POTASSIUM 3.3 mmol/L (3.5-5.1)
[2020-10-12] MEDS: FUROSEMIDE INJ 10 MG/ML 4 ML VIAL IV SCH (08:48)
[2020-10-12] MEDS: SERTRALINE HCL 50 MG TAB PO SCH (08:49)
[2020-10-12] MEDS: FAMOTIDINE 20 MG TAB PO SCH ×2 (08:49→16:56)
[2020-10-12] MEDS: APIXAB 2.5 MG TABLET PO SCH ×2 (08:49→16:56)
[2020-10-12] MEDS ORDERED: POTASSIUM CHLORIDE 10MEQ EA PO ONE (09:15)
[2020-10-12] MEDS: TAMSULOSIN HCL 0.4 MG CAP PO SCH (21:48)
[2020-10-12] MEDS: SIMVASTATIN 40 MG TAB PO SCH (21:49)
[2020-10-12] MEDS: TIZANIDINE HCL 4 MG TAB PO SCH (21:49)
[2020-10-13] VITALS (8 sets, daily range): BP systolic 121–160; BP diastolic 50–63
[2020-10-13] MEDS: FAMOTIDINE 20 MG TAB PO SCH ×2 (08:53→16:48)
[2020-10-13] MEDS: FUROSEMIDE INJ 10 MG/ML 4 ML VIAL IV SCH (08:53)
[2020-10-13] MEDS: APIXAB 2.5 MG TABLET PO SCH ×2 (08:53→16:48)
[2020-10-13] MEDS: SERTRALINE HCL 50 MG TAB PO SCH (08:53)
[2020-10-13] MEDS: POTASSIUM CHLORIDE 10MEQ EA PO SCH (08:53)
[2020-10-13] MEDS ORDERED: REGADENOSON 0.4 MG/5 ML SYR IV ONE (09:49)
[2020-10-14] VITALS: BP 107/48
[2020-10-14 04:00] VITALS: BP 130/63
[2020-10-14 05:47] LABS: BASOPHILS # (AUTO) 0.1 (0.0-0.1); BASOPHILS % 0.7 % (0.0-1.0); EOSINOPHILS # (AUTO) 1.3 (0.0-0.4); HEMATOCRIT 29.5 % (38.2-49.6); HEMOGLOBIN 9.2 g/dL (14.0-18.0); LYMPHOCYTES # (AUTO) 1.6 (1.0-3.2); LYMPHOCYTES % 19.6 % (18.0-39.1); MEAN CORPUSCULAR HEMOGLOBIN 27.8 pg (28-32); MEAN CORPUSCULAR HGB CONC 31.2 g/dL (31-35); MEAN CORPUSCULAR VOLUME 89.1 fL (81-99); MONOCYTES # (AUTO) 0.9 (0.2-0.8); MONOCYTES % 11.1 % (4.4-11.3); NEUTROPHILS # (AUTO) 4.3 (2.1-6.9); NEUTROPHILS % 52.4 % (38.7-80.0); PLATELET COUNT 179 x10e3/uL (140-360); RED BLOOD COUNT 3.31 x10e6/uL (4.3-5.7); RED CELL DISTRIBUTION WIDTH 13.6 % (11.7-14.4)
[2020-10-14 06:10] LABS: ANION GAP 9.1 mmol/L (8-16); CREATININE, SERUM 2.32 mg/dL (0.72-1.25); POTASSIUM 4.1 mmol/L (3.5-5.1)
[2020-10-14 08:15] VITALS: BP 138/61
[2020-10-14] MEDS: POTASSIUM CHLORIDE 10MEQ EA PO SCH (08:49)
[2020-10-14] MEDS: SERTRALINE HCL 50 MG TAB PO SCH (08:49)
[2020-10-14] MEDS: FUROSEMIDE INJ 10 MG/ML 4 ML VIAL IV SCH (08:49)
[2020-10-14] MEDS: APIXAB 2.5 MG TABLET PO SCH (08:49)
[2020-10-14] MEDS: FAMOTIDINE 20 MG TAB PO SCH (08:49)
[2020-10-14 08:54] VITALS: BP 138/61
[2020-10-14] MEDS ORDERED: LASIX40 MG PO (10:30)
[2020-10-14 11:45] VITALS: BP_SYST 122; BP_SYST 145; BP_DIAS 52; BP_DIAS 53
== END 2020-10-14 12:12 | disposition home or self-care (01) | DRG 291 ==
LOC: ER 21:27 → ERHOLD 23:31 → MED/SURG2 10-11 00:40
PROVIDERS: ADMIT Internal Medicine; ATTEND Internal Medicine
DX: I13.0 Hypertensive heart and chronic kidney disease with heart failure and stage 1 through stage 4 chronic kidney disease, or unspecified chronic kidney disease (principal); I50.23 Acute on chronic systolic (congestive) heart failure; I69.354 Hemiplegia and hemiparesis following cerebral infarction affecting left non-dominant side; R00.1 Bradycardia, unspecified; N18.30 Chronic kidney disease, stage 3 unspecified; Z88.0 Allergy status to penicillin; I25.10 Atherosclerotic heart disease of native coronary artery without angina pectoris; I25.2 Old myocardial infarction; Z98.61 Coronary angioplasty status; I48.91 Unspecified atrial fibrillation; D64.9 Anemia, unspecified; T46.2X5A Adverse effect of other antidysrhythmic drugs, initial encounter; T44.7X5A Adverse effect of beta-adrenoreceptor antagonists, initial encounter; Z20.822 Contact with and (suspected) exposure to COVID-19
CPT/HCPCS: 36415; 71045; 78452; 80048; 80053; 82550; 82553; 83880; 84443; 84484; 85025; 93005; 93017; 93306; 93880; 99285; A9502; J1940; U0002

== ENCOUNTER 2021-03-02 06:08 | Inpatient (IN) | payer MEDICARE ==
[~2021-03-02] VITALS: Ht 177.8 cm; Wt 98.0 kg
[~2021-03-02 06:08] MED LIST changes: +LASIX40 MG PO
[2021-03-02] MEDS ORDERED: SODIUM CHLORIDE 0.9% 500ML 500 ML IV ONE (06:45)
[2021-03-02] MEDS ORDERED: HYDROCODONE/APAP 5MG-325MG TAB PO ONE (06:45)
[2021-03-02] MEDS ORDERED: DIAZEPAM 2 MG TAB PO ONE (06:45)
[2021-03-02 06:47] LABS: BASOPHILS # (AUTO) 0.1 (0.0-0.1); BASOPHILS % 0.7 % (0.0-1.0); EOSINOPHILS # (AUTO) 0.7 (0.0-0.4); HEMOGLOBIN 9.9 g/dL (14.0-18.0); LYMPHOCYTES # (AUTO) 1.5 (1.0-3.2); LYMPHOCYTES % 17.7 % (18.0-39.1); MEAN CORPUSCULAR HEMOGLOBIN 28.2 pg (28-32); MEAN CORPUSCULAR HGB CONC 31.9 g/dL (31-35); MEAN CORPUSCULAR VOLUME 88.3 fL (81-99); MONOCYTES # (AUTO) 1.1 (0.2-0.8); MONOCYTES % 12.9 % (4.4-11.3); NEUTROPHILS % 60.3 % (38.7-80.0); PLATELET COUNT 226 x10e3/uL (140-360); RED BLOOD COUNT 3.51 x10e6/uL (4.3-5.7)
[2021-03-02 07:06] LABS: ALBUMIN 3.6 g/dL (3.5-5.0); ALBUMIN/GLOBULIN RATIO 0.9 (0.8-2.0); ANION GAP 17.7 mmol/L (8-16); CALCIUM 8.9 mg/dL (8.4-10.2); CREATININE, SERUM 4.36 mg/dL (0.72-1.25); POTASSIUM 3.7 mmol/L (3.5-5.1)
[2021-03-02 07:20] LABS: CLARITY,URINE CLEAR (CLEAR); COLOR,URINE YELLOW (YELLOW); KETONES,URINE NEGATIVE (NEGATIVE); LEUKOCYTE ESTERASE ,URINE NEGATIVE (NEGATIVE); NITRITE,URINE NEGATIVE (NEGATIVE); PROTEIN,URINE DIPSTICK TRACE (NEGATIVE); URINE UROBILINOGEN 0.2 mg/dL (0.2 - 1)
[2021-03-02 07:55] LABS: BACTERIA,URINE FEW /HPF; EPITHELIAL CELLS,URINE FEW /LPF; RBC,URINE 0-5 /HPF (0-5); WBC,URINE (MAN) 0-5 /HPF (0-5)
[2021-03-02 09:04] LABS: CREATINE KINASE MB 0.8 ng/mL (0-5.0)
[2021-03-02] MEDS ORDERED: SODIUM CHLORIDE 0.9% 1000ML 1,000 ML IV SCH (09:30)
[2021-03-02] MEDS ORDERED: ONDANSETRON HCL INJ 2MG/ML 2ML 2 MG/ML VIAL IV PRN ×2 (09:30→16:15)
[2021-03-02 10:51] LABS: INR 0.99; PROTHROMBIN TIME 13.7 seconds (11.9-14.5)
[2021-03-02 10:52] LABS: PARTIAL THROMBOPLASTIN TIME 28.1 seconds (23.8-35.5)
[2021-03-02] MEDS ORDERED: FUROSEMIDE40 MG PO (14:06)
[2021-03-02 14:07] VITALS: BP 152/63
[2021-03-02] MEDS ORDERED: METOPROLOL TART25 MG PO (14:16)
[2021-03-02 14:40] VITALS: BP 152/63
[2021-03-02] MEDS: HYDROCODONE/APAP 5MG-325MG TAB PO PRN (15:20)
[2021-03-02] MEDS ORDERED: POLYETHYLENE GLYCOL 3350 17 GM PACK PO PRN (16:15)
[2021-03-02] MEDS ORDERED: TIZANIDINE HCL 4 MG TAB PO PRN (16:15)
[2021-03-02] MEDS ORDERED: HYDRALAZINE HCL 20 MG/ML VIAL IV PRN (16:15)
[2021-03-02] MEDS ORDERED: ACETAMINOPHEN 325 MG TAB PO PRN (16:15)
[2021-03-02 16:45] VITALS: BP 167/59
[2021-03-02] MEDS: FAMOTIDINE 20 MG TAB PO SCH (16:45)
[2021-03-02] MEDS: DOCUSATE SODIUM 100 MG CAP PO SCH (16:45)
[2021-03-02] MEDS: APIXAB 2.5 MG TABLET PO SCH (16:45)
[2021-03-02] MEDS: METOPROLOL TARTRATE 25 MG TAB PO SCH (16:47)
[2021-03-02 20:00] VITALS: BP 157/56
[2021-03-02 20:10] VITALS: BP 157/56
[2021-03-02] MEDS: TAMSULOSIN HCL 0.4 MG CAP PO SCH (20:16)
[2021-03-02] MEDS: SIMVASTATIN 40 MG TAB PO SCH (20:16)
[2021-03-02] MEDS ORDERED: TEMAZEPAM 15 MG CAP PO PRN (21:00)
[2021-03-03] VITALS (7 sets, daily range): BP systolic 139–166; BP diastolic 53–63
[2021-03-03 05:15] LABS: BASOPHILS # (AUTO) 0.1 (0.0-0.1); BASOPHILS % 0.8 % (0.0-1.0); EOSINOPHILS # (AUTO) 0.9 (0.0-0.4); EOSINOPHILS % 10.8 % (0.0-6.0); HEMATOCRIT 32.5 % (38.2-49.6); HEMOGLOBIN 10.1 g/dL (14.0-18.0); LYMPHOCYTES # (AUTO) 1.6 (1.0-3.2); LYMPHOCYTES % 18.2 % (18.0-39.1); MEAN CORPUSCULAR HEMOGLOBIN 27.7 pg (28-32); MEAN CORPUSCULAR HGB CONC 31.1 g/dL (31-35); MONOCYTES # (AUTO) 1.1 (0.2-0.8); MONOCYTES % 12.1 % (4.4-11.3); NEUTROPHILS % 57.8 % (38.7-80.0); PLATELET COUNT 215 x10e3/uL (140-360); RED BLOOD COUNT 3.65 x10e6/uL (4.3-5.7); RED CELL DISTRIBUTION WIDTH 14.6 % (11.7-14.4)
[2021-03-03] MEDS: HYDROCODONE/APAP 5MG-325MG TAB PO PRN ×2 (05:17→14:24)
[2021-03-03 05:35] LABS: CHOL/HDL RATIO 5.8 (3.9-4.7)
[2021-03-03 05:51] LABS: ALBUMIN 3.3 g/dL (3.5-5.0); ALBUMIN/GLOBULIN RATIO 0.8 (0.8-2.0); ANION GAP 16.7 mmol/L (8-16); CALCIUM 8.8 mg/dL (8.4-10.2); CREATININE, SERUM 3.49 mg/dL (0.72-1.25); POTASSIUM 3.7 mmol/L (3.5-5.1)
[2021-03-03] MEDS: FAMOTIDINE 20 MG TAB PO SCH ×2 (07:35→17:12)
[2021-03-03] MEDS: DOCUSATE SODIUM 100 MG CAP PO SCH ×2 (08:00→17:12)
[2021-03-03] MEDS: APIXAB 2.5 MG TABLET PO SCH ×2 (08:00→17:12)
[2021-03-03] MEDS: FLUTICASONE PROPIONATE NASAL SPRAY NS SCH ×2 (08:00→17:12)
[2021-03-03] MEDS: METOPROLOL TARTRATE 25 MG TAB PO SCH ×2 (08:01→17:00)
[2021-03-03] MEDS: SERTRALINE HCL 50 MG TAB PO SCH (08:01)
[2021-03-03 19:34] LABS: CREATININE,URINE RANDOM 124.61 mg/dL (63-166)
[2021-03-03] MEDS: SIMVASTATIN 40 MG TAB PO SCH (21:29)
[2021-03-03] MEDS: TAMSULOSIN HCL 0.4 MG CAP PO SCH (21:29)
[2021-03-04] VITALS: BP 165/62
[2021-03-04] MEDS: HYDROCODONE/APAP 5MG-325MG TAB PO PRN ×3 (02:27→20:16)
[2021-03-04 04:00] VITALS: BP 126/43
[2021-03-04] MEDS: FAMOTIDINE 20 MG TAB PO SCH ×2 (07:57→16:19)
[2021-03-04] MEDS: FLUTICASONE PROPIONATE NASAL SPRAY NS SCH ×2 (08:03→16:19)
[2021-03-04] MEDS: METOPROLOL TARTRATE 25 MG TAB PO SCH ×2 (08:03→16:20)
[2021-03-04] MEDS: APIXAB 2.5 MG TABLET PO SCH ×2 (08:03→16:19)
[2021-03-04] MEDS: DOCUSATE SODIUM 100 MG CAP PO SCH ×2 (08:03→16:19)
[2021-03-04] MEDS: SERTRALINE HCL 50 MG TAB PO SCH (08:03)
[2021-03-04 08:35] VITALS: BP 158/61
[2021-03-04 09:00] VITALS: BP 158/61
[2021-03-04 11:48] VITALS: BP 146/64
[2021-03-04 14:16] LABS: ANION GAP 13.7 mmol/L (8-16); CALCIUM 8.5 mg/dL (8.4-10.2); CREATININE, SERUM 3.18 mg/dL (0.72-1.25); MAGNESIUM 2.2 MG/DL (1.3-2.1); PHOSPHORUS 3.6 MG/DL (2.3-4.7); POTASSIUM 3.7 mmol/L (3.5-5.1)
[2021-03-04] MEDS ORDERED: DICLOFENAC SOD 50 MG TAB PO SCH (15:00)
[2021-03-04 15:29] VITALS: BP 134/62
[2021-03-04] MEDS ORDERED: VOLTAREN100 GM TP (17:51)
[2021-03-04] MEDS ORDERED: ULTRAM 50MG50 MG PO (17:51)
== END 2021-03-04 20:20 | disposition home or self-care (01) | DRG 683 ==
LOC: ER 06:18 → ERHOLD 10:00 → MED/SURG 13:40
PROVIDERS: ADMIT Internal Medicine; ATTEND Internal Medicine
DX: N17.9 Acute kidney failure, unspecified (principal); I13.0 Hypertensive heart and chronic kidney disease with heart failure and stage 1 through stage 4 chronic kidney disease, or unspecified chronic kidney disease; I50.22 Chronic systolic (congestive) heart failure; I71.4 Abdominal aortic aneurysm, without rupture; N18.4 Chronic kidney disease, stage 4 (severe); M54.5 Low back pain; J44.9 Chronic obstructive pulmonary disease, unspecified; I25.10 Atherosclerotic heart disease of native coronary artery without angina pectoris; I25.2 Old myocardial infarction; I48.91 Unspecified atrial fibrillation; Z79.01 Long term (current) use of anticoagulants; Z98.61 Coronary angioplasty status; Z74.09 Other reduced mobility
CPT/HCPCS: 36415; 71045; 72110; 74176; 80048; 80053; 80061; 81001; 82550; 82553; 82575; 83036; 83735; 83880; 84100; 84484; 85025; 85610; 85730; 87086; 93005; 99284; J7030; J7040; U0002

== ENCOUNTER 2021-03-15 11:45 | Emergency (ER) | payer MEDICARE ==
[~2021-03-15] VITALS: Ht 177.8 cm; Wt 98.0 kg
[~2021-03-15 11:45] MED LIST changes: +ULTRAM 50MG50 MG PO; +VOLTAREN100 GM TP
[2021-03-15 12:17] LABS: BASOPHILS # (AUTO) 0.1 (0.0-0.1); BASOPHILS % 0.7 % (0.0-1.0); EOSINOPHILS % 18.2 % (0.0-6.0); HEMATOCRIT 37.4 % (38.2-49.6); LYMPHOCYTES # (AUTO) 1.9 (1.0-3.2); LYMPHOCYTES % 17.2 % (18.0-39.1); MEAN CORPUSCULAR HGB CONC 32.1 g/dL (31-35); MEAN CORPUSCULAR VOLUME 87.4 fL (81-99); MONOCYTES # (AUTO) 1.1 (0.2-0.8); MONOCYTES % 9.6 % (4.4-11.3); NEUTROPHILS # (AUTO) 5.9 (2.1-6.9); NEUTROPHILS % 53.8 % (38.7-80.0); PLATELET COUNT 232 x10e3/uL (140-360); RED BLOOD COUNT 4.28 x10e6/uL (4.3-5.7)
[2021-03-15 12:37] LABS: CREATININE, SERUM 3.12 mg/dL (0.72-1.25)
[2021-03-15 12:39] LABS: CLARITY,URINE CLEAR (CLEAR); COLOR,URINE YELLOW (YELLOW)
[2021-03-15 12:40] LABS: KETONES,URINE NEGATIVE (NEGATIVE); LEUKOCYTE ESTERASE ,URINE NEGATIVE (NEGATIVE); MUCUS,URINE FEW (RARE); NITRITE,URINE NEGATIVE (NEGATIVE); PROTEIN,URINE DIPSTICK 1+ (NEGATIVE); RBC,URINE 0-5 /HPF (0-5); URINE UROBILINOGEN 1 mg/dL (0.2 - 1); WBC,URINE (MAN) 0-5 /HPF (0-5)
[2021-03-15] MEDS ORDERED: LIDOCAINE 4% PATCH TP SCH (13:00)
[2021-03-15 15:45] VITALS: BP 151/65
== END 2021-03-15 15:49 | disposition home or self-care (01) ==
LOC: ER 12:02
DX: M54.5 Low back pain (principal); I10 Essential (primary) hypertension; I50.9 Heart failure, unspecified; I48.91 Unspecified atrial fibrillation; I25.10 Atherosclerotic heart disease of native coronary artery without angina pectoris; N18.30 Chronic kidney disease, stage 3 unspecified; M54.9 Dorsalgia, unspecified; G89.29 Other chronic pain; I25.2 Old myocardial infarction; Z86.73 Personal history of transient ischemic attack (TIA), and cerebral infarction without residual deficits
CPT/HCPCS: 36415; 80048; 81001; 85025; 99283